=== PATIENT | male | born 1945 | race Caucasian/White ===

== ENCOUNTER 2020-08-02 11:58 | Inpatient (IN) | payer MEDICARE, SELFPAY ==
[2020-08-02] VITALS (40 sets, daily range): BP systolic 80–119; BP diastolic 54–81; PULSE 85–120; RESP 14–35; TEMP 38.1; O2SAT 88–95; BMI 22.4
--- NOTE | 2020-08-02 12:00 | XRR_ITS ---
PROCEDURE INFORMATION: Exam: XR Chest Exam date and time: 08/02/2020 12:34 PM Age: 74 years old Clinical indication: Chest pain; Additional info: Cp TECHNIQUE: Imaging protocol: XR of the chest Views: 1 view. COMPARISON: No relevant prior studies available. FINDINGS: Lungs: Hyperinflation. Bilateral upper lung nodular opacities. Nonspecific interstitial thickening. Pleural spaces: Unremarkable. No pleural effusion. No pneumothorax. Heart/Mediastinum: Minimal cardiomegaly. CABG. Bones/joints: Sternotomy. XR/XR chest 1V portable [id number] IMPRESSION: Bilateral upper lung nodular opacities and interstitial thickening. Consider follow-up.
--- NOTE | 2020-08-02 12:18 | ECG_ITS ---
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 Measurements Intervals [place] Rate: 103 P: 68 VT: 158 QRS: 248 QRSD: 134 T: 30 QT: 346 QTc: 455 Interpretive Statements SINUS TACHYCARDIA WITH OCCASIONAL SUPRAVENTRICULAR PREMATURE COMPLEXES MARKED RIGHT AXIS DEVIATION [QRS AXIS > 100] RIGHT BUNDLE BRANCH BLOCK [120+ ms QRS DURATION, UPRIGHT V1, 40+ ms S IN I/aVL/V4/V5/V6] MARKED ST DEPRESSION, CONSIDER SUBENDOCARDIAL INJURY [0.2+ mV ST DEPRESSION] Compared to ECG 08/02/2020 13:37:05 Right-axis deviation now present Myocardial infarct finding no longer present ST (T wave) deviation still present Electronically Signed On 08-02-2020 22:44:01 CDT by Tate Iglesias M.D. [id number]
[2020-08-02 12:22] LABS: Glucose Point of Care 384 mg/dL (70-110)
[2020-08-02] MEDS: aspirin 325 mg Tablet PO (12:45)
[2020-08-02] MEDS: nitroglycerin 0.4 mg sublingual Tablet SUBLINGUAL (12:48)
[2020-08-02 13:16] LABS: Basophils % 0.2 %; Eosinophils % 0.2 %; Hematocrit 44.9 % (42.0-52.0); Hemoglobin 14.8 g/dL (11.7-16.6); Lymphocytes # 0.9 10^3/uL (0.8-4.8); Lymphocytes % 5.3 %; Mean Corpuscular Hemoglobin 28.7 pg (28.0-34.0); Mean Platelet Volume 11.2 fL (7.4-10.4); Monocytes # 1.4 10^3/uL (0.2-0.9); Neutrophils # 14.94 10^3/uL (1.8-7.7); Neutrophils % 85.8 %; Nucleated Red Blood Cells % 0 %; Platelet Count 167 10^3/cmm (130-400); Red Blood Count 5.16 10^6/uL (4.1-5.3); White Blood Count 17.4 10^3/uL (4.0-10.0)
[2020-08-02 13:49] LABS: D Dimer 1.12 ug/mIFEU (0-0.59)
[2020-08-02 13:51] LABS: Troponin(5th) Baseline 3200 ng/L (0-15)
[2020-08-02 13:57] LABS: SARS Covid-2 Antigen Negative (Negative)
--- NOTE | 2020-08-02 14:01 | XACV_ITS ---
Ht: 175 cm Wt: 69 kg BSA: 1.83 m2 Gender: Male : 1945 Any Known Allergies: Penicillins Exam Priority: Routine Procedure(s): Procedure Description: Diagnostic procedure Procedure Description: Left Heart Catheterization Procedure Description: Aortogram Procedure Description: Coronary Angiography Diagnostic Cath Status: Urgent Diagnostic Findings * LAD is occluded in the mid segment after the take off of the diagonal artery. Diagonal artery has a 90% stenosis. * LM is a small caliber vessel. It has diffuse severe 60% stenosis, ARIELLA: 3 flow. * pCIRC to dCIRC: Severe 90% stenosis, ARIELLA: 3 flow. Serial lesions. * SVG to 2nd OM: 100% stenosis, ARIELLA: 0 flow. Culprit lesion. * pRCA: Severe 100% stenosis, ARIELLA: 0 flow. 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 * 1st Diag: Severe 90% stenosis, ARIELLA: 3 flow. * Three grafts visualized. * COBB to dLAD: patent. * SVG to RPDA: 100% stenosis, ARIELLA: 0 flow. * Coronary angiography shows right dominance. Conclusions 1. Indication: Patient presented late with Acute VA. Patient had chest pain for 3 days. On presentation to hospital, chest pain resolved. Initial troponin is elevated at 3200. Plan for diagnostic coronary angiogram. 2. COBB to LAD is patent (not supplying a large vascular bed). SVG to RCA chronically occluded. SVG to OM is the culprit for delayed presentation of VA and is completely occluded. 3. Elevated LVEDP. 4. There is severe coronary artery disease with three vessel disease. 5. Patient has prior CABG. Recommendations * Given patient's delayed presentation of VA, heart failure, elevated LVEDP and resolution of chest pain plan is to perform staged percutaneous coronary intervention of left main to left circumflex artery once patient is euvolemic. * Admit to CSU. * Trend troponin. * Aspirin and Plavix for atleast 1 year. * High intensity statin therapy. * Beta blockers as tolerated. * Order echocardiogram. Interventional RX Recommendation: medical therapy and/or counseling Diagnostic RX Recommendation: medical therapy and/or counseling Anticoagulation: Heparin Pressures Phase:Rest AO : 99 / 18 ( 49 ) @ 10:19:00 AM 92 / 49 ( 69 ) @ 10:19:00 AM LV : 97 / 5 / @ 10:19:00 AM Clinical Evaluation EBL: 5mL-10mL Procedural Details Procedure Consent Obtained. Pre-Procedure Time Out. Identified patient by full name and date of as verbalized by the patient/guarantor. Does the consent match the physician's order: N/A Emergent; Informed Consent not obtained due to time critical life threat. Accurate & Complete Informed Consent: N/A Emergent; Informed Consent not obtained due to time critical life threat. Inpatient/Outpatient History & Physical on Chart: N/A Emergent; Informed Consent not obtained due to time critical life threat. If H&P is completed, is and addenduem needed: N/A Emergent; Informed Consent not obtained due to time critical life threat; If yes, is the addendum complete: N/A Emergent; Informed Consent not obtained due to time critical life threat. Visualize and Verify Site with Patient/Guarantor: N/A. Relevant Radiology Images available: N/A Emergent; Informed Consent not obtained due to time critical life threat. Pre-op teaching completed and patient verbalized understanding. The risks, benefits, and alternatives of sedation and/or procedure were discussed by physician. The patient agrees to continue. Procedure started. PERRLA. 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 Lungs clear x 5 lobes. IV Site on Arrival: 20 gauge in the right anticubital. IV Site on Arrival: 20 gauge in the left anticubital. IV Fluids: 0.9% NaCl at KVO. 0 mL infused prior to environmental laboratory technician. Oxygen started at 2liters/min via nasal canula. bilateral groins was prepped with chloroprep then draped in the usual sterile fashion. Physician notified. Baseline sample Acquired. HR: 59 BPM. Equipment: 6F - Femoral. Cardiac Cath Pack. ACIST Manifold Kit Model BT 2000. Heparinized Saline (2 units/mL), 1000 mL bag. Kit, Micropuncture. Physician arrived. Physician scrubbed in. Immediate Pre-Procedure Time Out. Correct Patient: Yes; Correct Procedure: Yes; Correct Site: Yes; Correct Patient Position: Yes; Correct Supplies: Yes; Dried Flammable Prep: Yes; Blood Products Available: No;. Lidocaine 1% infiltrated to the right groin. Arterial access obtained with micropuncture set. A 6 algerian JL4 catheter in over wire. Multiple views taken of left coronary artery. Catheter out. A 6 algerian JR4 catheter in over wire. Multiple views taken of right coronary artery. SVG to Diaganol occluded. SVG to RCA occluded. exchange wire removed. guidewire insterted. Inventory is TR Glidewire Angled Stiff Shaft .035 260cm. COBB to LAD visualized. Catheter out. A 6 algerian Angled Pig catheter in over wire. EDP Sample taken: LV 97/5,25; HR: 94 BPM; SpO2: Off%. Pullback taken: LV Off; AO Off; Mean: , Peak to Peak: , SEP: ; HR: 92 BPM; SpO2: 92%. Aortogram performed in [place] @ 20 mL/second for a total of 40 mL. Catheter out. A Suture was successful obtaining hemostatsis at the Right Femoral artery insertion site. Sheath(s) sutured into position with 2-0 silk and sterile 4x4's and Op-site applied over the site. No oozing or signs and symptoms of hematoma noted. Arterial sheath flushed and connected to tranducer and pressure bag with heparinized saline. PERRLA. 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 No VTE prophylaxis required. Fluoro: 9:06. Contrast type used: Omnipaque 300 mgI/mL, 500 mL bottle. [id number]. Complications: none. Estimated blood loss: 5mL-10mL. Procedure completed. Post-op diagnosis: occluded svg to rca, om, diag. Medication's Wasted: Lidocaine 1% = 10 mL. Medication's Wasted: Nitro = 50 mg. Medication's Wasted: Heparin = 4000 units. Medication's Wasted: Other = versed 1 mg. Medication's Wasted: Other = fentanyl 50 mcg. Total IV fluids: 52.6 mL. Patient transferred by bed to 1st floor. [facility] Clinical Fraility Score: 3: Managing Well. Cloth Winding Supervisor Indications: ACS > 24 hours. Chest Pain Symptom Assessment: Typical Angina Symptoms. Access Site Site: Right Femoral artery Sheath Size: 6 Fr Hemostasis Method: Suture Hemostasis Success: Successful Procedure Medications Start: 2:47 PM Stop: 2:47 PM Medication: Versed Amount: 1 mg Route: I.V. Start: 2:47 PM Stop: 2:47 PM Medication: Fentanyl Amount: 25 mcg Route: I.V. Start: 2:55 PM Stop: 2:55 PM Medication: Versed Amount: 1 mg Route: I.V. Start: 2:56 PM Stop: 2:56 PM Medication: Fentanyl Amount: 25 mcg Route: I.V. Start: 3:11 PM Stop: 3:11 PM Medication: Versed Amount: 1 mg Route: I.V. I, the attending physician, have reviewed and verified all procedure medications. Yes, all medications given per verbal order History/Risk Factors Hypertension: Yes Dyslipidemia: No Peripheral Arterial Disease (PAD): No Myocardial Infarction (VA): Yes Obesity: No Renal Disease: No Tobacco Use: Former Prior Interventions PCI: Yes CABG: Yes Valve Surgery: No Report Signatures Finalized by Betito Jolly MD on 08/09/2020 03:46 PM
--- NOTE | 2020-08-02 14:05 | W.ED.CHESTPA ---
HPI - Chest Pain General: Chief Complaint: Chest Pain Stated Complaint: CP Time Seen by Provider: 08/02/20 12:15 History of Present Illness: HPI narrative: The patient is a 74-year-old male who comes to the ER complaining of 3 days of on and off chest pressure, shortness of breath which is worse with exertion. He has a history of a CABG in 2007 and has not had chest pain since then. On arrival he was given aspirin 325 and a nitroglycerin which relieved his chest pressure entirely. MD complaint: chest pain Pertinent past history: coronary artery disease, prior SD and CABG Onset (ago): day(s) (3) Onset: during rest and during exertion Pain location: left chest Severity: moderate Quality: tightness, heaviness and similar to prior SD Relieving factors: nitroglycerin Exacerbating factors: exertion Associated symptoms: Reports dyspnea; Deny abdominal pain or palpitations Review of Systems General: Reports: 10 or more systems reviewed and unremarkable except in HPI and below Const: Denies: fatigue Eyes: Denies: change in vision, blurry vision or eye redness ENMT: Denies: throat pain, swelling of lips/tongue, ear or mastoid pain or nasal congestion Card: Reports: chest pain; Denies: palpitations, irregular heart rhythm, edema, dyspnea on exertion or orthopnea Resp: Reports: dyspnea GI: Denies: abdominal pain, diarrhea or GI cramping : Denies: flank pain, urinary frequency or urinary urgency Musc: Denies: neck pain, back pain, extremity pain, joint pain, joint redness, limited range of motion or muscle weakness Skin/Breast: Denies: rash, pruritus, erythema, skin pain or skin tenderness Neuro: Denies: headache(s), numbness in extremities, weakness in extremities, sensory changes, difficulty walking, dizziness, confusion or Slurred speech present Psych: Denies: anxiety or depression Endo: Denies: polyuria All/Imm: Denies: urticaria, throat swelling or tongue swelling Physical Exam Const: COMMON NORMALS: no acute distress, average body habitus, patient oriented x3, no limitations, healthy appearing, alert and well nourished GENERAL APPEARANCE: cooperative, comfortable, well kempt and well developed ORIENTATION/CONSCIOUSNESS: Yes awake, Yes oriented to person, Yes oriented to place and Yes oriented to time HENMT: COMMON NORMALS: normocephalic, external ears normal and Normal external nose present HEAD & SCALP: normal to inspection and normocephalic NOSE: Normal external nose present EXTERNAL EAR: Yes external ears normal MOUTH: Normal oral and palatal mucosa present THROAT: posterior oropharynx normal Eye: COMMON NORMALS: Equal, round and reactive pupils present and EOMs intact bilaterally GENERAL EYE: appearance normal, both eyes and all related structures PUPIL: Yes Equal, round and reactive pupils present Neck/C-Spine: COMMON NORMALS: full ROM, no lymphadenopathy, no meningeal signs and no JVD GENERAL: Yes normal visual inspection Lymph: LYMPHATIC: no lymphadenopathy noted Chest: COMMONS NORMALS: normal inspection of the chest and normal palpation of entire chest wall Resp: COMMON NORMALS: normal respiratory effort, No retractions, No use of accessory muscles, clear to auscultation bilaterally and percussion normal EFFORT & INSPECTION: Yes able to speak in complete sentences AUSCULTATION: clear to auscultation bilaterally PERCUSSION: percussion normal Cardio: COMMON NORMALS: no JVD, regular rate, regular rhythm, S1 normal heart sound present, S2 normal heart sound present and Peripheral pulses 2+ throughout RATE: regular rate RHYTHM: regular rhythm HEART SOUNDS: S1 normal heart sound present and S2 normal heart sound present PERIPHERAL PULSES: Peripheral pulses 2+ throughout GI: COMMON NORMALS: Normal to inspection, nondistended, normoactive bowel sounds present, Soft to palpation, non-tender and no masses INSPECTION: Yes normal to inspection PALPATION: Yes Soft to palpation : COMMON NORMALS: Yes no CVA tenderness BLADDER/KIDNEY EXAM: Yes no CVA tenderness Back/Pelvis: COMMON NORMALS: no CVA tenderness, thoracic and lumbar spine normal to inspection, no thoracic nor lumbar tenderness and thoraco-lumbar ROM normal Extremity: COMMON NORMALS: normal to inspection, full ROM, capillary refill normal, no joint enlargement and no pedal edema GENERAL: Yes normal exam except as noted Neuro: COMMON NORMALS: patient oriented x3, CN's II-XII intact bilaterally, moves all extremities, no focal motor deficits, no sensory deficits noted and gait normal SENSORIUM/ORIENTATION: Yes alert, Yes oriented to person, Yes oriented to place and Yes oriented to time MENINGEAL SIGNS: Yes no meningeal signs Psych: COMMON NORMALS: mental status grossly normal, Normal thought process present, cooperative, normal affect and speech normal APPEARANCE: Yes well kempt ATTITUDE: Yes calm SPEECH: Yes normal speech THOUGHT PROCESS: Normal thought process present Skin: COMMON NORMALS: no rashes or lesions noted GENERAL SKIN EXAM: no rashes or lesions noted Course Vital Signs: Vital signs: Vital Signs Pulse Rate 101 H 08/02/20 14:00 Respiratory Rate 24 H 08/02/20 14:00 Blood Pressure 100/72 08/02/20 14:00 Pulse Oximetry 95 08/02/20 14:00 MDM - Chest Pain MDM Narrative: Medical decision making narrative: Patient has had 3 days of chest pain typical angina. Given aspirin and nitroglycerin. The single nitroglycerin resolved his pain completely. Troponin is [address] some [address] depressions. Got Dr. Jolly involved early and he initially recommended no intervention however when the troponin came back 3200 he recommended taking 2 cath for a diagnostic evaluation. Lab Data: Labs: Lab Results 08/02/20 08/02/20 08/02/20 Range/Units 11:41 11:41 11:41 WBC 17.4 H (4.0-10.0) 10^3/ uL RBC 5.16 (4.1-5.3) 10^6/u L Hgb 14.8 (11.7-16.6) g/dL Hct 44.9 (42.0-52.0) % MCV 87.0 (80-94) fL MCH 28.7 (28.0-34.0) pg MCHC 33.0 (30.0-36.0) g/dL RDW 13.0 (12.1-15.1) % Plt Count 167 (130-400) 10^3/c mm MPV 11.2 H (7.4-10.4) fL Neut % (Auto) 85.8 % Lymph % (Auto) 5.3 % [place] % (Auto) 8.0 % Eos % (Auto) 0.2 % Baso % (Auto) 0.2 % Neut # (Auto) 14.94 H (1.8-7.7) 10^3/u L Lymph # (Auto) 0.9 (0.8-4.8) 10^3/u L [place] # (Auto) 1.4 H (0.2-0.9) 10^3/u L Eos # (Auto) 0.0 (0.0-0.8) 10^3/u L Baso # (Auto) 0.0 (0.0-0.1) 10^3/u L Nucleated RBC % (a uto) 0 % Nucleated RBCs # 0.0 /100WBC D-Dimer (0-0.59) ug/mIFE U Sodium 127 L (136-145) mmol/L Potassium 4.4 (3.5-5.1) mmol/L Chloride 91 L (98-107) mmol/L Carbon Dioxide 19 L (22-29) mmol/L Anion Gap 21.4 H (5-19) BUN 32 H (8-23) mg/dL Creatinine 1.1 (0.7-1.2) mg/dL GFR Calculation Not Reportable Glucose 378 H (65-115) mg/dL POC Glucose (70-110) mg/dL Calculated Osmolal ity 286 (285-295) mOsm/k g Calcium 9.5 (8.5-10.5) mg/dL Total Bilirubin 1.3 H (0.15-1.2) mg/dL AST 66 H (0-40) U/L ALT 45 H (0-41) U/L Alkaline Phosphata se 69 (40-130) IU/L Troponin T Baselin e 3200 H* (0-15) ng/L Delta Troponin T (0-10) ABS# NT-Pro-B Natriuret Pep 48189 H (0-125) pg/mL Total Protein 7.3 (6.6-8.7) g/dL Albumin 3.5 (3.5-5.2) g/dL Globulin 3.8 (1.3-4.6) g/dL Urine Color (Yellow) Urine Appearance (CLEAR) Urine pH (5-7) Ur Specific Gravit y (1.005-1.030) Urine Protein (Negative) Urine Glucose (UA) (Normal) Urine Ketones (Negative) Urine Blood (Negative) Urine Nitrate (Negative) Urine Bilirubin (Negative) Urine Urobilinogen (Negative) mg/dL Ur Leukocyte Elly ase (Negative) Urine RBC (0-2) /hpf Urine WBC (0-5) /hpf Ur Squamous Epith Cells (0-5) /hpf Amorphous Sediment Urine Bacteria (NONE) /hpf SARS-CoV-2 Ag (Rap id) (Negative) 0308/02/20 08/02/20 Range/Units 11:41 12:20 12:36 WBC (4.0-10.0) 10^3/ uL RBC (4.1-5.3) 10^6/u L Hgb (11.7-16.6) g/dL Hct (42.0-52.0) % MCV (80-94) fL MCH (28.0-34.0) pg MCHC (30.0-36.0) g/dL RDW (12.1-15.1) % Plt Count (130-400) 10^3/c mm MPV (7.4-10.4) fL Neut % (Auto) % Lymph % (Auto) % [place] % (Auto) % Eos % (Auto) % Baso % (Auto) % Neut # (Auto) (1.8-7.7) 10^3/u L Lymph # (Auto) (0.8-4.8) 10^3/u L [place] # (Auto) (0.2-0.9) 10^3/u L Eos # (Auto) (0.0-0.8) 10^3/u L Baso # (Auto) (0.0-0.1) 10^3/u L Nucleated RBC % (a uto) % Nucleated RBCs # /100WBC D-Dimer 1.12 H (0-0.59) ug/mIFE U Sodium (136-145) mmol/L Potassium (3.5-5.1) mmol/L Chloride (98-107) mmol/L Carbon Dioxide (22-29) mmol/L Anion Gap (5-19) BUN (8-23) mg/dL Creatinine (0.7-1.2) mg/dL GFR Calculation Glucose (65-115) mg/dL POC Glucose 384 H (70-110) mg/dL Calculated Osmolal ity (285-295) mOsm/k g Calcium (8.5-10.5) mg/dL Total Bilirubin (0.15-1.2) mg/dL AST (0-40) U/L ALT (0-41) U/L Alkaline Phosphata se (40-130) IU/L Troponin T Baselin e (0-15) ng/L Delta Troponin T (0-10) ABS# NT-Pro-B Natriuret Pep (0-125) pg/mL Total Protein (6.6-8.7) g/dL Albumin (3.5-5.2) g/dL Globulin (1.3-4.6) g/dL Urine Color Dark yellow (Yellow) Urine Appearance Hazy A (CLEAR) Urine pH 5 (5-7) Ur Specific Gravit y 1.030 (1.005-1.030) Urine Protein Trace (Negative) Urine Glucose (UA) 4+ H (Normal) Urine Ketones 2+ H (Negative) Urine Blood 3+ H (Negative) Urine Nitrate Negative (Negative) Urine Bilirubin Neg (Negative) Urine Urobilinogen Norm (Negative) mg/dL Ur Leukocyte Elly ase Trace H (Negative) Urine RBC 15-25 H (0-2) /hpf Urine WBC 25-40 H (0-5) /hpf Ur Squamous Epith Cells 0-4 H (0-5) /hpf Amorphous Sediment Not Reportable Urine Bacteria 3+ H (NONE) /hpf SARS-CoV-2 Ag (Rap id) (Negative) 08/02/20 08/02/20 Range/Units 13:02 13:45 WBC (4.0-10.0) 10^3/ uL RBC (4.1-5.3) 10^6/u L Hgb (11.7-16.6) g/dL Hct (42.0-52.0) % MCV (80-94) fL MCH (28.0-34.0) pg MCHC (30.0-36.0) g/dL RDW (12.1-15.1) % Plt Count (130-400) 10^3/c mm MPV (7.4-10.4) fL Neut % (Auto) % Lymph % (Auto) % [place] % (Auto) % Eos % (Auto) % Baso % (Auto) % Neut # (Auto) (1.8-7.7) 10^3/u L Lymph # (Auto) (0.8-4.8) 10^3/u L [place] # (Auto) (0.2-0.9) 10^3/u L Eos # (Auto) (0.0-0.8) 10^3/u L Baso # (Auto) (0.0-0.1) 10^3/u L Nucleated RBC % (a uto) % Nucleated RBCs # /100WBC D-Dimer (0-0.59) ug/mIFE U Sodium (136-145) mmol/L Potassium (3.5-5.1) mmol/L Chloride (98-107) mmol/L Carbon Dioxide (22-29) mmol/L Anion Gap (5-19) BUN (8-23) mg/dL Creatinine (0.7-1.2) mg/dL GFR Calculation Glucose (65-115) mg/dL POC Glucose (70-110) mg/dL Calculated Osmolal ity (285-295) mOsm/k g Calcium (8.5-10.5) mg/dL Total Bilirubin (0.15-1.2) mg/dL AST (0-40) U/L ALT (0-41) U/L Alkaline Phosphata se (40-130) IU/L Troponin T Baselin e (0-15) ng/L Delta Troponin T 1 (0-10) ABS# NT-Pro-B Natriuret Pep (0-125) pg/mL Total Protein (6.6-8.7) g/dL Albumin (3.5-5.2) g/dL Globulin (1.3-4.6) g/dL Urine Color (Yellow) Urine Appearance (CLEAR) Urine pH (5-7) Ur Specific Gravit y (1.005-1.030) Urine Protein (Negative) Urine Glucose (UA) (Normal) Urine Ketones (Negative) Urine Blood (Negative) Urine Nitrate (Negative) Urine Bilirubin (Negative) Urine Urobilinogen (Negative) mg/dL Ur Leukocyte Elly ase (Negative) Urine RBC (0-2) /hpf Urine WBC (0-5) /hpf Ur Squamous Epith Cells (0-5) /hpf Amorphous Sediment Urine Bacteria (NONE) /hpf SARS-CoV-2 Ag (Rap id) Negative (Negative) Discharge Plan Discharge Patient Disposition: Admitted As Inpatient Clinical Impression: Stable angina Condition: Stable Coding Level of Care Code ED Registered Private Duty Nurse for Terese Fwd Exam Comprehensive
[2020-08-02] MEDS: clopidogrel 300 mg Tablet 600 MG PO (14:08)
[2020-08-02 14:14] LABS: Alanine Aminotransferase 45 U/L (0-41); Albumin Level 3.5 g/dL (3.5-5.2); Alkaline Phosphatase 69 IU/L (40-130); Blood Urea Nitrogen 32 mg/dL (8-23); Calcium 9.5 mg/dL (8.5-10.5); Carbon Dioxide 19 mmol/L (22-29); Chloride 91 mmol/L (98-107); Globulin 3.8 g/dL (1.3-4.6); Glucose 378 mg/dL (65-115); NT Pro B Type Natriuretic Pept 19065 pg/mL (0-125); Osmolality Calculated 286 mOsm/kg (285-295); Sodium 127 mmol/L (136-145); Total Bilirubin 1.3 mg/dL (0.15-1.2); Total Protein 7.3 g/dL (6.6-8.7)
[2020-08-02 14:14] LABS: Add Urine Microscopic? YES; Bilirubin Urine Neg (Negative); Blood Urine 3+ (Negative); Glucose Urine UA 4+ (Normal); Ketones Urine 2+ (Negative); Leukocyte Esterase Urine Trace (Negative); Nitrate Urine Negative (Negative); Protein Urine Trace (Negative); Urine Appearance Hazy (CLEAR); Urine Color Dark Yellow (Yellow); Urobilinogen Urine Norm (Negative); pH Urine 5 (5-7)
[2020-08-02 14:15] LABS: Add Urine Culture? Yes; Bacteria Urine 3+ /hpf; RBC Urine 15-25 /hpf (0-2); Squamous Epithelial Cell Urine 0-4 /hpf (0-5); WBC Urine 25-40 /hpf (0-5)
[2020-08-02 14:17] LABS: Anion Gap 21.4 (5-19); Aspartate Amino Transferase 66 U/L (0-40); Potassium 4.4 mmol/L (3.5-5.1)
--- NOTE | 2020-08-02 14:18 | ECG_ITS ---
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 Measurements Intervals [place] Rate: 103 P: 68 [place]: 163 QRS: -85 QRSD: 139 T: 37 QT: 383 QTc: 502 Interpretive Statements SINUS TACHYCARDIA WITH FREQUENT SUPRAVENTRICULAR PREMATURE COMPLEXES RIGHT BUNDLE BRANCH BLOCK [120+ ms QRS DURATION, UPRIGHT V1, 40+ ms S IN I/aVL/V4/V5/V6] INFERIOR MYOCARDIAL INFARCTION , OF INDETERMINATE AGE [40+ ms Q WAVE AND/OR ST/T ABNORMALITY IN II/aVF] MARKED ST DEPRESSION, CONSIDER SUBENDOCARDIAL INJURY [0.2+ mV ST DEPRESSION] ACUTE [place] Compared to ECG 08/02/2020 12:04:15 Right bundle-branch block now present Myocardial infarct finding now present ST (T wave) deviation now present Electronically Signed On 08-02-2020 22:53:16 CDT by Tate Iglesias M.D. [id number]
[2020-08-02] MEDS: heparin 5,000 unit/mL INJ 1 mL 4000 UNIT IVP (14:22)
--- NOTE | 2020-08-02 14:27 | PC.NURSE ---
patient denied any chest pain or abdominal pain at this time. no acute distress noted
[2020-08-02 14:31] LABS: Troponin 5 2HR Delta 1 ABS# (0-10)
[2020-08-02 14:47] LABS: Troponin 5 2HR 3201 ng/L (0-15)
--- NOTE | 2020-08-02 15:53 | P.HP_ITS ---
Providers/Chief Complaint Admitting Physician: Betito Jolly M.D Chief Complaint: CP History of Present Illness Ze Waite is a 74 year old male with PMH of hypertension, diabetes, coronary artery disease s/p CABG x5 at [facility] in [place] in 2007 presented with 3 days of on and off chest pain. Substernal and left sided severe chest pain. Last major episode was last night.This is associated with shortness of breath. Patient is now chest pain free. On presentation, EKG showed diffuse ST depressions. Initial troponin was 3200 and trended down. Patient was taken to the receiver/laborer. Coronary angiography showed occluded SVG grafts. Only COBB to LAD is patent. RCA is business continuity director. Left main to LCx has severe disease for which there will be staged PCI. Review of Systems Const: Denies: fever(s) or chills Eyes: Denies: change in vision ENMT: Denies: throat pain Card: Reports: chest pain, dyspnea on exertion and orthopnea Resp: Reports: dyspnea GI: Reports: nausea; Denies: abdominal pain : Denies: flank pain Musc: Denies: neck pain Skin/Breast: Denies: rash Neuro: Denies: headache(s) Psych: Denies: anxiety Endo: Denies: polyuria Daniel/Lymph: Denies: easy bruising All/Imm: Denies: urticaria Medications/Allergies Home Medications Medication Instructions Recorded Confirmed Last Taken Type cranberry extract 250 mg PO DAILY@08/02/20 08/02/20 08/02/20 History krill oil 1 cap PO DAILY@08/02/20 08/02/20 08/02/20 History liraglutide [Victoza 3-Ruben] 0.6 mg SUBCUT DAILY@08/02/20 08/02/20 08/01/20 History lutein 6 mg PO DAILY@08/02/20 08/02/20 08/02/20 History Allergies Allergy/AdvReac Type Severity Reaction Status Date / Time Penicillins Allergy ALGY-Anaphy Verified 08/02/20 12:37 laxis PFSH Acute PFSH: Medical History Abnormal colonoscopy Polypectomy BPH (benign prostatic hyperplasia) Diverticula of colon Hypertension Type 2 diabetes mellitus Surgical History S/P CABG (coronary artery bypass graft) 5 vessel bypass Family History Denies family history of Cancer Social History Smoking and tobacco status: former smoker Alcohol intake: never Substance/Drug Use: never Household members: family Housing: House Vitals/I&O/Wt Last Vital Signs Pulse 101 H 08/02/20 14:00 Resp 24 H 08/02/20 14:00 BP 100/72 08/02/20 14:00 Pulse Ox 95 08/02/20 14:00 Weight last 48 hrs Weight 152 lb Physical Exam Narrative: EXAM NARRATIVE: Alert and oriented x 3 S1, S2 no murmur No acute respiratory distress, clear to auscultation bilaterally Abdomen is soft nontender EOMI, PERRLA No neurological deficit No lower extremity edema Appropriate mood and affect Data : 08/02/20 11:41 08/02/20 11:41 A&P Assessment and plan (1) NSTEMI (non-ST elevated myocardial infarction): Status: Acute (2) Type 2 diabetes mellitus: Status: Acute (3) Hypertension: Status: Acute Patient has presented late with acute SD evidenced by significantly elevated troponin that trended down and spontaneous chest pain resolution. Coronary angiogram demonstrated, likely culprit was SVG to OM/diagonal that is ostially occluded. SVG to RCA is occluded as well. COBB to LAD is patent. Given patient is chest pain free now with downtrending troponins, his LVEDP was significantly elevated, we decided to perform PCI of left main to LCx as a staged procedure in 2 days. Continue aspirin and Plavix High intensity statin therapy Therapeutic anticoagulation for atleast 48 hours (to be started 4 hours after the sheath is removed and no bleeding is noted) Patient's LVEDP and NT Pro BNP is elevated, will start Lasix 20mg IV bid from tomorrow morning Possible UTI. We have consulted hospitalist service to help with management of medical issues including antibiotic management and diabetes. Appreciate input ECHO has been ordered Attestations Medical Necessity Statement*: Care expected to cross 2 midnights. Patient has presented late with SD. Will need staged PCI in 2 day once is euvolemic Coding Level of Care Code Acute Chip Washer for g Fwd Diagnoses NSTEMI (non-ST elevated myocardial infarction) I21.4 Type 2 diabetes mellitus E11.9 Hypertension I10
--- NOTE | 2020-08-02 16:00 | P.CONIM_ITS ---
Providers/Reason For Consult Consulting Physican/Specialty*: Hospitalist service Reason for Consult*: Type 2 diabetes hyperglycemia Attending Physician: Betito Jolly M.D History of Present Illness History of Present Illness Ze Waite is a 74 year old male who has history of type 2 diabetes, takes Victoza at home presents today with chief complaint of chest pain. Patient is stating that his symptoms started on Monday. He has been having intermittent chest pain and last night it was the worse he could only sleep for 2 hours he is describing this chest pain as pressure-like sensation, excruciating pain. He has history of established coronary disease status post CABG. He was admitted under cardiology service for management of coronary ischemia. Hospitalist service is requested to manage her type 2 diabetes and active hyperglycemia. Patient is stating that at home his sugar runs normal but since Monday it has been running high around 300s despite not being able to eat much. He does not smoke or drink alcohol and tries to eat healthy diet. In last 3 to 4 days he has been experiencing urinary frequency without dysuria or fever I requested hemoglobin A1c started him on cardiac/consistent carb diet and moderate sliding scale When I saw him his blood pressure was 99/47 mmHg chest pain-free troponin 3200, BNP 19,000 however clinically he looks euvolemic saturating well on room air He was taken to the cardiac Violin Mechanic from the ER. Review of Systems Const: Denies: fever(s) or chills Eyes: Denies: change in vision ENMT: Denies: throat pain Card: Reports: chest pain, dyspnea on exertion and orthopnea Resp: Reports: dyspnea GI: Reports: nausea; Denies: abdominal pain : Denies: flank pain Musc: Denies: neck pain Skin/Breast: Denies: rash Neuro: Denies: headache(s) Psych: Denies: anxiety Endo: Denies: polyuria Daniel/Lymph: Denies: easy bruising All/Imm: Denies: urticaria Meds/Allergies Home Medications and Allergies Home Medications Medication Instructions Recorded Confirmed Last Taken Type cranberry extract 250 mg PO DAILY@08/02/20 08/02/20 08/02/20 History krill oil 1 cap PO DAILY@08/02/20 08/02/20 08/02/20 History liraglutide [Victoza 3-Ruben] 0.6 mg SUBCUT DAILY@12 08/02/20 08/02/20 08/01/20 History lutein 6 mg PO DAILY@09 08/02/20 08/02/20 08/02/20 History Allergies Allergy/AdvReac Type Severity Reaction Status Date / Time Penicillins Allergy ALGY-Anaphy Verified 08/02/20 12:37 laxis PFSH Acute PFSH: Medical History Abnormal colonoscopy Polypectomy BPH (benign prostatic hyperplasia) Diverticula of colon Hypertension Type 2 diabetes mellitus Surgical History S/P CABG (coronary artery bypass graft) 5 vessel bypass Family History Denies family history of Cancer Social History Smoking and tobacco status: former smoker Alcohol intake: never Substance/Drug Use: never Household members: family Housing: House Vitals/I&O/Wt Last Vital Signs Pulse 101 H 08/02/20 14:00 Resp 24 H 08/02/20 14:00 BP 100/72 08/02/20 14:00 Pulse Ox 95 08/02/20 14:00 Weight last 48 hrs Weight 68.946 kg Physical Exam Narrative: EXAM NARRATIVE: Very pleasant elderly male who appears younger than stated age Was laying comfortably in his bed in supine position saturating well on room air S1, S2 no murmur appreciated no active signs of fluid overload No acute respiratory distress Abdomen is soft nontender EOMI, PERRLA No neurological deficit Low symmetry no edema gangrene ulcer Appropriate mood and affect No joint swelling A&P Assessment and plan (1) STEMI (ST elevation myocardial infarction): Status: Acute (2) Type 2 diabetes mellitus: Status: Inactive Additional A&P Information STEMI STEMI alert was called in the ER, he went to the Violin Mechanic status post right femoral cardiac cath Please see cardiology note for the details, EKG concerning for posterior wall NJ Currently chest pain-free on aspirin, Plavix and statin will comanage along cardiology Femoral sheath has been pulled without any complication Type 2 diabetes Poorly controlled, hemoglobin A1c 9.3 I would start him on Lantus 10 units along with moderate dose sliding scale and consistent carb diet Lisinopril for microvascular benefits once his blood pressure is better Patient counseled will need diabetic insulin education High BNP however clinically patient does not look fluid overloaded He does have mild pulmonary vascular congestion with transaminitis Cardiology has started him on IV Lasix, monitor blood pressure as if systolic is soft 99 to 100 mmHg Polyuria without any active signs of UTI I would not start ceftriaxone he does not meet sepsis criteria is leukocytosis is most likely secondary to stress response of STEMI Full code Consistent carb diet DVT prophylaxis low Consult Attestations Medical Necessity Statement: As per cardiology Time Spent in Patient Care: (>than 50% of time spent in counselling and/or direct pt care on unit) . 35mins Coding Level of Care Code Acute Farm Management Adviser for Terese Somers Diagnoses STEMI (ST elevation myocardial infarction) I21.3 Type 2 diabetes mellitus E11.9
[2020-08-02 16:50] LABS: Glucose Point of Care 363 mg/dL (70-110)
[2020-08-02 17:33] LABS: Partial Thromboplastin Time 37.5 SECONDS (23.9-36.7)
[2020-08-02 17:56] LABS: Estmated Average Glucose 220; Hemoglobin A1C 9.3 % (4.0-6.0)
--- NOTE | 2020-08-02 18:00 | ECG_ITS ---
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 Measurements Intervals [place] Rate: P: DC: QRS: 0 QRSD: T: 0 QT: QTc: Interpretive Statements Atrial fibrillation with controlled ventricular response rate Features of right ventricular hypertrophy NO FURTHER INTERPRETATION POSSIBLE ATYPICAL ECG WARNING: DATA QUALITY MAY AFFECT INTERPRETATION No previous ECG available for comparison Electronically Signed On 08-02-2020 22:52:20 CDT by Tate Iglesias M.D. [id number]
--- NOTE | 2020-08-02 18:00 | PC.NURSE ---
Sheath removed per instructions received via telephone from Dr. Jolly pulls sheath when PTT is less than 45 Instructions to start Lovenox sub q 4 hours after sheath pull; run IV fluids from catholic priest at 75ml/hr for 4 hours and stop no hematoma or outward events noted patient tolerated sheath removal well
[2020-08-02] MEDS: FUROsemide 10 mg/mL SDV 2mL 20 MG IVP (18:08)
[2020-08-02 18:11] LABS: Troponin 5 6HR 2691 ng/L (0-15)
--- NOTE | 2020-08-02 19:51 | PC.NURSE ---
Bedside report conducted with Ness DENNISON from [facility]. Patient laying in bed watching TV. R groin site soft and showing no sign or symptoms of bleeding or hematoma. Patient educated about s/s to report to nurse immediately regarding pain and moisture or wet feeling from groin site. Patient educated on splinting groin site with hand if coughing. Patient alert and oriented X 4. Will continue to monitor and assist as needed following CPOC. All questions answered bed side rails up X 2 call light in reach room free of clutter.
[2020-08-02] MEDS: atorvastatin 40 mg Tablet PO (21:01)
[2020-08-02 21:02] LABS: Glucose Point of Care 292 mg/dL (70-110)
[2020-08-02] MEDS: insulin glargine 100 units/1 mL 10 UNIT SUBCUT (21:02)
[2020-08-02] MEDS: enoxaparin 40 mg/0.4 mL Syringe SUBCUT (22:16)
[2020-08-02] MEDS: acetaminophen 325 mg Tablet 650 MG PO (22:17)
[2020-08-02] MEDS: levofloxacin-dextrose 5 % 750 MG/150 ML PREMIX 100 MG IV (22:17)
--- NOTE | 2020-08-02 23:16 | PC.NURSE ---
Provider Dr. Jolly called and discussed anticoagulation therapy of patient. Provider notified of 40 mg of lovenox given as ordered at 2215. Patient presents with no hematoma to R groin site. Provider want patient to be on therapuetic Lovenox therapy new order for 30 mg to make total of 70 mg tonight and placed new order for tomorrow for 70 mg Lovenox Subcutaneous BID at 11 am. Patient did have mild fever of 100.5 blankets removed and tylenol given. Dr Samayoa came and assessed patient due to fever and tachycardia. Patient asymptomatic other than stating he is cold. Educated patient on aspects of fever and blanket would only cause fever to increase. Patient acknowledged education and was amicable to treatment at this time. Patient also started on Levaquin for possible UTI. Will continue to monitor and assist as needed following CPOC
[2020-08-02] MEDS: enoxaparin 100 mg/mL Syringe 30 MG SUBCUT (23:48)
[2020-08-03] VITALS (91 sets, daily range): BP systolic 75–116; BP diastolic 54–77; PULSE 89–129; RESP 10–36; TEMP 36.6–38.1; O2SAT 86–95
--- NOTE | 2020-08-03 00:11 | ECG_ITS ---
[facility] Test Date: 2020-08-03 Pat Name: Ze Waite Department: Room: 112 Gender: Male Drafter Castings: : 1945 Requested By: Tate Iglesias Order Number: [id number] Eboni MD: Tate Iglesias M.D. Measurements Intervals [place] Rate: 89 P: -10 [place]: 165 QRS: 147 QRSD: 136 T: 9 QT: 422 QTc: 515 Interpretive Statements SINUS RHYTHM WITH OCCASIONAL SUPRAVENTRICULAR PREMATURE COMPLEXES RIGHT BUNDLE BRANCH BLOCK [120+ ms QRS DURATION, UPRIGHT V1, 40+ ms S IN I/aVL/V4/V5/V6] LATERAL MYOCARDIAL INFARCTION [40+ ms Q WAVE AND/OR ST/T ABNORMALITY IN I/aVL/V5/V6], OF INDETERMINATE AGE MARKED ST DEPRESSION, CONSIDER SUBENDOCARDIAL INJURY [0.2+ mV ST DEPRESSION] Compared to ECG 08/02/2020 18:07:19 Myocardial infarct finding now present Sinus tachycardia no longer present Right-axis deviation no longer present ST (T wave) deviation still present Electronically Signed On 08-03-2020 23:54:21 CDT by Tate Iglesias M.D. [id number]
[2020-08-03] MEDS: sodium chloride 0.9% 250 ML IV (00:30)
--- NOTE | 2020-08-03 00:40 | PC.NURSE ---
Contacted provider Dr. Iglesias about drop in BP from normal to 75/59 which was lower than previous checks. No complications at the site or s/s of hematoma. Patient voicing no pain. Provider ordered EKG and 250 mL bolus of NS and EKG to be faxed to him. Bolus given and BP now 97/63. Patient stable and doing better at this time will continue to monitor and assist as needed following CPOC
--- NOTE | 2020-08-03 01:17 | ECG_ITS ---
[facility] Test Date: 2020-08-03 Pat Name: Ze Waite Department: Room: 112 Gender: Male Revival Clerk: : 1945 Requested By: Betito Jolly Order Number: [id number] Eboni MD: Tate Iglesias M.D. Measurements Intervals [place] Rate: 94 P: 51 [place]: 163 QRS: -84 QRSD: 139 T: 40 QT: 383 QTc: 481 Interpretive Statements SINUS RHYTHM WITH FREQUENT SUPRAVENTRICULAR PREMATURE COMPLEXES RIGHT BUNDLE BRANCH BLOCK [120+ ms QRS DURATION, UPRIGHT V1, 40+ ms S IN I/aVL/V4/V5/V6] INFERIOR MYOCARDIAL INFARCTION [40+ ms Q WAVE AND/OR ST/T ABNORMALITY IN II/aVF], OF INDETERMINATE AGE MARKED ST DEPRESSION, CONSIDER SUBENDOCARDIAL INJURY [0.2+ mV ST DEPRESSION] Compared to ECG 08/03/2020 00:20:49 No significant changes Electronically Signed On 08-03-2020 23:54:55 CDT by Tate Iglesias M.D. [id number]
[2020-08-03] MEDS: nitroglycerin 0.4 mg sublingual Tablet SUBLINGUAL ×2 (01:25→14:08)
--- NOTE | 2020-08-03 01:28 | PC.NURSE ---
Dr. Ray notified of patient complaining of chest tightness. Patient states it doesn't really hurt, it's just enough to make me feel short of breath. NS 250 bolus still running. BP 97/63. Lungs sound clear. Oxygen saturation 94 percent. Ordered to give one nitro SL and continue to monitor.
--- NOTE | 2020-08-03 01:35 | PC.NURSE ---
One SL nitro given. Patient's blood pressure is 93/62. Patient states that he feels better. Will monitor.
[2020-08-03 04:25] LABS: Basophils % 0.3 %; Eosinophils % 0.2 %; Hematocrit 39.5 % (42.0-52.0); Hemoglobin 13.2 g/dL (11.7-16.6); Lymphocytes # 1.3 10^3/uL (0.8-4.8); Lymphocytes % 11.3 %; Mean Corpuscular HGB Conc 33.4 g/dL (30.0-36.0); Mean Corpuscular Hemoglobin 28.3 pg (28.0-34.0); Mean Corpuscular Volume 84.6 fL (80-94); Mean Platelet Volume 10.9 fL (7.4-10.4); Monocytes # 1.1 10^3/uL (0.2-0.9); Monocytes % 9.7 %; Neutrophils # 8.96 10^3/uL (1.8-7.7); Neutrophils % 78.2 %; Nucleated Red Blood Cells % 0 %; Platelet Count 161 10^3/cmm (130-400); Red Blood Count 4.67 10^6/uL (4.1-5.3); Red Cell Distribution Width 12.7 % (12.1-15.1); White Blood Count 11.5 10^3/uL (4.0-10.0)
[2020-08-03 04:44] LABS: Alanine Aminotransferase 35 U/L (0-41); Albumin Level 2.9 g/dL (3.5-5.2); Alkaline Phosphatase 56 IU/L (40-130); Anion Gap 15.4 (5-19); Aspartate Amino Transferase 48 U/L (0-40); Blood Urea Nitrogen 31 mg/dL (8-23); Calcium 8.5 mg/dL (8.5-10.5); Carbon Dioxide 22 mmol/L (22-29); Chloride 99 mmol/L (98-107); Globulin 3.3 g/dL (1.3-4.6); Glucose 186 mg/dL (65-115); Osmolality Calculated 287 mOsm/kg (285-295); Potassium 3.4 mmol/L (3.5-5.1); Sodium 133 mmol/L (136-145); Total Protein 6.2 g/dL (6.6-8.7)
--- NOTE | 2020-08-03 06:00 | USCV_ITS ---
Ze Waite Age: 74 Gender: M : 1945 Exam Date: 08/03/2020 05:18 Ordering Phys: Betito Jolly M.D ([email or web address]) Technologist: Pamela Martinez [place] [facility] [place]ication: POST MA BP: 95 / 65 HR: 111 Rhythm: Sinus Technical Quality: Adequate MEASUREMENTS (Male / Female) Normal Values 2D ECHO LV Diastolic Diameter PLAX 4.5 cm 4.2 - 5.9 / 3.9 - 5.3 cm LV Systolic Diameter PLAX 3.5 cm LV Chamber Size 4.3 cm IVS Diastolic Thickness 1.2 cm 0.6 - 1.0 / 0.6 - 0.9 cm IVS Systolic Thickness 1.7 cm LVPW Diastolic Thickness 1.1 cm 0.6 - 1.0 / 0.6 - 0.9 cm LVPW Systolic Thickness 1.3 cm RV Chamber Size 3.2 cm LVOT Diameter 2.0 cm LV Ejection Fraction 2D Teich 43.2 % LV Ejection Fraction MOD 2C 31.9 % LV Ejection Fraction 2C AL 32.6 % LA Diameter 3.1 cm LA Width 3.3 cm LA Height 3.3 cm RA Width 4.0 cm RA Height 3.6 cm Aorta at Sinotubular Diameter 2.5 cm M-MODE LV Diastolic Diameter MM 5.9 cm 4.2 - 5.9 / 3.9 - 5.3 cm LV Systolic Diameter MM 4.5 cm LV Ejection Fraction MM Teich 45.1 % IVS Diastolic Thickness MM 0.7 cm 0.6 - 1.0 / 0.6 - 0.9 cm IVS Systolic Thickness MM 1.7 cm LVPW Diastolic Thickness MM 1.1 cm 0.6 - 1.0 / 0.6 - 0.9 cm LVPW Systolic Thickness MM 1.1 cm RV Diastolic Diameter MM 1.9 cm Aortic Annulus Diameter 3.0 cm LA Ao Ratio MM 1.0 MV E Point Septal Separation 0.4 cm DOPPLER AV Peak Velocity 113.5 cm/s LVOT Peak Velocity 63.0 cm/s AV Area Cont Eq vti 1.7 cm squared AV Area Cont Eq pk 1.8 cm squared MV Area PHT 5.0 cm squared Mitral E to A Ratio 1.2 MV E' Velocity 62.0 cm/s Mitral E to MV E' Ratio 8.5 Mitral E to LV E' Lateral Ratio 7.6 Mitral E to LV E' Septal Ratio 9.8 TR Peak Velocity 373.7 cm/s TR Peak Gradient 55.9 mmHg TR Mean Velocity 252.3 cm/s TR Mean Gradient 30.3 mmHg TR Velocity Time Integral 104.2 cm TV Peak E Velocity 49.0 cm/s Right Atrial Pressure 3.0 mmHg Pulmonary Artery Systolic Pressu 58.9 mmHg PV Peak Velocity 44.0 cm/s RV Acceleration Time 0.1 s RV Ejection Time 0.3 s RV AcT/ET 0.4 FINDINGS Left Ventricle Normal left ventricular size. LV systolic function is severely reduced with EF of 30-35%. Severe hypokinesis of the inferior, anterolateral and inferolateral bailon. Diastolic function can not be assessed because of atrial fibrillation Right Ventricle The right ventricle is normal in size. RV function is moderate to severely reduced Right Atrium The right atrium is normal in size. Left Atrium The left atrium is normal in size. Mitral Valve Structurally normal mitral valve without significant stenosis or prolapse. There is atleast moderate eccentric mitral regurgitation. Aortic Valve Aortic valve is thickened without significant sclerosis or stenosis. There is mild aortic regurgitation. Tricuspid Valve Structurally normal tricuspid valve without significant stenosis. Moderate tricuspid regurgitation. RVSP is >60mmHg. Severe pulmonary hypertension Pulmonic Valve Structurally normal pulmonic valve without significant stenosis. There is no pulmonic regurgitation. Pericardium Normal pericardium without effusion. Aorta Normal ascending aorta dimension. CONCLUSIONS LV systolic function is severely reduced with EF of 30-35%. Above mentioned regional wall motion abnormalities RV function is moderate to severely reduced Diastolic function is indeterminate Atleast moderate eccentric mitral regurgitation Moderate tricuspid regurgitation Severe pulmonary hypertension is seen No comparison studies are available Betito Jolly MD (Electronically Signed) Final Date: 04 August 2020 09:15 S
[2020-08-03 06:51] LABS: Glucose Point of Care 228 mg/dL (70-110)
--- NOTE | 2020-08-03 07:40 | PC.NURSE ---
Bedside report given to Lizzette DENNISON this am. Patient alert and oriented. No further episodes of chest pressure. Patient BP still a little soft but staying in the 90-100's systolic with a map in the 70's. Patient groin site clean dry and intact dressing with minimal tenderness noted. No s/s of hematoma. Patient pleasant and cooperative. Lovenox on hold per Dr. Jolly due to hypotensive episode last night requiring administration of 250 mL bolus of NS. Patient to undergo another L heart cath on Monday after records can be obtained from CABG in [place] back in 2007. Will continue to monitor and assist as needed following CPOC. Education provided to patient questions sought and answered.
[2020-08-03] MEDS: clopidogrel 75 mg Tablet PO (08:20)
[2020-08-03] MEDS: aspirin 81 mg EC Tablet PO (08:21)
--- NOTE | 2020-08-03 09:34 | ECG_ITS ---
[facility] Test Date: 2020-08-03 Pat Name: Ze Waite Department: Room: 112 Gender: Male Division Superintendent: : 1945 Requested By: Betito Jolly Order Number: [id number] Eboni MD: Tate Iglesias M.D. Measurements Intervals [place] Rate: 95 P: 52 [place]: 159 QRS: -84 QRSD: 138 T: 10 QT: 377 QTc: 476 Interpretive Statements SINUS RHYTHM WITH OCCASIONAL SUPRAVENTRICULAR PREMATURE COMPLEXES RIGHT BUNDLE BRANCH BLOCK [120+ ms QRS DURATION, UPRIGHT V1, 40+ ms S IN I/aVL/V4/V5/V6] INFERIOR MYOCARDIAL INFARCTION [40+ ms Q WAVE AND/OR ST/T ABNORMALITY IN II/aVF], PROBABLY OLD MARKED ST DEPRESSION, CONSIDER SUBENDOCARDIAL INJURY [0.2+ mV ST DEPRESSION] Compared to ECG 08/03/2020 01:22:02 No significant changes Electronically Signed On 08-04-2020 0:07:28 CDT by Tate Iglesias M.D. [id number]
--- NOTE | 2020-08-03 09:44 | PC.CHAP ---
Pastoral Care Encounter/Spiritual Assessment Type of Contact [] Declined gel coat sprayer visit [] Patient/Family/Request visit [] Outpatient visit [] Follow-up visit [] Physician referral [] Code/Alert [x] Routine visit [] Staff referral [] Actively dying [] Patient sleeping [] Family support [] [] Out of room [] Palliative care [] [] Receiving care in room [] Pre-surgical visit [] Trauma [] Long length of stay [] ICU visit [] Other: Relational/Emotional Strength [] Patient feels connected with others/family/visitors/staff [] Distress [] Loneliness/isolation [] Abandonment Spirituality of Patient [x] Person of Stacie [] Attends Protestant of their Stacie [] Believes in Prayer [] Reads Bible or Gnosticist materials [] There are Spiritual issues to be addressed Manufacturers Service Representative Interventions [x] Prayer [x] Active listening [x] Non-anxious presence [x] Spiritual/emotional support [] Crisis/trauma care [] Spiritual counseling [] Bereavement support [] Provided bereavement packet [] Provided Bible/devotional materials [] Provided toy/stuffed animal, coloring book to patient or family member [] Provided Communion [] Anointing/[place] [] Salvation [x] Completed spiritual assessment [] Other: Impact on Illness or Injury [] Angry [] Fearful [] Anxious [] Often cries [] Exhaustion [] Unable to work [] Unable to attend buddhist [] Unable to walk/stand [] Unable to read [] Unable to drive [] Unable to eat/drink [] Unable to sleep [] Unable to be with family [] Patient intubated [] Other: Summary patient scheduled for heart surgery today/tomorrow... has had prior surgeries, but this one is not as aggressive, but still has concern.. offered 24 availability for prayer and discussion Time spent with patient 20 min
[2020-08-03] MEDS: FUROsemide 10 mg/mL SDV 2mL 20 MG IVP (10:29)
[2020-08-03] MEDS: enoxaparin 100 mg/mL Syringe 70 MG SUBCUT ×2 (10:31→23:58)
--- NOTE | 2020-08-03 11:06 | PM.PN ---
Subjective Subjective: Interval history: Interval history: No overnight events patient is chest pain-free, he is not getting Lasix, patient is feeling nauseous and not able to eat much despite that his sugars are consistently above 200 I have increased his Lantus to 15 units escalated his sliding scale with high dose I am also giving 500 mL bolus of normal saline No signs of ketoacidosis will check serum ketone We will give 20 units of NovoLog this morning Vitals/I&O/Wt Last Vital Signs Temp 98.3 F 08/03/20 08:24 Pulse 104 H 08/03/20 09:50 Resp 23 H 08/03/20 08:24 BP 101/68 08/03/20 09:50 Pulse Ox 93 08/03/20 08:24 08/02/20 08/03/20 08/03/20 22:59 06:59 14:59 Intake Total 360 / 360 520 / 880 240 / 240 Output Total 800 / 800 200 / 200 Balance -440 / -440 520 / 80 40 / 40 Weight last 48 hrs Weight 68.946 kg Physical Exam Narrative: EXAM NARRATIVE: Patient was laying comfortably in his bed no active complaints S1, S2 no signs of heart failure clinically does not look fluid overloaded Awake alert oriented x3 GCS 15 No acute respite distress No abdominal pain No hematoma or bleeding at cardiac cath site, right femoral EOMI, PERRLA No neurological deficit No joint swelling No skin cellulitis Pleasant appropriate mood and affect Data : 08/03/20 04:15 08/03/20 04:15 Micro: Microbiology 08/02/20 12:36 Urine Culture - Preliminary Urine,Clean Catch Gram Negative Rods A&P Assessment and plan (1) Type 2 diabetes mellitus: Status: Acute (2) Hypertension: Status: Acute (3) STEMI (ST elevation myocardial infarction): Status: Acute Additional A&P Information Poorly controlled type 2 diabetes Persistently high blood sugar I have escalated his sliding scale to high dose and increase Lantus to 15 units today Right now I will give him 500 mL bolus along 20 units of NovoLog check serum ketones Diuretics on hold Hemoglobin A1c 9.3 will need long-term Lantus along Metformin at the time of discharge, consider endocrinology consult outpatient after discharge as well STEMI: Plan for staged intervention, plan as per cardiology Hypokalemia: We will replete potassium Sodium 133, corrected sodium normal Consistent carb diet Full code DVT prophylaxis Lovenox Attestations Medical Necessity Statement*: As per cardiology Time Spent in Patient Care: 25mins Coding Level of Care Code Acute Structures Mechanic for g Fwd Diagnoses Type 2 diabetes mellitus E11.9 Hypertension I10 STEMI (ST elevation myocardial infarction) I21.3
[2020-08-03 11:23] LABS: Ketone (Acetest) Serum Negative (Negative)
[2020-08-03 11:28] LABS: Glucose Point of Care 215 mg/dL (70-110)
[2020-08-03] MEDS: sodium chloride 0.9% 500 ML IV (11:37)
[2020-08-03] MEDS: potassium chloride ER 20 mEq Tablet 40 MEQ PO (11:40)
--- NOTE | 2020-08-03 12:29 | PC.NURSE ---
Dr. Jolly notified patient HR 120-140s a fib c rvr, BP 116/62. Patient asymptomatic. Denies any chest pain or SOB. Telephone order received for IV Amiodarone. See IV flowsheet.
--- NOTE | 2020-08-03 12:34 | ECG_ITS ---
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 Measurements Intervals [place] Rate: 124 P: AR: QRS: 206 QRSD: 135 T: 1 QT: 312 QTc: 449 Interpretive Statements ATRIAL FIBRILLATION WITH RAPID VENTRICULAR RESPONSE MARKED RIGHT AXIS DEVIATION [QRS AXIS > 100] RIGHT BUNDLE BRANCH BLOCK [120+ ms QRS DURATION, UPRIGHT V1, 40+ ms S IN I/aVL/V4/V5/V6] ST DEPRESSION, CONSIDER SUBENDOCARDIAL INJURY [0.1+ mV ST DEPRESSION] Compared to ECG 08/03/2020 10:26:27 Right-axis deviation now present Sinus rhythm no longer present Myocardial infarct finding no longer present ST (T wave) deviation still present Electronically Signed On 08-03-2020 23:58:23 CDT by Tate Iglesias M.D. [id number]
--- NOTE | 2020-08-03 14:15 | PC.NURSE ---
Patient reports chest pressure to medial chest with shortness of breath. Patient rates pain at 3/10. Dr. Jolly notified. Telephone order to administer 1 nitro SL. If chest pain does not resolve with one tablet, call provider for further orders. RBTO. Orders implemented. Chest pain reassessed after 5 minutes. Patient denies chest pain at this time. Nurse to continue to monitor.
[2020-08-03 16:49] LABS: Glucose Point of Care 254 mg/dL (70-110)
--- NOTE | 2020-08-03 20:17 | P.PN_ITS ---
Subjective Subjective: Interval history: Patient is doing well. He had chest pain episodes overnight relieved with nitros. Has some pleuritic pain as well. He has developed atrial fibrialltion with RVR. He had fever overnight. Started by medicine team on antibiotics Vitals/I&O/Wt Last Vital Signs Temp 100.5 F H 08/03/20 16:43 Pulse 103 H 08/03/20 19:00 Resp 30 H 08/03/20 19:00 BP 109/64 08/03/20 19:00 Pulse Ox 95 08/03/20 15:57 08/03/20 08/03/20 08/03/20 06:59 14:59 22:59 Intake Total 520 / 880 963 / 963 207 / 1170 Output Total 200 / 200 625 / 825 Balance 520 / 80 763 / 763 -418 / 345 Weight last 48 hrs Weight 152 lb Physical Exam Narrative: EXAM NARRATIVE: Alert and oriented x 3 Tachycardic, irregularly irregular,S1, S2, has grade 3/6 systolic murmur No acute respiratory distress, clear to auscultation bilaterally Abdomen is soft nontender EOMI, PERRLA No neurological deficit No lower extremity edema Appropriate mood and affect Data : 08/03/20 04:15 08/03/20 04:15 Micro: Microbiology 08/02/20 12:36 Urine Culture - Preliminary Urine,Clean Catch Gram Negative Rods A&P Assessment and plan (1) NSTEMI (non-ST elevated myocardial infarction): Status: Acute (2) Type 2 diabetes mellitus: Status: Acute (3) Hypertension: Status: Acute (4) UTI (urinary tract infection): Status: Acute Patient has presented late with acute SC evidenced by significantly elevated troponin that trended down and spontaneous chest pain resolution. Coronary angiogram demonstrated, likely culprit was SVG to OM/diagonal that is ostially occluded. SVG to RCA is occluded as well. COBB to LAD is patent. Patient had chest discomfort overnight that resolved with sublingual nitros. Plan on performing PCI of the LCx tomorrow AM NPO past midnight Continue aspirin and Plavix High intensity statin therapy Therapeutic anticoagulation as patient has afib as well. Patient started on amiodarone for afib Continue Lasix 20mg BID Patient has UTI. On antibiotic therapy. We have consulted hospitalist service to help with management of medical issues including antibiotic management and diabetes. Appreciate input ECHO shows severely reduced systolic function with EF of 30-35% Attestations Medical Necessity Statement*: Care expected to cross 2 midnight. Patient presented late post SC with occluded SVG graft. Plan for staged PCI of the [place] LCx tomorrow. Coding Level of Care Code Acute Sanitary Landfill Supervisor for Chg Fwd Diagnoses NSTEMI (non-ST elevated myocardial infarction) I21.4 Type 2 diabetes mellitus E11.9 Hypertension I10 UTI (urinary tract infection) N39.0
[2020-08-03 20:43] LABS: Basophils % 0.3 %; Eosinophils % 0.3 %; Hematocrit 41.4 % (42.0-52.0); Lymphocytes # 1.2 10^3/uL (0.8-4.8); Mean Corpuscular HGB Conc 33.8 g/dL (30.0-36.0); Mean Corpuscular Hemoglobin 28.9 pg (28.0-34.0); Mean Corpuscular Volume 85.4 fL (80-94); Monocytes # 0.9 10^3/uL (0.2-0.9); Monocytes % 9.1 %; Neutrophils # 7.75 10^3/uL (1.8-7.7); Neutrophils % 77.9 %; Nucleated Red Blood Cells % 0 %; Platelet Count 180 10^3/cmm (130-400); Red Blood Count 4.85 10^6/uL (4.1-5.3); Red Cell Distribution Width 12.7 % (12.1-15.1)
[2020-08-03 20:53] LABS: Glucose Point of Care 232 mg/dL (70-110)
[2020-08-03 20:59] LABS: Anion Gap 15.6 (5-19); Blood Urea Nitrogen 32 mg/dL (8-23); Calcium 8.7 mg/dL (8.5-10.5); Carbon Dioxide 21 mmol/L (22-29); Chloride 98 mmol/L (98-107); Glucose 220 mg/dL (65-115); Osmolality Calculated 286 mOsm/kg (285-295); Potassium 3.6 mmol/L (3.5-5.1); Sodium 131 mmol/L (136-145)
[2020-08-03] MEDS: insulin glargine 100 units/1 mL 15 UNIT SUBCUT (21:29)
[2020-08-03] MEDS: levofloxacin-dextrose 5 % 750 MG/150 ML PREMIX 100 MG IV (21:29)
[2020-08-03] MEDS: atorvastatin 40 mg Tablet PO (21:29)
--- NOTE | 2020-08-03 23:40 | PC.NURSE ---
Spoke to Dr. Michel auto tester carton maker regarding this patient's lovenox order this evening prior to his scheduled cathode maker procedure in the AM. Order given and verified with readback to give the medication as scheduled.
[2020-08-04] VITALS (64 sets, daily range): BP systolic 72–117; BP diastolic 46–78; PULSE 85–175; RESP 8–40; TEMP 36.6–37.1; O2SAT 90–97
--- NOTE | 2020-08-04 | XR_ITS ---
WS: [id number] XR chest 2V* [id number] REASON FOR EXAM: Shortness of breath FINDINGS: Compared to the previous examination of 08/02/2020 there appears to be increase in the patchy and inte rstitial infiltrative changes in the right mid and upper lung field. Also, there appears to be more p leural fluid on the right. No other interval change or new finding noted. XR/XR chest 2V* [id number] IMPRESSION: Interval change in the chest x-ray as above.
[2020-08-04] MEDS: temazepam 15 mg Capsule PO (02:11)
[2020-08-04] MEDS: diphenhydrAMINE 50 mg Capsule PO (05:11)
[2020-08-04] MEDS: sodium chloride 0.9% 1,000 ML 50 ML IV ×2 (05:11→23:31)
[2020-08-04 05:20] LABS: Blood Urea Nitrogen 27 mg/dL (8-23); Calcium 8.7 mg/dL (8.5-10.5); Carbon Dioxide 21 mmol/L (22-29); Chloride 100 mmol/L (98-107); Glucose 142 mg/dL (65-115); Osmolality Calculated 284 mOsm/kg (285-295); Sodium 133 mmol/L (136-145)
[2020-08-04 05:24] LABS: Anion Gap 15.5 (5-19); Potassium 3.5 mmol/L (3.5-5.1)
--- NOTE | 2020-08-04 05:56 | XACV_ITS ---
Exam Room: [facility] Ht: 175 cm Wt: 69 kg BSA: 1.83 m2 Gender: Male : 1945 Any Known Allergies: Penicillins Exam Priority: Routine Procedure(s): Procedure Description: Diagnostic procedure Procedure Description: Left Heart Catheterization Procedure Description: Balloon angioplasty of proximal to distal left circumflex artery Diagnostic Cath Status: Urgent Diagnostic Findings * This was a planned staged procedure for PCI of the LCx. For complete diagnostic angiogram report, please refer to report from 08/02/20. * LM has 60-70% diffuse stenosis. Small sized vesssel. * LAD is occluded in mid vessel. Proximal diagonal artery has severe stenosis. * Diffuse multiple stenosis in the proximal to distal vessel. pCIRC to dCIRC: Severe 90% stenosis, ARIELLA: 3 flow. * Grafts not injected. * Coronary angiography shows right dominance. PCI Status: Urgent PCI Indication: NSTE - ACS Interventional Findings * Procedure detail: Access was obtained in the right femoral artery. We used XB 3.5 guide catheter to engage the left main artery. There was significant dampening of pressures with engagement of the artery. We used a 0.014 run-through guidewire to cross the left circumflex serial lesions and was put in distal OM branch. We used a 2.25 x 15 mm semicompliant balloon to perform balloon angioplasty of proximal to distal left circumflex artery. At this time mild to moderate 30 to 40% residual stenosis was seen. We attempted to place a 2.25 x 22 mm resolute [place] stent. However because of the residual stenosis stent could not be advanced. At this time, patient started developing pulmonary edema and started desaturating. Patient was given IV lasix and procedure aborted as patient was at elevated risk of intubation. . Conclusions 1. Severe coronary artery disease of left main/proximal first diagonal artery and proximal to distal Lcx. 2. Successful balloon angioplasty of proximal to distal LCx. Stent could not be advanced. 3. Stenting of left circumflex and left main artery aborted secondary to patient developing pulmonary edema and risk of intubation. Recommendations * Patient will need Impella assisted PCI of left main artery, left circumflex artery and first diagonal artery as he did not tolerate the procedure without LV support. If he continues having ischemic symptoms after today's balloon angioplasty, we will plan on Impella assisted PCI in 1 to 2 days. * Transfer back to CSU. * Continue aspirin and Plavix for atleast 1 year. * High intensity statin therapy. Interventional RX Recommendation: PCI w/o planned CABG Diagnostic RX Recommendation: PCI w/o planned CABG Anticoagulation: Heparin Pressures Phase:Rest AO : 69 / 42 ( 50 ) @ 1:23:00 AM 75 / 56 ( 65 ) @ 1:43:00 AM 81 / 58 ( 69 ) @ 1:56:00 AM 83 / 49 ( 60 ) @ 2:07:00 AM 95 / 56 ( 69 ) @ 2:08:00 AM Clinical Evaluation EBL: 5mL-10mL Procedural Details Pre-Procedure Time Out. Identified patient by full name and date of as verbalized by the patient/guarantor. Does the consent match the physician's order: Yes. Accurate & Complete Informed Consent: Yes. Inpatient/Outpatient History & Physical on Chart: Yes. If H&P is completed, is and addenduem needed: Yes; If yes, is the addendum complete: Yes. Visualize and Verify Site with Patient/Guarantor: N/A. Relevant Radiology Images available: Yes. Pre-op teaching completed and patient verbalized understanding. The risks, benefits, and alternatives of sedation and/or procedure were discussed by physician. The patient agrees to continue. Procedure started. Correct patient, site and procedure confirmed by cath team. PERRLA. Strong, equal hand floral manager bilaterally. Lungs clear x 5 lobes. IV Site on Arrival: 20 gauge in the right anticubital. IV Site on Arrival: 20 gauge in the left anticubital. Cardiovascular Instability: No. IV Fluids: 0.9% NaCl at KVO. 0 mL infused prior to floating labor gang supervisor. Oxygen started at 2liters/min via nasal canula. right groin was prepped with chloroprep then draped in the usual sterile fashion. Physician notified. Baseline sample Acquired. HR: 103 BPM. Equipment: 6F - Femoral. Cardiac Cath Pack. ACIST Manifold Kit Model BT 2000. Heparinized Saline (2 units/mL), 1000 mL bag. Kit, Micropuncture. Physician arrived. Inventory is CRD 6 FR XB 3.5 GUIDE. Physician scrubbed in. Immediate Pre-Procedure Time Out. Correct Patient: Yes; Correct Procedure: Yes; Correct Site: Yes; Correct Patient Position: Yes; Correct Supplies: Yes; Dried Flammable Prep: Yes; Blood Products Available: N/A;. Lidocaine 1% infiltrated to the right groin. Arterial access obtained with micropuncture set. 6 stateless XB 3.5 guide catheter was inserted over the wire. Runthrough guidewire was advanced through the guide catheter to lesion in the mid Circ. nc increased to 4 lpm. no anticolagulation needed at this time. lovnox given about six hours ago. Balloon inserted to lesion in the mid Circ. Inflation number : 1 A AB TREK 2.25X15 RX BALLOON was prepped and advanced across the Mid CX , then inflated to 8 LIMA for 0:15 seconds. Inflation number: 2 The AB TREK 2.25X15 RX BALLOON was reinflated across the Mid CX, to 8 LIMA for 0:21 seconds. Inflation number: 3 The AB TREK 2.25X15 RX BALLOON was reinflated across the Mid CX, to 10 LIMA for 0:15 seconds. Balloon out. Inventory is TR 180cm Runthrough NS extra floppy 0.014 wire. Inventory is TR 180cm Runthrough NS extra floppy 0.014 wire. Runthrough guidewire was advanced through the guide catheter to lesion in the OM. RENEE Duran Jese was relieved by Erendira Luis RRT as monitoring person. Runthrough wire out. Solder Making Laborer 50 Wire inserted. [facility] Clinical Fraility Score: 3: Managing Well. Foam Molder Indications: ACS > 24 hours. Chest Pain Symptom Assessment: Typical Angina Symptoms. Solder Making Laborer wire out. MDT R MARGOT 2.25x22 MONIQUE inserted over wire. Unable to cross lesion in Mid CX. Intact stent removed. Saline bolus stopped at this time. 168 ml infused. Wire out. Guide catheter out. Called ultrasound to come for STAT ECHO. Lilliam from ultrasound arrived to perform stat ECHO. Groin picture taken. A Suture was successful obtaining hemostatsis at the Right Femoral artery insertion site. Sheath(s) sutured into position with 2-0 silk and sterile 4x4's and Op-site applied over the site. No oozing or signs and symptoms of hematoma noted. Arterial sheath flushed and connected to tranducer and pressure bag with heparinized saline. Post Procedure: Pulses reassessed and unchanged. PERRLA. Strong, equal hand floral manager bilaterally. No VTE prophylaxis required. Medication's Wasted: Nitro = 49.8 mg. Medication's Wasted: Heparin = 4000 units. Medication's Wasted: Other = lasix 60 mg. Total IV fluids: 400 mL. Contrast type used: Omnipaque 300 mgI/mL, 500 mL bottle. Complications: none. Post-op diagnosis: severe multivessel CAD. Estimated blood loss: 5mL-10mL. Procedure completed. Patient transferred by bed to 1st floor. Access Site Site: Right Femoral artery Sheath Size: 6 Fr Hemostasis Method: Suture Hemostasis Success: Successful Procedure Medications Start: 6:02 AM Stop: 6:02 AM Medication: Amiodarone (Cordarone) Amount: 0.5 mg/hr Start: 6:02 AM Stop: 6:02 AM Medication: 0.9% Saline Amount: 50 ml/hr Route: I.V. drip Start: 6:10 AM Stop: 6:10 AM Medication: Versed Amount: 1 mg Route: I.V. Start: 6:10 AM Stop: 6:10 AM Medication: Fentanyl Amount: 50 mcg Route: I.V. Start: 6:19 AM Stop: 6:19 AM Medication: Fentanyl Amount: 50 mcg Route: I.V. Start: 6:19 AM Stop: 6:19 AM Medication: Versed Amount: 1 mg Route: I.V. Start: 6:36 AM Stop: 6:36 AM Medication: 0.9% Saline Amount: 250 ml Route: I.V. bolus Start: 6:53 AM Stop: 6:53 AM Medication: 0.9% Saline Amount: 250 ml Route: I.V. bolus Start: 7:08 AM Stop: 7:08 AM Medication: Lasix (furosemide) Amount: 40 mg Route: I.V. I, the attending physician, have reviewed and verified all procedure medications. Yes, all medications given per verbal order History/Risk Factors Hypertension: Yes Dyslipidemia: No Peripheral Arterial Disease (PAD): No Myocardial Infarction (PA): Yes Obesity: No Renal Disease: No Tobacco Use: Former Prior Interventions PCI: Yes CABG: Yes Valve Surgery: No Report Signatures Finalized by Betito Jolly MD on 08/10/2020 11:03 AM
--- NOTE | 2020-08-04 06:10 | W.PM.OPSUD ---
Surgery/Procedure H&P Update DATE OF PROCEDURE: August 04, 2020 DATE H&P PERFORMED: 08/02/20 H&P UPDATE INFORMATION: I have reviewed H&P completed within last 30 days, I have examined patient prior to procedure and No changes to prior documentation PREOP DIAGNOSIS: NSTEMI PRIMARY INDICATION FOR PROCEDURE: NSTEMI PLANNED PROCEDURE: Operation Date: 08/04/20 06:00 Proposed Procedures p Cardiac Catheterization(Not Applicable) - Betito Jolly M.D Percutaneous coronary intervention PATIENT REASSESSED PRIOR TO SEDATION, WITH NO CHANGE NOTED: Yes PHYSICAL EXAM: alert, oriented x 3 and clear to auscultation bilaterally AIRWAY EVAL/ANESTHESIA PLAN: ASA III, Risks, benefits & alternatives of sedation and/or procedure discussed and Patient agrees to continue as planned
--- NOTE | 2020-08-04 07:08 | USCV_ITS ---
RavindraZe Age: 74 Gender: M : 1945 Exam Date: 08/04/2020 07:23 Ordering Phys: Betito Jolly M.D ([email or web address]) Technologist: Lilliam Bailey Exam Location: [facility] – [place] Indication: CHECK FOR Pericardial effusion BP: / HR: Rhythm: Sinus Technical Quality: MEASUREMENTS (Male / Female) Normal Values FINDINGS Left Ventricle Right Ventricle Right Atrium Left Atrium Mitral Valve Aortic Valve Tricuspid Valve Pulmonic Valve Pericardium Aorta CONCLUSIONS Limited echocardiogram performed to assess for pericardial effusion post cardiac catheterization and balloon angioplasty. No evidence of pericardial effusion is seen. Betito Jolly MD (Electronically Signed) Final Date: 07 August 2020 15:54 S
--- NOTE | 2020-08-04 07:40 | PC.NURSE ---
Patient back from sugar laboratory assistant at 0737. 2 nurse verification of insertion site, asymptomatic. Patient educated on activity restrictions, verbalized understanding. Dr. Jolly notified of ST depression on telemetry. Patient denies any chest pain or pressure at this time. Physician to come evaluate patient.
--- NOTE | 2020-08-04 08:00 | PC.NURSE ---
Verbal order from Dr. Jolly to administer Lasix 40 mg once IVP. RBVO.
[2020-08-04] MEDS: ipratropium-albuterol 3 mL Neb INHALATION ×3 (08:38→16:01)
[2020-08-04 08:39] LABS: Glucose Point of Care 214 mg/dL (70-110)
[2020-08-04] MEDS: FUROsemide 10 mg/mL SDV 4mL 40 MG IVP ×2 (08:53→16:34)
--- NOTE | 2020-08-04 09:01 | PC.CHAP ---
Pastoral Care Encounter/Spiritual Assessment Type of Contact [] Declined teen counselor visit [] Patient/Family/Request visit [] Outpatient visit [] Follow-up visit [] Physician referral [] Code/Alert [x] Routine visit [] Staff referral [] Actively dying [] Patient sleeping [x] Family support [] [] Out of room [] Palliative care [] [] Receiving care in room [] Pre-surgical visit [] Trauma [] Long length of stay [] ICU visit [] Other: Relational/Emotional Strength [] Patient feels connected with others/family/visitors/staff [] Distress [] Loneliness/isolation [] Abandonment Spirituality of Patient [] Person of Stacie [] Attends Nondenominational of their Stacie [] Believes in Prayer [] Reads Bible or Confucianism materials [] There are Spiritual issues to be addressed Table Lever Operator Interventions [x] Prayer [x] Active listening [x] Non-anxious presence [x] Spiritual/emotional support [] Crisis/trauma care [] Spiritual counseling [] Bereavement support [] Provided bereavement packet [] Provided Bible/devotional materials [] Provided toy/stuffed animal, coloring book to patient or family member [] Provided Communion [] Anointing/[place] [] Salvation [x] Completed spiritual assessment [] Other: Impact on Illness or Injury [] Angry [] Fearful [] Anxious [] Often cries [] Exhaustion [] Unable to work [] Unable to attend latter day [] Unable to walk/stand [] Unable to read [] Unable to drive [] Unable to eat/drink [] Unable to sleep [] Unable to be with family [] Patient intubated [] Other: Summary patient had surgery 6am today... trying to warm up... very very cold.. going in and out of sleep Time spent with patient 10 min
[2020-08-04 09:04] LABS: Basophils % 0.3 %; Eosinophils # 0.1 10^3/uL (0.0-0.8); Eosinophils % 0.8 %; Hematocrit 44.5 % (42.0-52.0); Hemoglobin 14.1 g/dL (11.7-16.6); Lymphocytes # 1.1 10^3/uL (0.8-4.8); Lymphocytes % 10.2 %; Mean Corpuscular HGB Conc 31.7 g/dL (30.0-36.0); Mean Corpuscular Hemoglobin 28.8 pg (28.0-34.0); Mean Corpuscular Volume 90.8 fL (80-94); Mean Platelet Volume 11.6 fL (7.4-10.4); Monocytes # 0.9 10^3/uL (0.2-0.9); Monocytes % 8.5 %; Neutrophils % 79.8 %; Nucleated Red Blood Cells % 0 %; Platelet Count 179 10^3/cmm (130-400); Red Cell Distribution Width 13.1 % (12.1-15.1); White Blood Count 10.8 10^3/uL (4.0-10.0)
[2020-08-04] MEDS: clopidogrel 75 mg Tablet PO (09:15)
[2020-08-04] MEDS: amiodarone 200 mg Tablet 400 MG PO ×2 (09:15→17:37)
[2020-08-04] MEDS: aspirin 81 mg EC Tablet PO (09:15)
[2020-08-04 09:20] LABS: Calcium 8.6 mg/dL (8.5-10.5)
--- NOTE | 2020-08-04 09:30 | PC.NURSE ---
Telephone order from Dr. Jolly to discontinue Amiodarone gtt at 1300, administer PO Amiodarone now. RBTO.
[2020-08-04 09:31] LABS: Potassium 3.7 mmol/L (3.5-5.1)
[2020-08-04 09:44] LABS: Anion Gap 21.7 (5-19); Blood Urea Nitrogen 27 mg/dL (8-23); Carbon Dioxide 15 mmol/L (22-29); Chloride 96 mmol/L (98-107); Glucose 229 mg/dL (65-115); Osmolality Calculated 280 mOsm/kg (285-295); Sodium 129 mmol/L (136-145)
--- NOTE | 2020-08-04 11:22 | P.PN_ITS ---
Subjective Subjective: Interval history: Patient was seen and examined this morning, he went for an angiogram today During the procedure when left main was accessed his blood pressure dropped and with only 250 cc of fluid he developed pulm edema he has EF of 30-35% procedure was aborted however left main balloon angioplasty done. On amiodarone for A. fib RVR When I saw him patient was complaining of orthopnea no fever he is complaining of difficulty taking a deep breath however no active chest pain Vitals/I&O/Wt Last Vital Signs Temp 98 F 08/04/20 04:00 Pulse 106 H 08/04/20 08:42 Resp 20 H 08/04/20 08:38 BP 96/69 08/04/20 04:00 Pulse Ox 94 08/04/20 08:38 08/03/20 08/04/20 08/04/20 22:59 06:59 14:59 Intake Total 207 / 1170 150 / 1320 120 / 120 Output Total 850 / 1050 1900 / 1900 Balance -643 / 120 150 / 270 -1780 / -1780 Weight last 48 hrs Weight 68.946 kg Physical Exam Narrative: EXAM NARRATIVE: Patient was complaining of orthopnea S1, S2 variable Clinically does not look fluid overloaded however mild tachypnea with crackles at the bases Abdomen soft Lower extremity no edema gangrene ulcer No neurological deficits Right femoral sheath without any hematoma or bleeding Data : 08/04/20 08:50 08/04/20 08:50 Micro: Microbiology 08/02/20 12:36 Urine Culture - Final Urine,Clean Catch Escherichia coli A&P Assessment and plan (1) Type 2 diabetes mellitus: Status: Acute (2) STEMI (ST elevation myocardial infarction): Status: Acute (3) Afib: Status: Acute (4) Pulmonary edema: Status: Acute Additional A&P Information Type 2 diabetes poorly controlled In total he received 55 units yesterday of insulin Today I will schedule him with 6 units of Humalog premeal with sliding scale and increase his Lantus to 20 units Patient has not been eating much because of nausea as well No signs of DKA no acidosis CSU nurse updated Primary edema after angiogram today Has EF 30 to 35%, received Lasix in the OR Currently systolic blood pressure soft Not a candidate to receive normal saline for hyperglycemia A. fib RVR On amnio drip No active chest pain Patient heart rate fluctuating between 95-1 07 STEMI: Complicated coronary anatomy Please refer to cardiology note for the details Attestations Medical Necessity Statement*: As per cardiology Time Spent in Patient Care: 30mins Coding Level of Care Code Acute Microbiology Lab Assistant for Terese Fwd Diagnoses Type 2 diabetes mellitus E11.9 STEMI (ST elevation myocardial infarction) I21.3 Afib I48.91 Pulmonary edema J81.1
--- NOTE | 2020-08-04 11:30 | PC.NURSE ---
Sheath pulled at 1108 per protocol. Direct pressure held for 20 minutes until hemostasis achieved. Dressing applied. Patient tolerated well. Patient reeducated on activity restrictions, verbalized understanding. Nurse to continue to monitor.
[2020-08-04 11:39] LABS: Glucose Point of Care 269 mg/dL (70-110)
--- NOTE | 2020-08-04 13:00 | PC.NURSE ---
Telephone order from Dr. Jolly to obtain 2V CXR following completion of bedrest at 1730. RBTO.
[2020-08-04] MEDS: ALPRAZolam 0.25 mg Tablet PO (14:23)
--- NOTE | 2020-08-04 16:35 | PC.NURSE ---
Dr. Jolly at bedside to evaluate patient. Physician gave verbal order for lasix 60 mg TID. Give additional 20 mg lasix now. Give next dose of 60 mg at 2330. RBVO.
[2020-08-04 16:41] LABS: Glucose Point of Care 268 mg/dL (70-110)
[2020-08-04 17:22] LABS: NT Pro B Type Natriuretic Pept 12378 pg/mL (0-125)
[2020-08-04] MEDS: FUROsemide 10 mg/mL SDV 2mL 20 MG IVP (17:33)
[2020-08-04] MEDS: enoxaparin 80 mg/0.8 mL Syringe 70 MG SUBCUT (17:36)
--- NOTE | 2020-08-04 17:45 | PC.NURSE ---
Patient ambulated at 1730. Site reassessed, asymptomatic. Patient tolerated well. Nurse to continue to monitor.
[2020-08-04 18:19] LABS: Troponin T (5th) Once 3373 ng/L (0-15)
--- NOTE | 2020-08-04 18:40 | PC.NURSE ---
Patient noted to be in unsustained SVT on telemetry, HR 170s. Patient assessed, asymptomatic. Denies CP or SOB at this time, see VS flowsheet. Dr. Jolly notified via telephone. No new orders received at this time. Physician to report to bedside.
--- NOTE | 2020-08-04 19:04 | ECG_ITS ---
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 Measurements Intervals [place] Rate: 111 P: 90 LA: 177 QRS: 259 QRSD: 145 T: 45 QT: 385 QTc: 525 Interpretive Statements SINUS TACHYCARDIA WITH FREQUENT SUPRAVENTRICULAR PREMATURE COMPLEXES MARKED RIGHT AXIS DEVIATION [QRS AXIS > 100] RIGHT BUNDLE BRANCH BLOCK [120+ ms QRS DURATION, UPRIGHT V1, 40+ ms S IN I/aVL/V4/V5/V6] ST DEPRESSION, CONSIDER SUBENDOCARDIAL INJURY [0.1+ mV ST DEPRESSION] Compared to ECG 08/03/2020 12:38:47 Atrial fibrillation no longer present ST (T wave) deviation still present Electronically Signed On 08-05-2020 7:30:07 CDT by Kiarra Michel M.D. [id number]
[2020-08-04] MEDS: nitroglycerin 0.4 mg sublingual Tablet SUBLINGUAL (19:06)
[2020-08-04] MEDS: digoxin 250 mcg/ml INJ 2 mL 500 MCG IVP (19:14)
--- NOTE | 2020-08-04 19:30 | PC.NURSE ---
Dr. Jolly at bedside. 12 lead obtained. Orders received, See MAR for medication administration. Verbal order to transfer patient to ICU. Report called to ICU nurse. Patient transported on medical operations supervisor, no events.
--- NOTE | 2020-08-04 19:40 | PC.NURSE ---
Arrived during shift report it was noted that the patient was going into a supraventricular tachycardia that was unsustained. Dr. Jolly notified by the day shift RN. Dr. Jolly at bedside. Orderers received see JUL. Pt places on fast patches. Request made for ICU bed. Pt packaged and transferred on panel monitor without incident.
[2020-08-04 19:41] LABS: Anion Gap 19.3 (5-19); Blood Urea Nitrogen 28 mg/dL (8-23); Calcium 8.6 mg/dL (8.5-10.5); Carbon Dioxide 20 mmol/L (22-29); Chloride 95 mmol/L (98-107); Glucose 249 mg/dL (65-115); Osmolality Calculated 286 mOsm/kg (285-295); Potassium 3.3 mmol/L (3.5-5.1); Sodium 131 mmol/L (136-145)
[2020-08-04 19:42] LABS: Magnesium 1.7 mg/dL (1.7-2.3); Phosphorus 2.4 mg/dL (2.5-4.5)
[2020-08-04] MEDS: midazolam 1 mg/mL INJ 2 mL 2 MG IVP (19:43)
--- NOTE | 2020-08-04 19:50 | PC.NURSE ---
Lidocaine gtt hung from crash cart, unable to order accordingly. Verbal order received via Dr. Moyer. Patient started on Lidocaine gtt at 1.5 mg/hr
[2020-08-04] MEDS: magnesium sulfate premix 2 GM/50 ML PIGGYBACK IV (20:07)
[2020-08-04] MEDS: fentaNYL 50 mcg/mL INJ 2mL 100 MCG (20:08)
[2020-08-04] MEDS: midazolam 1 mg/mL INJ 2 mL IVP (20:09)
[2020-08-04] MEDS: midazolam 1 mg/mL INJ 2 mL 2 MG (20:10)
--- NOTE | 2020-08-04 20:11 | ECG_ITS ---
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 Measurements Intervals [place] Rate: 98 P: 92 ND: 188 QRS: 246 QRSD: 152 T: 24 QT: 360 QTc: 462 Interpretive Statements SINUS RHYTHM WITH OCCASIONAL SUPRAVENTRICULAR PREMATURE COMPLEXES MARKED RIGHT AXIS DEVIATION [QRS AXIS > 100] RIGHT BUNDLE BRANCH BLOCK [120+ ms QRS DURATION, UPRIGHT V1, 40+ ms S IN I/aVL/V4/V5/V6] Compared to ECG 08/04/2020 19:06:46 Sinus tachycardia no longer present ST (T wave) deviation no longer present Electronically Signed On 08-05-2020 7:28:15 CDT by Kiarra Michel M.D. [id number]
--- NOTE | 2020-08-04 20:15 | PC.NURSE ---
Patient transferred from [facility], Dr. Moyer and Dr. Jolly at bedside. Patient cardioverted x2. 1940 - 25 mcg Fentanyl 1943 - 2 mg Versed 1944 - 25 mcg Fentanyl 1946 - 200J Cardioversion 1947 - 150 mg AMiodarone Bolus 1950 - Lidocaine gtt 1.5 mg/min 1951 - 70 mg Lidocaine Bolus 2007 - 2 gm Mg rider 2009 - 1 mg Versed 2009 - 25 mcg Fentanyl 2011 - 200 J Cardioversion
--- NOTE | 2020-08-04 22:01 | PM.PN ---
Subjective Subjective: Interval history: Patient underwent attempt for PCI of LCx/left main artery. Patient became unstable with engagement of guide catheter. Patient's pressure dampened. We were able to perform balloon angioplasty of the LCx that improved flow significantly. However patient developed pulmonary edema and could not stay still. We decided to stop procedure there and stabilize patient with diuresis and rate control. Patient was sent back to CSU. In the PM, patient became tachycardia with wide complex tachycardia likely secondary to VT. Patient did not lose pulse or became unconscious. He became hypotensive with significant chest pain. He was cardioverted x 2 with successful return to normal sinus rhythm. Patient was started on Lidocaine gtt and amiodarone gtt Vitals/I&O/Wt Last Vital Signs Temp 98.2 F 08/04/20 15:54 Pulse 175 H 08/04/20 19:25 Resp 8 L 08/04/20 20:08 BP 96/74 08/04/20 19:35 Pulse Ox 95 08/04/20 20:08 08/04/20 08/04/20 08/04/20 06:59 14:59 22:59 Intake Total 150 / 1320 551 / 551 120 / 671 Output Total 2275 / 2275 450 / 2725 Balance 150 / 270 -1724 / -1724 -330 / -2054 Physical Exam Narrative: EXAM NARRATIVE: Alert and oriented x 3 Tachycardic, irregularly irregular,S1, S2, has grade 3/6 systolic murmur No acute respiratory distress, significant crackles bilaterally Abdomen is soft nontender EOMI, PERRLA No neurological deficit No lower extremity edema Appropriate mood and affect Data : 08/04/20 08:50 08/04/20 19:17 Micro: Microbiology 08/02/20 12:36 Urine Culture - Final Urine,Clean Catch Escherichia coli A&P Assessment and plan (1) NSTEMI (non-ST elevated myocardial infarction): Status: Acute (2) Type 2 diabetes mellitus: Status: Acute (3) Hypertension: Status: Acute (4) UTI (urinary tract infection): Status: Acute (5) Ventricular tachycardia: Status: Acute (6) Atrial fibrillation with RVR: Status: Acute Patient presented late with acute NC evidenced by significantly elevated troponin that trended down and spontaneous temporary chest pain resolution. Coronary angiogram demonstrated, likely culprit was SVG to OM/diagonal that is ostially occluded. SVG to RCA is occluded as well. COBB to LAD is patent. Patient underwent attempt for PCI of LCx/left main artery. Patient became unstable with engagement of guide catheter. Patient's pressure dampened. We were able to perform balloon angioplasty of the LCx that improved flow significantly in LCx(left main not ballooned). However patient developed pulmonary edema and could not stay still. He also went in afib with RVR. We decided to stop procedure there and stabilize patient with diuresis and rate control. Patient was sent back to CSU. In the PM, patient became tachycardia with wide complex tachycardia secondary to VT. Patient did not lose pulse or became unconscious. He became hypotensive with significant chest pain. He was cardioverted x 2 with successful return to normal sinus rhythm. Patient was started on Lidocaine gtt and amiodarone gtt Patient is unstable now with recurrent VT, chest pain and pulmonary edema. Given his severely reduced LV systolic function, marked dampening of pressures with left main engagement, ischemic myocardium other than COBB/LAD territory, patient is planned to undergo impella supported high risk PCI of left main to LCx and diagonal artery in the AM. EKG is showing marked ST depressions. NPO past midnight Continue aspirin and Plavix High intensity statin therapy Therapeutic anticoagulation with lovenox for now Continue lidocaine and amiodarone gtt Continue Lasix Patient has UTI. On antibiotic therapy. We have consulted hospitalist service to help with management of medical issues including antibiotic management and diabetes. Appreciate input ECHO shows severely reduced systolic function with EF of 30-35% Attestations Medical Necessity Statement*: Care expected to cross 2 midnights. Patient underwent balloon angioplasty of LCx today but procedure had to be stopped as patient developed pulmonary edema, tachycardia and was hemodynamically unstable. Had cardioversion x 2 today for VT. 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
[2020-08-04] MEDS: levofloxacin-dextrose 5 % 750 MG/150 ML PREMIX 100 MG IV (22:33)
[2020-08-04] MEDS: atorvastatin 40 mg Tablet PO (22:33)
[2020-08-04] MEDS: potassium chloride premix 100 ML 25 MEQ IV (22:34)
--- NOTE | 2020-08-04 22:50 | PM.MISC ---
Miscellaneous Note Purpose of Documentation: Cardioversion Note: Called as patient had wide complex tachycardia with heart rates in 170s and patient becoming hypotensive. We urgently moved patient to ICU. Patient was sedated with Versed and and performed Cardioversion with 200J energy x2. Patient was successfully cardioverted to NSR. Patient hemodynamically has improved. Patient resting comfortably.Continue amio and lidocaine gtt
--- NOTE | 2020-08-04 23:04 | XR_ITS ---
WS: [id number] XR chest 1V portable [id number] REASON FOR EXAM: confirmation of edema status FINDINGS: The multiple apparatuses overlying the lower chest degrade the diagnostic quality of the examination. There is cardiomegaly and central vascular congestion. Interstitial and patchy infiltrates are seen i n the central and upper right lung. These findings appear more prominent than on the previous examina tion but this may be in part due to the artifact from the overlying devices. No other interval change or new finding. There is fluid in the major and minor fissures in the right lung. XR/XR chest 1V portable [id number] IMPRESSION: No improvement in the vascular congestion and presumed edema as above.
[2020-08-04] MEDS: metoprolol tartrate 25 mg Tablet 12.5 MG PO (23:11)
[2020-08-04] MEDS: sodium chloride 0.9% 500 ML 999 ML IV (23:31)
[2020-08-04] MEDS: insulin glargine 100 units/1 mL 20 UNIT SUBCUT (23:37)
[2020-08-04] MEDS: sodium chloride 0.9% 1,000 ML 100 ML IV (23:54)
[2020-08-05] VITALS (55 sets, daily range): BP systolic 88–127; BP diastolic 63–96; PULSE 64–100; RESP 16–30; TEMP 36.4–36.7; O2SAT 91–97
--- NOTE | 2020-08-05 | XACV_ITS ---
Exam Room: [facility] Ht: 175 cm Wt: 69 kg BSA: 1.83 m2 Gender: Male : 1945 Any Known Allergies: Penicillins Exam Priority: Routine Procedure(s): Procedure Description: Diagnostic procedure Procedure Description: PCI procedure Procedure Description: Drug Eluting Coronary Stent Procedure Description: Miscellaneous Procedure Description: ACT Procedure Description: Impella insertion Diagnostic Cath Status: Urgent Diagnostic Findings * This was a planned intervention of left main/LAD/ Diagonal artery/ LCx. For complete diagnostic angiogram findings, please see report from 08/02/2020. * LM to pLAD: Severe, diffuse 60% stenosis, ARIELLA: 3 flow. * 1st Diag: Severe 90% stenosis, ARIELLA: 3 flow. * Proximal to distal LCx: 90% stenosis. PCI Status: Urgent PCI Indication: NSTE - ACS Interventional Findings * INDICATION:Patient presented with late presentation of STEMI with SVG to OM the culprit lesion. Patient underwent attempt for PCI of LCx/left main artery yesterday. Patient became unstable with engagement of guide catheter. Patient's pressure dampened. We were able to perform balloon angioplasty of the LCx that improved flow significantly in LCx(left main not ballooned). However patient developed pulmonary edema and could not stay still. He also went in afib with RVR. We decided to stop procedure there and stabilize patient with diuresis and rate control. Patient was sent back to [facility]. In the evening, patient became tachycardia with wide complex tachycardia secondary to VT. Patient did not lose pulse or became unconscious. He became hypotensive with significant chest pain. He was cardioverted x 2 with successful return to normal sinus rhythm. Patient was started on Lidocaine gtt and amiodarone gtt.Patient is unstable now with recurrent VT, chest pain and pulmonary edema. Given his severely reduced LV systolic function, marked dampening of pressures with left main engagement, ischemic myocardium other than COBB/LAD territory, patient is planned to undergo impella supported high risk PCI of left main to LCx and diagonal artery. EKG is showing marked ST depressions. . * Proximal Circumflex Coronary Artery to pCIRC: 90% stenosis treated with MDT NC EUPHORA RX 2.32L37EH BALLOON, MDT R MARGOT 2.5X22 MONIQUE, and AB MINI TREK 1.50X6 RX BALLOON. 0% residual stenosis, ARIELLA: 3 flow. * Mid Circumflex Coronary Artery to mCIRC: 90% stenosis treated with MDT R MARGOT 2.5X30 MONIQUE. 0% residual stenosis, ARIELLA: 3 flow. * First Obtuse Marginal Branch Segment: 100% stenosis treated with AB TREK 2.25X8 RX BALLOON. 0% residual stenosis, ARIELLA: 3 flow. * LM to pLAD: 60% stenosis treated with MDT NC EUPHORA RX 2.72N60VT BALLOON and MDT R MARGOT 2.5X22 MONIQUE. 0% residual stenosis, ARIELLA: 3 flow. * 1st Dia% stenosis treated with AB TREK 2.25X8 RX BALLOON, MDT R MARGOT 2.5X15 MONIQUE, and MDT NC EUPHORA RX 2.00C65FN BALLOON. 0% residual stenosis, ARIELLA: 3 flow. * Proximal Circumflex Coronary Artery to pCIRC: 90% stenosis treated with MDT NC EUPHORA RX 2.65G35QP BALLOON, MDT R MARGOT 2.5X22 MONIQUE, and AB MINI TREK 1.50X6 RX BALLOON. 0% residual stenosis, ARIELLA: 3 flow. * Mid Circumflex Coronary Artery to mCIRC: 90% stenosis treated with MDT R MARGOT 2.5X30 MONIQUE. 0% residual stenosis, ARIELLA: 3 flow. * First Obtuse Marginal Branch Segment: 100% stenosis treated with AB TREK 2.25X8 RX BALLOON. 0% residual stenosis, ARIELLA: 3 flow. * LM to pLAD: 60% stenosis treated with MDT NC EUPHORA RX 2.93R94HG BALLOON and MDT R MARGOT 2.5X22 MONIQUE. 0% residual stenosis, ARIELLA: 3 flow. * 1st Dia% stenosis treated with AB TREK 2.25X8 RX BALLOON, MDT R MARGOT 2.5X15 MONIQUE, and MDT NC EUPHORA RX 2.54O24DW BALLOON. 0% residual stenosis, ARIELLA: 3 flow. * Proximal Circumflex Coronary Artery to pCIRC: 90% stenosis treated with MDT NC EUPHORA RX 2.75T89OV BALLOON, MDT R MARGOT 2.5X22 MONIQUE, and AB MINI TREK 1.50X6 RX BALLOON. 0% residual stenosis, ARIELLA: 3 flow. * Mid Circumflex Coronary Artery to mCIRC: 90% stenosis treated with MDT R MARGOT 2.5X30 MONIQUE. 0% residual stenosis, ARIELLA: 3 flow. * First Obtuse Marginal Branch Segment: 100% stenosis treated with AB TREK 2.25X8 RX BALLOON. 0% residual stenosis, ARIELLA: 3 flow. * Procedure detail: Bilateral femoral artery access was obtained. We placed a 6 Azerbaijani sheath in right femoral artery for placement of coronary catheters. Left common femoral artery access was used to place Impella sheath. At this time we administered IV heparin to maintain an ACT of 250 seconds. We engaged left main artery with XB 3.5 guide catheter. A 0.014 run-through guidewire was used to cross into distal diagonal. We predilated diagonal stenosis with a 2.25 x 8 mm semicompliant balloon. This was followed by placement of 2.5 x 15 mm resolute [place] drug-eluting stent. We postdilated the stent with a 2.5 x 8 mm NC balloon. We then turned our attention to left circumflex stenosis. We used the same run-through wire to cross the left circumflex artery stenosis and put in the distal vessel. We predilated proximal left circumflex stenosis with a 2.5 x 8 mm NC balloon. This was followed by placement of 2.5 x 30 mm resolute Margot drug-eluting stent and mid to distal left circumflex artery. We then placed a 2.5 x 22 mm resolute [place] drug-eluting stent and proximal left circumflex artery. We noticed residual distal vessel stenosis post stent. As this was a small artery we only perform balloon angioplasty with a 2.25 x 8 mm semicompliant balloon. A second run-through wire was used crossed into distal diagonal vessel. We predilated the left main artery with a 2.5 x 8 mm NC balloon. This was followed by placement of a 2.5 x 22 mm resolute Margot drug-eluting stent from ostial left main artery into the diagonal stent. The stent was postdilated with a 2.5 x 8 mm NC balloon. Ostial left circumflex artery was dilated with a 1.5 x 6 mm semicompliant balloon. At this time final angiogram was performed that showed excellent stent expansion, no residual stenosis and ARIELLA-3 flow. Guidewires and guide catheter were removed. Angio-Seal was used to obtain hemostasis on the right femoral artery. Impella was left in place to provide LV support in ICU. It was secured with sutures. Patient left the Architectural Manager in a stable condition.. Conclusions 1. There is severe coronary artery disease with multivessel disease. 2. Patient has prior CABG. 3. LM to pLAD was treated with Balloon and Drug Eluting Stent. 4. 1st Diag was treated with two Balloon and Drug Eluting Stent. 5. Proximal Circumflex Coronary Artery to pCIRC was treated with two Balloon and Drug Eluting Stent. 6. Mid Circumflex Coronary Artery to mCIRC was treated with Drug Eluting Stent. 7. First Obtuse Marginal Branch Segment was treated with Balloon. 8. Impella assisted high risk PCI. 9. Impella left in place for continued LV support. Recommendations * Transfer back to ICU. * Aspirin and plavix for atleast 1 year. * Therapeutic heparin to continue for impella and also for afib. * Check echocardiogram to assess optimal positioning of the impella. * CBC to be checked in four hours. * Will need continued ICU monitoring. Interventional RX Recommendation: PCI w/o planned CABG Diagnostic RX Recommendation: PCI w/o planned CABG Anticoagulation: Heparin Pressures Phase:Rest AO : 110 / 73 ( 85 ) @ 3:48:00 AM 91 / 77 ( 84 ) @ 3:51:00 AM LV : 76 / -2 / @ 3:37:00 AM Clinical Evaluation EBL: 5mL-10mL Procedural Details Procedure Consent Obtained. Pre-Procedure Time Out. Identified patient by full name and date of as verbalized by the patient/guarantor. Does the consent match the physician's order: Yes. Accurate & Complete Informed Consent: Yes. Inpatient/Outpatient History & Physical on Chart: Yes. If H&P is completed, is and addenduem needed: No; If yes, is the addendum complete: N/A. Visualize and Verify Site with Patient/Guarantor: N/A. Relevant Radiology Images available: N/A. Pre-op teaching completed and patient verbalized understanding. The risks, benefits, and alternatives of sedation and/or procedure were discussed by physician. The patient agrees to continue. Procedure started. Anesthesiologist present to mainage airway, oxygen and sedation. Cardiovascular Instability: Yes, if yes, Ventricular Arrhythmias. Correct patient, site and procedure confirmed by cath team. [facility] Clinical Fraility Score: 4: Vulnerable. Architectural Manager Indications: ACS > 24 hours. Chest Pain Symptom Assessment: Typical Angina Symptoms. PERRLA. Strong, equal hand termite exterminator helper bilaterally. Lungs clear x 5 lobes. IV Site on Arrival: 20 gauge x2 in the right forearm. IV Site on Arrival: 20 gauge in the left forearm. IV Fluids: 0.9% NaCl at KVO. 0 mL infused prior to computer lab assistant. bilateral groins was prepped with chloroprep then draped in the usual sterile fashion. Physician arrived. Equipment: 6F - Femoral. Pre Procedural Pulses: bilateral dorsalis pedis was Doppled. Pre Procedural Pulses: bilateral posterior tibial was Doppled. Baseline sample Acquired. HR: 97 BPM. Anesthesiogolist will be starting Art Line. Art line in right radial. Cardiac Cath Pack. ACIST Manifold Kit Model BT 2000. Heparinized Saline (2 units/mL), 1000 mL bag. Kit, Micropuncture. Physician scrubbed in. Immediate Pre-Procedure Time Out. Correct Patient: Yes; Correct Procedure: Yes; Correct Site: Yes; Correct Patient Position: Yes; Correct Supplies: Yes; Dried Flammable Prep: Yes; Blood Products Available: N/A;. Lidocaine 1% infiltrated to the left groin. Pt arrived with hepain dripped. Stopped at this time by aneshesia per Dr Jolly. Pt arrived with AP pads on. Called ultrasound to come assist with gaining access. Lidocaine 1% infiltrated to the right groin. Right femoral Arterial access obtained with micropuncture set. Alvaro from ultrasound arrived to assist. Left femoral Arterial access obtained with micropuncture set. Hand injection through left sheath. Perclose device prepped in left groin. Wire in. Sheath removed from left groin. A second Perclose device prepped in left groin. Sheath re-inserted over wire in left femoral artery. Sheath removed from left groin. 8 fr dilator inserted to open artery. 8 fr out. 10 fr dilator inserted to open artery. 10 fr out. 12 fr dilator inserted to open artery. 12 fr out. Sheath upsized to a 12 Fr. ACT drawn. Results 132 seconds. Therapeutic limits - pre-heparin administration 90-150 seconds and monitoring heparin during a vascular procedure >250 seconds. Impella device prepared. A 5 honduran Angled Pig catheter in over wire through left femoral access. Patient's family updated. EDP Sample taken: LV 76/-3,22; HR: 62 BPM; SpO2: 94%. Impella wire inserted. Catheter removed over the standard wire. Wire in LV. Impella inserted over wire. Wire out. Impella working. ACT drawn. Results 260 seconds. Therapeutic limits - pre-heparin administration 90-150 seconds and monitoring heparin during a vascular procedure >250 seconds. 6 honduran XB 3.5 SH guide catheter was inserted over the wire through right femoral sheath. Runthrough guidewire was advanced through the guide catheter to lesion in the diaganol. Inflation number : 1 A AB TREK 2.25X8 RX BALLOON was prepped and advanced across the 1st Diag , then inflated to 8 LIMA for 0:20 seconds. Inflation number: 2 The AB TREK 2.25X8 RX BALLOON was reinflated across the 1st Diag, to 10 LIMA for 0:26 seconds. Balloon out. Inflation Number : 3 A KRYSTAL Swann MARGOT 2.5X15 MONIQUE -Lot Number# [id number] exp date 11/16/2021 was prepped and advanced across the 1st Diag. The stent was deployed at 12 LIMA for 0:30 seconds. Stent balloon out over wire. Results checked. Dr Jolly discussing case with Dr Moyer. Inflation number : 4 A KRYSTAL MELGOZA EUPHORA RX 2.09O18GP BALLOON was prepped and advanced across the 1st Diag , then inflated to 12 LIMA for 0:33 seconds. BP 112/83 per anesthesia art line. Inflation number: 5 The MDT NC EUPHORA RX 2.13J92HT BALLOON was reinflated across the 1st Diag, to 14 LIMA for 0:19 seconds. Inflation number: 6 The MDT NC EUPHORA RX 2.52D28UR BALLOON was reinflated across the 1st Diag, to 14 LIMA for 0:11 seconds. Balloon out. Runthrough repositioned to mid Circ. MDT R MARGOT 2.5x30 MONIQUE inserted. Unable to cross lesion. Intact stent removed. Guideliner inserted. MDT R MARGOT 2.5x30 MONIQUE inserted. Unable to cross lesion. Intact stent removed. Inflation number: 1 The MDT NC EUPHORA RX 2.73X00TF BALLOON was reinflated across the Prox CX, to 14 LIMA for 0:22 seconds. Inflation number: 2 The MDT NC EUPHORA RX 2.20L78LA BALLOON was reinflated across the Prox CX, to 16 LIMA for 0:17 seconds. Inflation number: 3 The MDT NC EUPHORA RX 2.67B35LQ BALLOON was reinflated across the Prox CX, to 14 LIMA for 0:18 seconds. Balloon out. Family updated. BP per art line 103/88. Inflation Number : 1 A MDT R MARGOT 2.5X30 MONIQUE -Lot Number# [id number] exp date 11/19/2020 was prepped and advanced across the Mid CX. The stent was deployed at 12 LIMA for 0:35 seconds. Stent balloon out over wire. Guideliner out. Inflation Number : 4 A MDT R MARGOT 2.5X22 MONIQUE -Lot Number# [id number] exp date 03/10/2021 was prepped and advanced across the Prox CX. The stent was deployed at 12 LIMA for 0:27 seconds. Stent balloon out over wire. ACT drawn. Results 438 seconds. Therapeutic limits - pre-heparin administration 90-150 seconds and monitoring heparin during a vascular procedure >250 seconds. Results checked. A second Runthrough guidewire was advanced through the guide catheter to lesion in the OM. Runthrough wire from circ out. Mash Preparatory Operator 50 wire inserted to CIRC. Inflation number : 1 A AB TREK 2.25X8 RX BALLOON was prepped and advanced across the 1st Ob Esme , then inflated to 10 LIMA for 0:38 seconds. Inflation number: 2 The AB TREK 2.25X8 RX BALLOON was reinflated across the 1st Ob Esme, to 10 LIMA for 0:16 seconds. Balloon out. Runthrough repositioned to diaganol. Inflation number: 1 The MDT NC EUPHORA RX 2.88P03AE BALLOON was reinflated across the LMCA, to 10 LIMA for 0:20 seconds. Inflation number: 2 The MDT NC EUPHORA RX 2.62U21KO BALLOON was reinflated across the LMCA, to 10 LIMA for 0:19 seconds. Inflation number: 3 The MDT NC EUPHORA RX 2.69S80MU BALLOON was reinflated across the LMCA, to 8 LIMA for 0:24 seconds. Balloon out. Inflation Number : 4 A MDT R MARGOT 2.5X22 MONIQUE -Lot Number# [id number] exp date 12/06/2021 was prepped and advanced across the LMCA. The stent was deployed at 12 LIMA for 0:29 seconds. Stent balloon out over wire. Family updated. Mash Preparatory Operator wire pulled back into guide. Inflation number: 5 The MDT NC EUPHORA RX 2.36J67BS BALLOON was reinflated across the LMCA, to 14 LIMA for 0:23 seconds. Inflation number: 6 The MDT NC EUPHORA RX 2.53V71EP BALLOON was reinflated across the LMCA, to 12 LIMA for 0:16 seconds. Inflation number: 7 The MDT NC EUPHORA RX 2.99E28XD BALLOON was reinflated across the LMCA, to 12 LIMA for 0:09 seconds. Inflation number: 8 The MDT NC EUPHORA RX 2.86T51IA BALLOON was reinflated across the LMCA, to 14 LIMA for 0:18 seconds. Inflation number: 9 The MDT NC EUPHORA RX 2.31I85CZ BALLOON was reinflated across the LMCA, to 14 LIMA for 0:11 seconds. Balloon out. Results checked. Mash Preparatory Operator wire readvanced to circ. Runthrough wire out. Mash Preparatory Operator 50 wire out to be reshaped. Mash Preparatory Operator wire inserted to Circ. Mash Preparatory Operator 50 wire out unable to advance. Runthrough wire inserted to Circ. 2.25x8 TREK balloon inserted. Unable to cross lesion. Balloon out over wire. Inflation number : 5 A AB MINI TREK 1.50X6 RX BALLOON was prepped and advanced across the Prox CX , then inflated to 14 LIMA for 0:21 seconds. Inflation number: 6 The AB MINI TREK 1.50X6 RX BALLOON was reinflated across the Prox CX, to 17 LIMA for 0:18 seconds. Inflation number: 7 The AB MINI TREK 1.50X6 RX BALLOON was reinflated across the Prox CX, to 18 LIMA for 0:09 seconds. Balloon out. Wire out. Results checked. Parth (IMPELLA Rep) working to wean Impella. Pressure to soft. Unable to wean Impella. Groin picture on right. ACT drawn. Results 239 seconds. Therapeutic limits - pre-heparin administration 90-150 seconds and monitoring heparin during a vascular procedure >250 seconds. A Angio-Seal VIP was successful obtaining hemostatsis at the Right Femoral artery insertion site. A Suture was successful obtaining hemostatsis at the Left Femoral artery insertion site. 14 fr sheath peeled away from the Impella. 13 fr Impella sheath advanced. Medication's Wasted: Lidocaine 1% = 49.6 mg. Medication's Wasted: Other = Cardene 24.75 mg. Sheath(s) sutured into position with 2-0 silk and sterile 4x4's and Op-site applied over the site. No oozing or signs and symptoms of hematoma noted. Physician scrubbed out. Post Procedure: Pulses reassessed and unchanged. PERRLA. Strong, equal hand termite exterminator helper bilaterally. No VTE prophylaxis required. Contrast type used: Visipaque 320 mgI/mL, 500 mL bottle. Post-op diagnosis: severe Left main/ diag/ circ stenosis. Complications: none. Estimated blood loss: 5mL-10mL. Procedure completed. Total IV fluids: 900 mL. Patient transferred by bed to ICU. Vital chart was stopped. Access Site Site: Right Femoral artery Sheath Size: 6 Fr Hemostasis Method: Angio-Seal VIP ([place]) Hemostasis Success: Successful Site: Left Femoral artery Sheath Size: 6 Fr Hemostasis Method: Suture Hemostasis Success: Successful Procedure Medications Start: 8:31 AM Stop: 8:31 AM Medication: Heparin Amount: 5000 units Route: I.V. Start: 8:33 AM Stop: 8:33 AM Medication: Heparin Amount: 2000 units Route: I.V. Start: 8:47 AM Stop: 8:47 AM Medication: Heparin Amount: 2000 units Route: I.V. Start: 9:17 AM Stop: 9:17 AM Medication: Heparin Amount: 2000 units Route: I.V. Start: 9:33 AM Stop: 9:33 AM Medication: Heparin Amount: 1000 units Route: I.V. Start: 9:34 AM Stop: 9:34 AM Medication: Nitrogylcerin Amount: 200 mcg Route: I.C. Start: 9:53 AM Stop: 9:53 AM Medication: Cardene Amount: 250 mcg Route: I.C. Start: 10:12 AM Stop: 10:12 AM Medication: Nitrogylcerin Amount: 200 mcg Route: I.C. Start: 10:36 AM Stop: 10:36 AM Medication: Heparin Amount: 1000 units Route: I.V. I, the attending physician, have reviewed and verified all procedure medications. Yes, all medications given per verbal order History/Risk Factors Hypertension: Yes Dyslipidemia: No Peripheral Arterial Disease (PAD): No Myocardial Infarction (MA): Yes Obesity: No Renal Disease: No Tobacco Use: Former Prior Interventions PCI: Yes CABG: Yes Valve Surgery: No Report Signatures Finalized by Betito Jolly MD on 08/18/2020 06:43 PM
--- NOTE | 2020-08-05 | USCV_ITS ---
Ze Waite Age: 74 Gender: M : 1945 Exam Date: 08/05/2020 08:03 Ordering Phys: Betito Jolly M.D Technologist: Arcelia Hassan Exam Location: [facility] – [place] Indication: GUIDANCE Findings GUIDANCE PROVIDED IN PINNER PRINTED CIRCUIT BOARDS Conclusions Left common femoral vein was identified and was found to be patent. Dr Tate Iglesias MD [facility] (Electronically Signed) Final Date: 05 August 2020 18:53 S
[2020-08-05] MEDS: ondansetron 2 mg/ML SDV 2 mL 4 MG IVP ×2 (00:19→22:10)
[2020-08-05] MEDS: pantoprazole 40 mg SDV IV (01:39)
[2020-08-05] MEDS: LORazepam 2 mg/mL INJ 1 mL 0.5 MG IVP ×2 (01:41→05:47)
[2020-08-05] MEDS: ipratropium-albuterol 3 mL Neb INHALATION (04:10)
[2020-08-05 04:16] LABS: Basophils % 0.2 %; Eosinophils % 0.2 %; Hematocrit 38.2 % (42.0-52.0); Hemoglobin 12.9 g/dL (11.7-16.6); Lymphocytes # 0.6 10^3/uL (0.8-4.8); Lymphocytes % 5.1 %; Mean Corpuscular HGB Conc 33.8 g/dL (30.0-36.0); Mean Corpuscular Hemoglobin 29.1 pg (28.0-34.0); Mean Platelet Volume 11.3 fL (7.4-10.4); Monocytes # 1.1 10^3/uL (0.2-0.9); Monocytes % 9.1 %; Neutrophils # 10.23 10^3/uL (1.8-7.7); Neutrophils % 85.1 %; Nucleated Red Blood Cells % 0 %; Platelet Count 192 10^3/cmm (130-400); Red Blood Count 4.44 10^6/uL (4.1-5.3)
[2020-08-05 04:22] LABS: Anion Gap 16.1 (5-19); Blood Urea Nitrogen 31 mg/dL (8-23); Calcium 8.1 mg/dL (8.5-10.5); Carbon Dioxide 21 mmol/L (22-29); Chloride 98 mmol/L (98-107); Glucose 285 mg/dL (65-115); Osmolality Calculated 289 mOsm/kg (285-295); Potassium 4.1 mmol/L (3.5-5.1); Sodium 131 mmol/L (136-145)
[2020-08-05 04:23] LABS: Partial Thromboplastin Time 39.3 SECONDS (23.9-36.7)
[2020-08-05] MEDS: heparin 5,000 unit/mL INJ 1 mL IV (05:03)
[2020-08-05] MEDS: heparin drip 25,000 UNIT/500 ML PREMIX 20 UNIT IV (05:04)
[2020-08-05] MEDS: diphenhydrAMINE 50 mg Capsule PO (05:47)
--- NOTE | 2020-08-05 06:44 | P.ANESASSM_ITS ---
Pre-Anesthetic Assessment Pre-Anesthetic Assessment: Height/Weight: Height 1.75 m Weight 68.946 kg Temp Pulse Resp BP Pulse Ox 98.2 F 98 19 H 96/74 94 08/04/20 15:54 08/05/20 06:00 08/05/20 04:10 08/04/20 19:35 08/05/20 04:10 Preop Diagnosis: NSTEMI Proposed Procedure: Operation Date: 08/02/20 14:00 Proposed Procedures p Cardiac Catheterization(Not Applicable) - Betito Jolly M.D Operation Date: 08/04/20 06:00 Proposed Procedures p Cardiac Catheterization(Not Applicable) - Betito Jolly M.D Was Beta Trinity taken within 24 hours: N/A Was Clonidine taken within 24 h ours: N/A Social: Social History: No alcohol and No tobacco Exam: Pre-Anes Outpt Exam: alert and oriented x 3 Additional Exam Findings (including area of procedure): Decreased BS Airway: Submandibular: WNL Cervical ROM: WNL MP: 2 Dentition: False CV/HEM: CV/HEM: Afib, Arrythmia (VT), CHF, HTN and VT (recent NSTEMI) Comments: Attempted Cath/PTCA yesterday with decompensation, EF 30% Metabolic: Metabolic: DM Anesthetic Plan: ASA status: 4 Anesthesia: General Risk of > 500 ml blood loss (7ml/kg in children): No Meds/Allergies Current Medications: Current Medications Generic Name Dose Route Start Last Admin Trade Name Freq PRN Reason Stop Dose Admin Albuterol/Ipratrop ium 3 ml 08/04/20 08:45 08/05/20 04:18 Ipratropium-Albu terol 3 Ml Neb INHALATION Not Given Q4H.RESPIRATORY S CH Alprazolam 0.25 mg 08/04/20 07:51 08/04/20 14:23 Alprazolam 0.25 Mg Tablet PO 0.25 mg TID PRN Administration ANXIETY Amiodarone HCl 400 mg 08/04/20 09:00 08/04/20 17:37 Amiodarone 200 M g Tablet PO 400 mg BID MONICA Administration Aspirin 81 mg 08/03/20 09:00 08/04/20 09:15 Aspirin 81 Mg Ec Tablet PO 81 mg DAILY MONICA Administration Atorvastatin Calci um 40 mg 08/02/20 21:00 08/04/20 22:33 Atorvastatin 40 Mg Tablet PO 40 mg BEDTIME MONICA Administration Clopidogrel Bisulf ate 75 mg 08/03/20 09:00 08/04/20 09:15 Clopidogrel 75 M g Tablet PO 75 mg DAILY MONICA Administration Furosemide 60 mg 08/04/20 23:30 08/04/20 22:48 Furosemide 10 Mg /Ml Sdv 10ml IVP Not Given TID MONICA Heparin Sodium (Be ef Lung) 0 unit 08/05/20 03:59 08/05/20 05:03 Heparin 5,000 Un it/Ml Inj 1 Ml IV 3,500 unit PRN PRN Administration Heparin weight-ba se protocol Protocol Levofloxacin/Dextr ose 750 mg in 150 mls @ 100 mls/hr 08/02/20 22:15 08/04/20 22:33 Levaquin-D5w IV 100 mls/hr Q24H MONICA Administration Protocol Amiodarone HCl 900 mg/ 518 mls @ 0 mls/h r 08/04/20 19:15 08/05/20 05:02 Dextrose/ IV Misce llaneous IV 1 mg/min Supplies .Q0M MONICA 34.5 mls/hr Administration Protocol Per Protocol Sodium Chloride 1,000 mls @ 100 m ls/hr 08/04/20 23:30 08/04/20 23:54 Sodium Chloride 0.9% IV 100 mls/hr .Q10H MONICA Administration Heparin Sodium/Sod ium Chloride 25,000 unit in 50 0 mls @ 0 mls/hr 08/05/20 05:00 08/05/20 05:04 Heparin Drip IV 14.5 unit/kg/hr .Q0M MONICA 20 mls/hr Administration Protocol Per Protocol Insulin Aspart 6 unit 08/04/20 11:00 08/04/20 17:35 Insulin Aspart 1 00 Unit/1 Ml SUBCUT 6 unit TIDAC MONICA Administration Insulin Aspart 0 unit 08/04/20 12:00 08/04/20 23:29 Insulin Aspart 1 00 Unit/1 Ml SUBCUT 8 unit WM&BEDTIME MONICA Administration Protocol Insulin Glargine 20 unit 08/04/20 21:00 08/04/20 23:37 Insulin Glargine 100 Units/1 Ml SUBCUT 20 unit BEDTIME MONICA Administration Nitroglycerin 0.4 mg 08/04/20 07:51 03/16/21 19:06 Nitroglycerin 0. 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 Family History Denies family history of Cancer Social History Smoking and tobacco status: former smoker Alcohol intake: never Substance/Drug Use: never Household members: family Housing: House Data Anesthesia CBC & Chem 7: 08/05/20 03:57 08/05/20 03:57 Other Labs: Laboratory Results - last 48 hr 08/03/20 08/03/20 08/03/20 04:15 06:47 11:24 WBC RBC Hgb Hct MCV MCH MCHC RDW Plt Count MPV Neut % (Auto) Lymph % (Auto) [place] % (Auto) Eos % (Auto) Baso % (Auto) Neut # (Auto) Lymph # (Auto) [place] # (Auto) Eos # (Auto) Baso # (Auto) Nucleated RBC % (auto) Nucleated RBCs # APTT Sodium Potassium Chloride Carbon Dioxide Anion Gap BUN Creatinine GFR Calculation Glucose POC Glucose 228 H 215 H Calculated Osmolality Calcium Phosphorus Magnesium Troponin T Gen 5 ng/L NT-Pro-B Natriuret Pep Serum Ketones Negative 08/03/20 08/03/20 08/03/20 16:41 20:34 20:34 WBC 10.0 RBC 4.85 Hgb 14.0 Hct 41.4 L MCV 85.4 MCH 28.9 MCHC 33.8 RDW 12.7 Plt Count 180 MPV 11.0 H Neut % (Auto) 77.9 Lymph % (Auto) 12.0 [place] % (Auto) 9.1 Eos % (Auto) 0.3 Baso % (Auto) 0.3 Neut # (Auto) 7.75 H Lymph # (Auto) 1.2 [place] # (Auto) 0.9 Eos # (Auto) 0.0 Baso # (Auto) 0.0 Nucleated RBC % (auto) 0 Nucleated RBCs # 0.0 APTT Sodium 131 L Potassium 3.6 Chloride 98 Carbon Dioxide 21 L Anion Gap 15.6 BUN 32 H Creatinine 1.1 GFR Calculation Not Reportable Glucose 220 H POC Glucose 254 H Calculated Osmolality 286 Calcium 8.7 Phosphorus Magnesium Troponin T Gen 5 ng/L NT-Pro-B Natriuret Pep Serum Ketones 08/03/20 08/04/20 08/04/20 20:46 04:14 08:36 WBC RBC Hgb Hct MCV MCH MCHC RDW Plt Count MPV Neut % (Auto) Lymph % (Auto) [place] % (Auto) Eos % (Auto) Baso % (Auto) Neut # (Auto) Lymph # (Auto) [place] # (Auto) Eos # (Auto) Baso # (Auto) Nucleated RBC % (auto) Nucleated RBCs # APTT Sodium 133 L Potassium 3.5 Chloride 100 Carbon Dioxide 21 L Anion Gap 15.5 BUN 27 H Creatinine 0.9 GFR Calculation Not Reportable Glucose 142 H POC Glucose 232 H 214 H Calculated Osmolality 284 L Calcium 8.7 Phosphorus Magnesium Troponin T Gen 5 ng/L NT-Pro-B Natriuret Pep Serum Ketones 08/04/20 08/04/20 08/04/20 08:50 08:50 08:50 WBC 10.8 H RBC 4.90 Hgb 14.1 Hct 44.5 MCV 90.8 D MCH 28.8 MCHC 31.7 D RDW 13.1 Plt Count 179 MPV 11.6 H Neut % (Auto) 79.8 Lymph % (Auto) 10.2 [place] % (Auto) 8.5 Eos % (Auto) 0.8 Baso % (Auto) 0.3 Neut # (Auto) 8.60 H Lymph # (Auto) 1.1 [place] # (Auto) 0.9 Eos # (Auto) 0.1 Baso # (Auto) 0.0 Nucleated RBC % (auto) 0 Nucleated RBCs # 0.0 APTT Sodium 129 L Potassium 3.7 Chloride 96 L Carbon Dioxide 15 L Anion Gap 21.7 H BUN 27 H Creatinine 1.0 GFR Calculation Not Reportable Glucose 229 H POC Glucose Calculated Osmolality 280 L Calcium 8.6 Phosphorus Magnesium Troponin T Gen 5 ng/L NT-Pro-B Natriuret Pep 66194 H Serum Ketones 08/04/20 08/04/20 08/04/20 11:35 16:33 17:30 WBC RBC Hgb Hct MCV MCH MCHC RDW Plt Count MPV Neut % (Auto) Lymph % (Auto) [place] % (Auto) Eos % (Auto) Baso % (Auto) Neut # (Auto) Lymph # (Auto) [place] # (Auto) Eos # (Auto) Baso # (Auto) Nucleated RBC % (auto) Nucleated RBCs # APTT Sodium Potassium Chloride Carbon Dioxide Anion Gap BUN Creatinine GFR Calculation Glucose POC Glucose 269 H 268 H Calculated Osmolality Calcium Phosphorus Magnesium Troponin T Gen 5 ng/L 3373 H* NT-Pro-B Natriuret Pep Serum Ketones 08/04/20 08/05/20 08/05/20 19:17 03:57 03:57 WBC 12.0 H RBC 4.44 Hgb 12.9 Hct 38.2 L MCV 86.0 D MCH 29.1 MCHC 33.8 D RDW 13.0 Plt Count 192 MPV 11.3 H Neut % (Auto) 85.1 Lymph % (Auto) 5.1 [place] % (Auto) 9.1 Eos % (Auto) 0.2 Baso % (Auto) 0.2 Neut # (Auto) 10.23 H Lymph # (Auto) 0.6 L [place] # (Auto) 1.1 H Eos # (Auto) 0.0 Baso # (Auto) 0.0 Nucleated RBC % (auto) 0 Nucleated RBCs # 0.0 APTT Sodium 131 L 131 L Potassium 3.3 L 4.1 Chloride 95 L 98 Carbon Dioxide 20 L 21 L Anion Gap 19.3 H 16.1 BUN 28 H 31 H Creatinine 1.4 H 1.4 H GFR Calculation Not Reportable Not Reportable Glucose 249 H 285 H POC Glucose Calculated Osmolality 286 289 Calcium 8.6 8.1 L Phosphorus 2.4 L Magnesium 1.7 Troponin T Gen 5 ng/L NT-Pro-B Natriuret Pep Serum Ketones 08/05/20 03:57 WBC RBC Hgb Hct MCV MCH MCHC RDW Plt Count MPV Neut % (Auto) Lymph % (Auto) [place] % (Auto) Eos % (Auto) Baso % (Auto) Neut # (Auto) Lymph # (Auto) [place] # (Auto) Eos # (Auto) Baso # (Auto) Nucleated RBC % (auto) Nucleated RBCs # APTT 39.3 H Sodium Potassium Chloride Carbon Dioxide Anion Gap BUN Creatinine GFR Calculation Glucose POC Glucose Calculated Osmolality Calcium Phosphorus Magnesium Troponin T Gen 5 ng/L NT-Pro-B Natriuret Pep Serum Ketones Micro: Microbiology 08/02/20 12:36 Urine Culture - Final Urine,Clean Catch Escherichia coli Cardiac Studies: No Data to Display
--- NOTE | 2020-08-05 07:06 | W.PM.OPSUD ---
Surgery/Procedure H&P Update DATE OF PROCEDURE: August 05, 2020 DATE H&P PERFORMED: 08/02/20 H&P UPDATE INFORMATION: I have reviewed H&P completed within last 30 days, I have examined patient prior to procedure and Changes to prior documentation as noted here CHANGES TO PREVIOUS DOCUMENTATION: Patient underwent attempt for PCI of LCx/left main artery. Patient became unstable with engagement of guide catheter. Patient's pressure dampened. We were able to perform balloon angioplasty of the LCx that improved flow significantly in LCx(left main not ballooned). However patient developed pulmonary edema and could not stay still. He also went in afib with RVR. We decided to stop procedure there and stabilize patient with diuresis and rate control. Patient was sent back to CSU. In the PM, patient became tachycardia with wide complex tachycardia secondary to VT. Patient did not lose pulse or became unconscious. He became hypotensive with significant chest pain. He was cardioverted x 2 with successful return to normal sinus rhythm. Patient was started on Lidocaine gtt and amiodarone gtt Patient is unstable now with recurrent VT, chest pain and pulmonary edema. Given his severely reduced LV systolic function, marked dampening of pressures with left main engagement, ischemic myocardium other than COBB/LAD territory, patient is planned to undergo impella supported high risk PCI of left main to LCx and diagonal artery. EKG is showing marked ST depressions. PREOP DIAGNOSIS: NSTEMI/ Ventricular tachycardia PRIMARY INDICATION FOR PROCEDURE: NSTEMI/Ventricular tachycardia PLANNED PROCEDURE: Operation Date: 08/02/20 14:00 Proposed Procedures p Cardiac Catheterization(Not Applicable) - Betito Jolly M.D Operation Date: 08/04/20 06:00 Proposed Procedures p Cardiac Catheterization(Not Applicable) - Betito Jolly M.D 08/05/2020: Impella assisted high risk PCI of the left main/diagonal and LCx
[2020-08-05 08:28] LABS: Glucose Point of Care 252 mg/dL (70-110)
--- NOTE | 2020-08-05 11:52 | USCV_ITS ---
Ze Waite Age: 74 Gender: M : 1945 Exam Date: 08/05/2020 11:54 Ordering Phys: Betito Jolly M.D ([email or web address]) Technologist: Alvaro Darden [place] [facility] [place]: BP: / HR: Rhythm: Sinus Technical Quality: Good MEASUREMENTS (Male / Female) Normal Values FINDINGS Left Ventricle Right Ventricle Right Atrium Left Atrium Mitral Valve Aortic Valve Tricuspid Valve Pulmonic Valve Pericardium Aorta CONCLUSIONS This is a limited echocardiogram performed to assess impella positioning. Impella is in appropriate position with 3.8cm distance between the impella inlet and aortic valve Betito Jolly MD (Electronically Signed) Final Date: 05 August 2020 16:24 S
[2020-08-05] MEDS: sodium chloride 0.9% 1,000 ML 100 ML IV ×2 (13:00→20:13)
--- NOTE | 2020-08-05 13:09 | ANE.PACU2 ---
Inpatient post-anesthesia follow up: Airway intact: Yes Vital signs: Temperature 98.2 F Pulse Rate [Monito r] 99 Pulse Rate 66 Respiratory Rate 16 Blood Pressure [Ri ght Arm] 119/80 Blood Pressure 96/74 Pulse Oximetry 93 Oxygen Delivery Me thod [ Room Air Current Rate & Del gideon] Oxygen Delivery Me thod Oxymask Oxygen Flow Rate 8 Fraction of Inspir ed Oxygen Hydration adequate: Yes Nausea and vomiting: No Pain level: 1 Additional Comments: Sedated, extubated to ICU, stable (impella in place).
[2020-08-05] MEDS: ALPRAZolam 0.25 mg Tablet PO ×2 (13:30→21:49)
[2020-08-05] MEDS: clopidogrel 300 mg Tablet PO (13:33)
[2020-08-05] MEDS: aspirin 81 mg EC Tablet PO (13:33)
--- NOTE | 2020-08-05 14:06 | PC.NURSE ---
Pt bleeding, at IMpella site. pressure held and Dr. Jolly on floor and spoke with him. New orders received to hold Heparin for approx 30 and draw PTT. area redressed and Fem stop applied. Dr and nurse remain at bedside.
--- NOTE | 2020-08-05 14:46 | P.PN_ITS ---
Subjective Subjective: Interval history: Patient went for Impella device today because of persistent hypotension and worsening pulmonary edema, his sugars are still high he has not been eating very well, overnight events noted he was transferred to ICU because of wide-complex tachycardia was cardioverted twice, this morning he was on lidocaine and amiodarone gtt Vitals/I&O/Wt Last Vital Signs Temp 97.8 F 08/05/20 12:15 Pulse 67 08/05/20 14:00 Resp 23 H 08/05/20 14:00 BP 103/83 08/05/20 14:00 Pulse Ox 93 08/05/20 14:00 08/04/20 08/05/20 08/05/20 22:59 06:59 14:59 Intake Total 120 / 671 1307.984 / 9436.924 2106 / 1000 Output Total 1350 / 3625 305 / 3930 60 / 60 Balance -1230 / -2954 1002.984 / -1951.016 940 / 940 Physical Exam Narrative: EXAM NARRATIVE: Pleasant male With signs of CHF exacerbation however clinically looks euvolemic Variable S1-S2 Has Impella device, bloodsoaked dressing noticed in left groin area Lower extremities without any sign ischemia gangrene ulcer Alert oriented x3 GCS 15 Concentrated urine in urine bag No acute respiratory distress patient was laying supine no orthopnea Urinary Catheter Management^: Cantu: Cath Placed During This Visit: yes Reason for Continuing Indwelling Catheter: Accurate Measurement of Urinary Output in Critically Ill Patients Urinary Catheter Date of Insertion: 08/05/20 Urinary Catheter Time of Insertion: 00:35 Data : 08/05/20 16:30 08/05/20 03:57 Micro: Microbiology 08/02/20 12:36 Urine Culture - Final Urine,Clean Catch Escherichia coli A&P Assessment and plan (1) Atrial fibrillation with RVR: Status: Acute (2) Ventricular tachycardia: Status: Acute (3) Pulmonary edema: Status: Acute (4) Afib: Status: Acute (5) Hypertension: Status: Acute (6) Type 2 diabetes mellitus: Status: Acute (7) STEMI (ST elevation myocardial infarction): Status: Acute Additional A&P Information Persistent hyperglycemia with type 2 diabetes HGlobin A1c 9.3 I have scheduled his insulin with premeal 6 units along 20 units of Lantus and sliding scale, he still has high blood sugars ranging 220-230s no signs of DKA Considering worsening creatinine I am reluctant to increase his Lantus at this time, I would allow him to have more insulin via sliding scale instead of getting premeal scheduled dosages Late STEMI with A. fib & ventricular tachycardia with signs of CHF exacerbation currently on amiodarone and phenylephrine Status post Impella device Management as per cardiology I do believe his tachyarrhythmia NSTEMI is causing release of stress hormones which are causing hyperglycemia, however point to be noted, antiarrhythmic agents also run with D5 UTI: Ruled out Discontinue Levaquin Attestations Medical Necessity Statement*: As per cardiology Time Spent in Patient Care: (>than 50% of time spent in counselling and/or direct pt care on unit) . 20mins Coding Level of Care Code Acute [employer] for [facility] Diagnoses Atrial fibrillation with RVR I48.91 Ventricular tachycardia I47.2 Pulmonary edema J81.1 Afib I48.91 Hypertension I10 Type 2 diabetes mellitus E11.9 STEMI (ST elevation myocardial infarction) I21.3
--- NOTE | 2020-08-05 14:50 | PC.NURSE ---
60 pressure put into fem stop. pt continues to leak slowly. good pulses dopplered in bilat lower legs.
[2020-08-05 15:34] LABS: Partial Thromboplastin Time 147.3 SECONDS (23.9-36.7)
--- NOTE | 2020-08-05 16:07 | PC.NURSE ---
Pt continues to slowly soak bandages. PTT result is 143.7. Dr. Jolly notified of results and to let him know that the Heparin drip has not been started yet. Instructed to hold off on starting Heparin drip, draw a CBC now, additional PTT in 3 hours. He also states he will be down shortly to change the dressing at Impella site.
--- NOTE | 2020-08-05 16:30 | PC.NURSE ---
Aortic pressure and wave form has decreased some and the LV is showing a negative number. Dr. Jolly notified to check for volume to be given. New order for 500 ml bolus. reevaluate then give an additional bolus of 500ml. Groin continues to seep. Pulses in lower extremities are dopplered.
[2020-08-05 16:49] LABS: Basophils % 0.1 %; Eosinophils % 0.1 %; Hematocrit 31.3 % (42.0-52.0); Hemoglobin 10.7 g/dL (11.7-16.6); Lymphocytes # 1.1 10^3/uL (0.8-4.8); Lymphocytes % 8.6 %; Mean Corpuscular HGB Conc 34.2 g/dL (30.0-36.0); Mean Corpuscular Hemoglobin 29.4 pg (28.0-34.0); Mean Platelet Volume 11.1 fL (7.4-10.4); Monocytes % 7.8 %; Neutrophils # 10.67 10^3/uL (1.8-7.7); Neutrophils % 82.8 %; Nucleated Red Blood Cells % 0 %; Platelet Count 157 10^3/cmm (130-400); Red Blood Count 3.64 10^6/uL (4.1-5.3); Red Cell Distribution Width 13.2 % (12.1-15.1); White Blood Count 12.9 10^3/uL (4.0-10.0)
--- NOTE | 2020-08-05 17:46 | USCV_ITS ---
Ravindra Ze Age: 74 Gender: M : 1945 Exam Date: 08/05/2020 18:12 Ordering Phys: Betito Jolly M.D ([email or web address]) Technologist: Alvaro Darden Exam Location: [facility] Indication: IMPROPELLER BP: / HR: Rhythm: Sinus Technical Quality: Good MEASUREMENTS (Male / Female) Normal Values FINDINGS Left Ventricle Right Ventricle Right Atrium Left Atrium Mitral Valve Aortic Valve Tricuspid Valve Pulmonic Valve Pericardium Aorta CONCLUSIONS Limited echocardiogram performed to reposition the impella. Initial images demonstrated distance of impella inlet to aortic valve of >5cm. Impella was pulled back under imaging and final images showed aortic valve to impella inlet optimal distance of 3.9cm. Betito Jolly MD (Electronically Signed) Final Date: 07 August 2020 15:53 S
--- NOTE | 2020-08-05 19:00 | PC.NURSE ---
MD notified of patient's pupil change in size L>R, neurological assessment is negative. MD notified nurse that they will present to bedside
--- NOTE | 2020-08-05 19:01 | PC.NURSE ---
Pt bleeding in groin increased and blood noticed in urine. STAT Echo ordered and Dr. Jolly notified. New orders received. PTT, CBC and Type and screen drawn.
--- NOTE | 2020-08-05 19:22 | PM.PN ---
Subjective Subjective: Interval history: Patient went into ventricular tachycardia last night. He was cardioverted x2. We performed successful Impella assisted revascularization of left main to diagonal and of left circumflex artery with MONIQUE x3. Patient is doing well post procedure. Vitals/I&O/Wt Last Vital Signs Temp 98.1 F 08/05/20 15:00 Pulse 74 08/05/20 19:00 Resp 29 H 08/05/20 19:00 BP 101/72 08/05/20 19:00 Pulse Ox 95 08/05/20 19:00 08/05/20 08/05/20 08/05/20 06:59 14:59 22:59 Intake Total 1307.984 / 2179.364 0357 / 1075 203 / 1278 Output Total 305 / 3930 135 / 135 175 / 310 Balance 1002.984 / -1951.016 940 / 940 28 / 968 Physical Exam Narrative: EXAM NARRATIVE: NARRATIVE: Alert and oriented x 3 Tachycardic, irregularly irregular,S1, S2, has grade 3/6 systolic murmur No acute respiratory distress, significant crackles bilaterally Abdomen is soft nontender EOMI No neurological deficit No lower extremity edema Appropriate mood and affect Urinary Catheter Management^: Cantu: Cath Placed During This Visit: yes Reason for Continuing Indwelling Catheter: Accurate Measurement of Urinary Output in Critically Ill Patients Urinary Catheter Date of Insertion: 08/05/20 Urinary Catheter Time of Insertion: 00:35 Data : 08/05/20 16:30 08/05/20 03:57 A&P Assessment and plan (1) NSTEMI (non-ST elevated myocardial infarction): Status: Acute (2) Type 2 diabetes mellitus: Status: Acute (3) Hypertension: Status: Acute (4) UTI (urinary tract infection): Status: Acute (5) Ventricular tachycardia: Status: Acute (6) Atrial fibrillation with RVR: Status: Acute Patient presented late with acute NM evidenced by significantly elevated troponin that trended down and spontaneous temporary chest pain resolution. Coronary angiogram demonstrated, likely culprit was SVG to OM/diagonal that is ostially occluded. SVG to RCA is occluded as well. COBB to LAD is patent. Patient underwent attempt for PCI of LCx/left main artery. Patient became unstable with engagement of guide catheter. Patient's pressure dampened. We were able to perform balloon angioplasty of the LCx that improved flow significantly in LCx(left main not ballooned). However patient developed pulmonary edema and could not stay still. He also went in afib with RVR. We decided to stop procedure there and stabilize patient with diuresis and rate control. Patient was sent back to CSU. In the PM, patient became tachycardia with wide complex tachycardia secondary to VT. Patient did not lose pulse or became unconscious. He became hypotensive with significant chest pain. He was cardioverted x 2 with successful return to normal sinus rhythm. Patient was started on Lidocaine gtt and amiodarone gtt Patient was unstable with recurrent VT, chest pain and pulmonary edema. Given his severely reduced LV systolic function, marked dampening of pressures with left main engagement, ischemic myocardium other than COBB/LAD territory, we decided to perform high risk PCI of left main/diagonal/left circumflex artery. This was Impella assisted procedure. Patient did well during the procedure. We left the Impella line as patient was still hypotensive post procedure. Likely will remove Impella tomorrow if patient stays hemodynamically stable. Continue aspirin and Plavix High intensity statin therapy Restart heparin drip Continue amiodarone gtt Hold Lasix Patient has UTI. On antibiotic therapy. We have consulted hospitalist service to help with management of medical issues including antibiotic management and diabetes. Appreciate input ECHO shows severely reduced systolic function with EF of 30-35% Attestations Medical Necessity Statement*: Care expected to cross 2 midnights. Patient is s/p successful revascularization of left main/diagonal and left circumflex artery with Impella assistance. Patient will need ICU stay for now. Coding Level of Care Code Acute [facility] Player for [facility] Diagnoses NSTEMI (non-ST elevated myocardial infarction) I21.4 Type 2 diabetes mellitus E11.9 Hypertension I10 UTI (urinary tract infection) N39.0 Ventricular tachycardia I47.2 Atrial fibrillation with RVR I48.91
--- NOTE | 2020-08-05 19:30 | PM.ACPR ---
Procedure/Consent Time out: Time Out Performed: No Consent: Consent for Procedure: Consent obtained from patient, Risks & Benefits reviewed and Agrees to proceed with procedure Procedure Narrative: Impella repositioning with imaging(Echo): Patient's Impella waveforms demonstrated possible deep placement. We performed echocardiogram that confirmed that Impella was about 2 cm deeper than optimal position. Under echo guidance I repositioned Impella by pulling it out by 2 cm. Impella site was redressed after that. Echocardiogram demonstrated optimal position of Impella after repositioning. Acute Procedures Epistaxis Control: Time out performed: No
[2020-08-05 19:52] LABS: Glucose Point of Care 299 mg/dL (70-110)
[2020-08-05 19:58] LABS: Partial Thromboplastin Time 76.6 SECONDS (23.9-36.7)
[2020-08-05] MEDS: atorvastatin 40 mg Tablet PO (20:13)
[2020-08-05] MEDS: insulin glargine 100 units/1 mL 20 UNIT SUBCUT (20:40)
[2020-08-05] MEDS: phenylephrine inj 25 MG in sodium chloride 0.9% 250 ML 6.1 MG IV (20:42)
[2020-08-05 20:52] LABS: Glucose Point of Care 359 mg/dL (70-110)
[2020-08-05] MEDS: morphine 4 mg/mL SDV 1 mL 2 MG IVP (22:06)
[2020-08-06] VITALS (98 sets, daily range): BP systolic 78–117; BP diastolic 52–75; PULSE 65–89; RESP 16–28; TEMP 36.7–36.8; O2SAT 90–98
[2020-08-06 03:20] LABS: Basophils % 0.1 %; Hematocrit 30.3 % (42.0-52.0); Hemoglobin 9.9 g/dL (11.7-16.6); Lymphocytes # 0.9 10^3/uL (0.8-4.8); Lymphocytes % 4.9 %; Mean Corpuscular HGB Conc 32.7 g/dL (30.0-36.0); Mean Corpuscular Hemoglobin 28.9 pg (28.0-34.0); Mean Corpuscular Volume 88.3 fL (80-94); Mean Platelet Volume 11.5 fL (7.4-10.4); Monocytes # 1.7 10^3/uL (0.2-0.9); Monocytes % 9.9 %; Neutrophils # 14.88 10^3/uL (1.8-7.7); Neutrophils % 84.5 %; Nucleated Red Blood Cells % 0 %; Platelet Count 158 10^3/cmm (130-400); Red Blood Count 3.43 10^6/uL (4.1-5.3); Red Cell Distribution Width 13.3 % (12.1-15.1); White Blood Count 17.6 10^3/uL (4.0-10.0)
[2020-08-06 03:42] LABS: Blood Urea Nitrogen 35 mg/dL (8-23); Calcium 7.2 mg/dL (8.5-10.5); Carbon Dioxide 18 mmol/L (22-29); Chloride 104 mmol/L (98-107); Glucose 172 mg/dL (65-115); Osmolality Calculated 286 mOsm/kg (285-295); Sodium 132 mmol/L (136-145)
[2020-08-06 03:50] LABS: Anion Gap 14.1 (5-19); Potassium 4.1 mmol/L (3.5-5.1)
[2020-08-06] MEDS: ipratropium-albuterol 3 mL Neb INHALATION ×3 (04:05→08:20)
[2020-08-06] MEDS: sodium chloride 0.9% 1,000 ML 100 ML IV ×2 (06:32→15:12)
[2020-08-06 06:39] LABS: Partial Thromboplastin Time 171.8 SECONDS (23.9-36.7)
--- NOTE | 2020-08-06 07:00 | PC.NURSE ---
Due to recognized slight tint coloration of jaundice recognized in b/l sclera and under tongue, asked MD about adding on a Hepatic panel to AM labs. Day shift nurse made aware to follow up
[2020-08-06 07:15] LABS: Glucose Point of Care 196 mg/dL (70-110)
[2020-08-06 07:15] LABS: Glucose Point of Care 278 mg/dL (70-110)
[2020-08-06 07:57] LABS: Albumin Level 2.5 g/dL (3.5-5.2); Alkaline Phosphatase 48 IU/L (40-130); Globulin 2.4 g/dL (1.3-4.6); Total Bilirubin 1.4 mg/dL (0.15-1.2); Total Protein 4.9 g/dL (6.6-8.7)
[2020-08-06 07:59] LABS: Glucose Point of Care 173 mg/dL (70-110)
[2020-08-06 08:08] LABS: Alanine Aminotransferase 2437 U/L (0-41)
[2020-08-06 08:16] LABS: Aspartate Amino Transferase 2757 U/L (0-40); Procalcitonin 0.47 ng/mL (0-0.5)
[2020-08-06] MEDS: aspirin 81 mg EC Tablet PO (08:48)
[2020-08-06] MEDS: vancomycin 1,000 MG in sodium chloride 0.9% 250 ML 250 MG IV (09:09)
[2020-08-06] MEDS: aztreonam 2,000 MG in sodium chloride 0.9% (plus) 100 ML 200 MG IV ×2 (09:09→20:14)
[2020-08-06] MEDS: clopidogrel 75 mg Tablet PO (09:31)
--- NOTE | 2020-08-06 10:36 | PC.NURSE ---
0745 Dr. Jolly at bedside. Discussed vital signs. Plan to DC Impella when Casey drip is off and BP is stable.Orders to decrease Amio drip to 0.5 mg/min. 0750 Dr. Burgess at bedside. Reported lab unable to obtain second blood culture at this time, will continue to try. Orders to hold ABX until blood culture drawn. [address] Jolly to report LFT results and clarify Amio orders. [address] Jolly. Reported LFT results. Orders to hold PO Amio until he rounds on the patient. 0979 Dr. Jolly at bedside . Orders to change PO Amio dose to 200 mg BID, turn Amio drip off 2 hours after PO given. Impella rep at bedside. Purge fluid changed.
[2020-08-06] MEDS: amiodarone 200 mg Tablet PO ×2 (10:47→17:14)
[2020-08-06] MEDS: morphine 4 mg/mL SDV 1 mL 2 MG IVP ×2 (10:47→15:11)
--- NOTE | 2020-08-06 10:50 | P.PN_ITS ---
Subjective Subjective: Interval history: Patient was seen and examined in ICU, status post repositioning of Impella device, normotensive, Blood sugar within normal range today however he has not been able to eat much in last 24 hours Noticed worsening of leukocytosis and anemia, however he has stayed afebrile currently on folded nasal cannula for pulmonary edema Started on aztreonam and vancomycin renally dose, has penicillin allergy Requested blood culture, urine culture, chest x-ray consistent with pulmonary edema Dr. Jolly is aware Vitals/I&O/Wt Last Vital Signs Temp 98.1 F 08/06/20 07:00 Pulse 78 08/06/20 10:30 Resp 22 H 08/06/20 10:47 BP 105/75 08/06/20 10:30 Pulse Ox 93 08/06/20 10:47 08/05/20 08/06/20 08/06/20 22:59 06:59 14:59 Intake Total 1727.059 / 2802.059 1033.333 / 3835.392 999.70 / 999.70 Output Total 427 / 562 359 / 921 350 / 350 Balance 1300.059 / 2240.059 674.333 / 2914.392 649.70 / 649.70 Physical Exam Narrative: EXAM NARRATIVE: Patient was laying supine orthopnea was saturating well on 4 L nasal cannula Did not endorse new complaints S1, S2 no murmur appreciated Bilateral breath sounds with mild rhonchi at the bases No acute respite distress Awake alert oriented x3 GCS 15 Abdomen soft nontender bowel sound present Right groin with Impella device Lower extremity no vascular compromise Cantu catheter draining clear concentrated urine Do not see any change in pupillary size No acute neurological deficit Urinary Catheter Management^: Cantu: Cath Placed During This Visit: yes Reason for Continuing Indwelling Catheter: Accurate Measurement of Urinary Output in Critically Ill Patients Urinary Catheter Date of Insertion: 08/05/20 Urinary Catheter Time of Insertion: 00:35 Data : 08/06/20 03:10 08/06/20 03:10 Micro: Microbiology 08/06/20 08:58 Blood Culture - Preliminary Blood SPECIMEN COLLECTED 08/06/20 07:30 Blood Culture - Preliminary Blood SPECIMEN COLLECTED A&P Assessment and plan (1) Sepsis: Status: Acute (2) Atrial fibrillation with RVR: Status: Acute (3) Ventricular tachycardia: Status: Acute (4) Pulmonary edema: Status: Acute (5) UTI (urinary tract infection): Status: Acute (6) Type 2 diabetes mellitus: Status: Acute (7) STEMI (ST elevation myocardial infarction): Status: Acute Additional A&P Information Sepsis Noticed worsening leukocytosis with tachypnea No source has been identified however he presented with dysuria on day 1 which resolved I will start him on vancomycin and aztreonam because of penicillin allergy, patient reporting anaphylactic reaction to penicillin Requested urine culture, blood culture chest x-ray consistent with pulmonary edema, he has stayed afebrile, will obtain lactic acid Late MN currently on Impella device due to hypotension/pulmonary edema Patient underwent PCI of left main/diagonal/left circumflex with Impella assisted procedure He tolerated procedure well, Impella was repositioned by cardiology His blood pressure slightly better today as compared to last 24 hours Notice worsening anemia Consider blood transfusion if hemoglobin stays below 8 once his pulmonary edema improved No active chest pain shortness of breath, patient is able to lay flat no orthopnea Management as per cardiology Type 2 diabetes Today noticed his blood sugar within target range however he has not been able to eat much, his persistent hyperglycemia seems secondary to stress reaction to underlying cardiac etiology which could very well be contributing to leukocytosis alone I would continue on similar insulin regimen, hemoglobin A1c 9.3 Currently he is getting 6 units premeals along moderate sliding scale and 20 units of Lantus, if he is not eating well and blood sugar stays below 150s I would recommend discontinuing his premeal scheduled insulin UTI: Patient not complaining of dysuria urine analysis unremarkable With sepsis diagnosis requested urine culture Full code Cardiac diet DVT prophylaxis as per cardiology Attestations Medical Necessity Statement*: As per cardiology Time Spent in Patient Care: 30mins Coding Level of Care Code Acute Privacy Director for [facility] Fwd Diagnoses Sepsis A41.9 Atrial fibrillation with RVR I48.91 Ventricular tachycardia I47.2 Pulmonary edema J81.1 UTI (urinary tract infection) N39.0 Type 2 diabetes mellitus E11.9 STEMI (ST elevation myocardial infarction) I21.3
[2020-08-06 10:59] LABS: Glucose Point of Care 196 mg/dL (70-110)
[2020-08-06 14:35] LABS: Partial Thromboplastin Time 53.2 SECONDS (23.9-36.7)
--- NOTE | 2020-08-06 15:39 | PC.NURSE ---
1450 PTT resulted. Heparin gtt restarted, IV administration at 5 ml/hr and purge flow rate at 15 ml/hr to eqaul protocol dose of 20 ml/hr. Cosigned with charge nurse.
--- NOTE | 2020-08-06 16:09 | ECG_ITS ---
[facility] Test Date: 2020-08-06 Pat Name: Ze Waite Department: Room: ICU10 Gender: Male Fisher Spear: : 1945 Requested By: Betito Jolly Order Number: [id number] Eboni MD: Tate Iglseias M.D. Measurements Intervals [place] Rate: 70 P: 44 WI: 189 QRS: 257 QRSD: 145 T: 40 QT: 466 QTc: 504 Interpretive Statements SINUS RHYTHM MARKED RIGHT AXIS DEVIATION [QRS AXIS > 100] RIGHT BUNDLE BRANCH BLOCK [120+ ms QRS DURATION, UPRIGHT V1, 40+ ms S IN I/aVL/V4/V5/V6] ST DEPRESSION, CONSIDER SUBENDOCARDIAL INJURY [0.1+ mV ST DEPRESSION] Compared to ECG 08/04/2020 20:14:10 ST (T wave) deviation now present Electronically Signed On 08-07-2020 23:22:30 CDT by Tate Iglesias M.D. [email or web address].[email or web address]/store/[id number]
--- NOTE | 2020-08-06 16:40 | PC.NURSE ---
[address] Jolly to report rhythm change to trigeminy. States he will round on the patient. 1610 Dr. Jolly at bedside. Orders for EKG. Family in room. Updated per Dr. Jolly on labs, vitals, and plan of care.
[2020-08-06 17:04] LABS: Glucose Point of Care 104 mg/dL (70-110)
--- NOTE | 2020-08-06 18:23 | PM.PN ---
Subjective Subjective: Interval history: Patient is feeling well. Denies any complaints of chest pain, shortness of breath or palpitations. He is uncomfortable because of the Impella. No more bleeding episode from Impella. Liver enzymes are significantly elevated likely secondary to shock liver. Vitals/I&O/Wt Last Vital Signs Temp 98.2 F 08/06/20 15:00 Pulse 68 08/06/20 18:15 Resp 16 08/06/20 18:15 BP 89/58 08/06/20 18:15 Pulse Ox 95 08/06/20 18:15 08/06/20 08/06/20 08/06/20 06:59 14:59 22:59 Intake Total 1033.333 / 3835.392 1657.558 / 3614.681 7311.667 / 2774.225 Output Total 359 / 921 540 / 540 250 / 790 Balance 674.333 / 2914.392 1117.558 / 1117.558 866.667 / 1984.225 Physical Exam Narrative: EXAM NARRATIVE: NARRATIVE: Alert and oriented x 3 Tachycardic, irregularly irregular,S1, S2, has grade 3/6 systolic murmur No acute respiratory distress, significant crackles bilaterally Abdomen is soft nontender EOMI No neurological deficit No lower extremity edema Appropriate mood and affect Urinary Catheter Management^: Cantu: Cath Placed During This Visit: yes Reason for Continuing Indwelling Catheter: Accurate Measurement of Urinary Output in Critically Ill Patients Urinary Catheter Date of Insertion: 08/05/20 Urinary Catheter Time of Insertion: 00:35 Data : 08/07/20 02:00 08/07/20 02:00 Micro: Microbiology 08/06/20 08:58 Blood Culture - Preliminary Blood SPECIMEN COLLECTED 08/06/20 07:30 Blood Culture - Preliminary Blood SPECIMEN COLLECTED A&P Assessment and plan (1) NSTEMI (non-ST elevated myocardial infarction): Status: Acute (2) Type 2 diabetes mellitus: Status: Acute (3) Hypertension: Status: Acute (4) UTI (urinary tract infection): Status: Acute (5) Ventricular tachycardia: Status: Acute (6) Atrial fibrillation with RVR: Status: Acute (7) Cardiogenic shock: Status: Acute Patient presented late with acute MN evidenced by significantly elevated troponin that trended down and spontaneous temporary chest pain resolution. Coronary angiogram demonstrated, likely culprit was SVG to OM/diagonal that is ostially occluded. SVG to RCA is occluded as well. COBB to LAD is patent. Patient underwent attempt for PCI of LCx/left main artery. Patient became unstable with engagement of guide catheter. Patient's pressure dampened. We were able to perform balloon angioplasty of the LCx that improved flow significantly in LCx(left main not ballooned). However patient developed pulmonary edema and could not stay still. He also went in afib with RVR. We decided to stop procedure there and stabilize patient with diuresis and rate control. Patient was sent back to CSU. In the PM, patient became tachycardia with wide complex tachycardia secondary to VT. Patient did not lose pulse or became unconscious. He became hypotensive with significant chest pain. He was cardioverted x 2 with successful return to normal sinus rhythm. Patient was started on Lidocaine gtt and amiodarone gtt Patient was unstable with recurrent VT, chest pain and pulmonary edema. Given his severely reduced LV systolic function, marked dampening of pressures with left main engagement, ischemic myocardium other than COBB/LAD territory, we decided to perform high risk PCI of left main/diagonal/left circumflex artery. This was Impella assisted procedure. Patient did well during the procedure. We left the Impella in as patient was still hypotensive post procedure. Likely will remove Impella tomorrow if patient stays hemodynamically stable. Continue aspirin and Plavix High intensity statin therapy Restart heparin drip Amio gtt switched to PO amio 200mg BID Liver enzymes demonstrating shock liver Hold [facility] Hospitalist service assisting with management of medical issues. Appreciate input ECHO shows severely reduced systolic function with EF of 30-35% Attestations Medical Necessity Statement*: Patient expected to cross 2 midnights. Patient requiring impella and pressor support to maintain blood pressure. Coding Level of Care Code Acute Diesel Truck Crane Operator for [facility] Fw Diagnoses NSTEMI (non-ST elevated myocardial infarction) I21.4 Type 2 diabetes mellitus E11.9 Hypertension I10 UTI (urinary tract infection) N39.0 Ventricular tachycardia I47.2 Atrial fibrillation with RVR I48.91 Cardiogenic shock R57.0
--- NOTE | 2020-08-06 18:35 | ECG_ITS ---
[facility] Test Date: 2020-08-06 Pat Name: Ze Waite Department: Room: ICU10 Gender: Male Supervisor Electron Tube Processing: : 1945 Requested By: Betito Jolly Order Number: [id number] Eboni MD: Tate Iglesias M.D. Measurements Intervals [place] Rate: 69 P: [place]: QRS: -77 QRSD: 144 T: 100 QT: 405 QTc: 436 Interpretive Statements Sinus rhythm with right bundle branch block pattern. Frequent PVCs in the form of trigeminy Features of RVH MARKED LEFT AXIS DEVIATION [QRS AXIS < -30] RIGHT BUNDLE BRANCH BLOCK [120+ ms QRS DURATION, UPRIGHT V1, 40+ ms S IN I/aVL/V4/V5/V6] ST DEVIATION AND MODERATE T-WAVE ABNORMALITY, CONSIDER LATERAL ISCHEMIA [-0.1+ mV T WAVE IN I/aVL/V5/V6] Compared to ECG 08/06/2020 16:13:27 Ventricular premature complex(es) now presentAberrant conduction of supraventricular beat(s) now presentLeft-axis deviation now present.T-wave abnormality now presentPossible ischemia now present.Sinus rhythm no longer presentRight-axis deviation no longer present.ST (T wave) deviation no longer present Electronically Signed On 08-07-2020 23:07:28 CDT by Tate Iglesias M.D. [id number]
[2020-08-06 19:22] LABS: Hematocrit 26.9 % (42.0-52.0)
--- NOTE | 2020-08-06 19:29 | PC.NURSE ---
Refer to EKG for results, Made aware
[2020-08-06 19:50] LABS: Partial Thromboplastin Time 67.2 SECONDS (23.9-36.7)
[2020-08-06 19:57] LABS: Blood Urea Nitrogen 29 mg/dL (8-23); Calcium 7.1 mg/dL (8.5-10.5); Carbon Dioxide 18 mmol/L (22-29); Chloride 105 mmol/L (98-107); Glucose 103 mg/dL (65-115); Osmolality Calculated 278 mOsm/kg (285-295); Sodium 131 mmol/L (136-145)
[2020-08-06 20:06] LABS: Glucose Point of Care 112 mg/dL (70-110)
[2020-08-06] MEDS: insulin glargine 100 units/1 mL 20 UNIT SUBCUT (20:14)
[2020-08-06] MEDS: atorvastatin 40 mg Tablet PO (20:15)
[2020-08-06] MEDS: temazepam 15 mg Capsule PO (20:15)
[2020-08-07] VITALS (96 sets, daily range): BP systolic 83–115; BP diastolic 47–73; PULSE 63–111; RESP 16–24; TEMP 36.3–36.9; O2SAT 90–100
[2020-08-07 02:15] LABS: Basophils % 0.2 %; Eosinophils # 0.1 10^3/uL (0.0-0.8); Eosinophils % 0.3 %; Hematocrit 27.6 % (42.0-52.0); Lymphocytes # 1.4 10^3/uL (0.8-4.8); Lymphocytes % 8.5 %; Mean Corpuscular HGB Conc 32.6 g/dL (30.0-36.0); Mean Corpuscular Hemoglobin 28.5 pg (28.0-34.0); Mean Corpuscular Volume 87.3 fL (80-94); Mean Platelet Volume 11.1 fL (7.4-10.4); Monocytes # 1.8 10^3/uL (0.2-0.9); Monocytes % 10.9 %; Neutrophils # 12.77 10^3/uL (1.8-7.7); Neutrophils % 78.9 %; Nucleated Red Blood Cells % 0 %; Platelet Count 154 10^3/cmm (130-400); Red Blood Count 3.16 10^6/uL (4.1-5.3); Red Cell Distribution Width 13.5 % (12.1-15.1); White Blood Count 16.2 10^3/uL (4.0-10.0)
[2020-08-07 02:35] LABS: Partial Thromboplastin Time 63.5 SECONDS (23.9-36.7)
[2020-08-07 02:43] LABS: Albumin Level 2.1 g/dL (3.5-5.2); Alkaline Phosphatase 60 IU/L (40-130); Anion Gap 12.9 (5-19); Blood Urea Nitrogen 26 mg/dL (8-23); Calcium 7.1 mg/dL (8.5-10.5); Carbon Dioxide 18 mmol/L (22-29); Chloride 105 mmol/L (98-107); Globulin 2.7 g/dL (1.3-4.6); Glucose 133 mg/dL (65-115); Osmolality Calculated 281 mOsm/kg (285-295); Potassium 3.9 mmol/L (3.5-5.1); Sodium 132 mmol/L (136-145); Total Bilirubin 0.6 mg/dL (0.15-1.2); Total Protein 4.8 g/dL (6.6-8.7)
[2020-08-07] MEDS: vancomycin 1,000 MG in sodium chloride 0.9% 250 ML 250 MG IV ×2 (02:56→20:15)
[2020-08-07] MEDS: sodium chloride 0.9% 1,000 ML 100 ML IV (02:57)
[2020-08-07 03:01] LABS: Alanine Aminotransferase 2098 U/L (0-41)
[2020-08-07 03:02] LABS: Aspartate Amino Transferase 870 U/L (0-40)
[2020-08-07 07:10] LABS: Glucose Point of Care 146 mg/dL (70-110)
[2020-08-07] MEDS: aztreonam 2,000 MG in sodium chloride 0.9% (plus) 100 ML 200 MG IV ×2 (08:03→20:08)
[2020-08-07] MEDS: clopidogrel 75 mg Tablet PO (08:04)
[2020-08-07] MEDS: aspirin 81 mg EC Tablet PO (08:04)
[2020-08-07] MEDS: amiodarone 200 mg Tablet PO ×2 (08:04→17:17)
[2020-08-07 08:24] LABS: Partial Thromboplastin Time 66.2 SECONDS (23.9-36.7)
[2020-08-07] MEDS: ondansetron 2 mg/ML SDV 2 mL 4 MG IVP (08:50)
--- NOTE | 2020-08-07 09:30 | PC.NURSE ---
[address] Jolly. He discussed with the patient his lab results, including LFTs, kidney function, and WBC. Plan to go to track laborer today to have the Impella removed. NPO except ice chip from now until after Impella removed. States he will let nursing know time of procedure so heparin drip can be turned off a head of time. Discussed mild shortness of breath and fluid balance. [address] Jolly to clarify Impella P weening. Orders to slowly ween P to 4 as tolerated. 0915 Turned Implella P to 5.
--- NOTE | 2020-08-07 10:25 | XR_ITS ---
WS: [id number] XR chest 1V 69105 REASON FOR EXAM: pulmonary edema FINDINGS: The diagnostic capability of the images degraded by large amount of overlying artifact. Cardiac silhouette is at the upper limits of normal in size. There are infiltrative changes centrally in both lungs which appear more dense and confluent than on the previous examination of 08/04/2020. Likely there are small bilateral pleural effusions. XR/XR chest 1V 02039 IMPRESSION: Abnormal chest possibly with interval progression as above.
--- NOTE | 2020-08-07 10:26 | PM.PN ---
Subjective Subjective: Interval history: Afebrile, leukocytosis at 16, AST 870 from 2700, ALT 2098 from 2400 , T. bili normal Vitals/I&O/Wt Last Vital Signs Temp 97.9 F 08/07/20 07:00 Pulse 79 08/07/20 09:00 Resp 16 08/07/20 09:00 BP 96/53 08/07/20 09:00 Pulse Ox 94 08/07/20 09:00 08/06/20 08/07/20 08/07/20 22:59 06:59 14:59 Intake Total 1323.239 / 2980.797 1086.972 / 4067.769 250 / 250 Output Total 250 / 790 552 / 1342 145 / 145 Balance 1073.239 / 2190.797 534.972 / 2725.769 105 / 105 Physical Exam Urinary Catheter Management^: Cantu: Cath Placed During This Visit: yes Reason for Continuing Indwelling Catheter: Accurate Measurement of Urinary Output in Critically Ill Patients Urinary Catheter Date of Insertion: 08/05/20 Urinary Catheter Time of Insertion: 00:35 Data : 08/07/20 02:00 08/07/20 02:00 Micro: Microbiology 08/06/20 07:55 Urine Culture - Preliminary Urine Catheterized Gram Negative Rods 08/06/20 08:58 Blood Culture - Preliminary Blood NEGATIVE TO DATE 08/06/20 07:30 Blood Culture - Preliminary Blood NEGATIVE TO DATE A&P Assessment and plan (1) Sepsis: Status: Acute (2) Atrial fibrillation with RVR: Status: Acute (3) Ventricular tachycardia: Status: Acute (4) Pulmonary edema: Status: Acute (5) UTI (urinary tract infection): Status: Acute (6) Type 2 diabetes mellitus: Status: Acute (7) STEMI (ST elevation myocardial infarction): Status: Acute Additional A&P Information Sepsis Noticed worsening leukocytosis with tachypnea Source under evalution, UA + from admission day, urine cx with GNR s/t aztreonam. Rpt urine cx 08/06 with GNR. Continue vancomycin and aztreonam because of penicillin allergy, patient reporting anaphylactic reaction to penicillin blood culture from 08/06 NGTD chest x-ray consistent with pulmonary edema from 08/04 Late [place] currently on Impella device due to hypotension/pulmonary edema Patient underwent PCI of left main/diagonal/left circumflex with Impella assisted procedure He tolerated procedure well, Impella was repositioned by cardiology complic ated by [facility], currently on po amiodarone Management as per cardiology including diuresis management Type 2 diabetes Fingersticks well controlled currently continue on similar insulin regimen, hemoglobin A1c 9.3 Currently he is getting 6 units premeals along moderate sliding scale and 20 units of Lantus Transaminitis, likely from shock liver, stable today Full code Cardiac diet DVT prophylaxis as per cardiology Attestations Medical Necessity Statement*: requires impella for hemodynamic management Coding Level of Care Code Acute Solar 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
[2020-08-07] MEDS: morphine 4 mg/mL SDV 1 mL 2 MG IVP (11:05)
[2020-08-07] MEDS: FUROsemide 10 mg/mL SDV 2mL 20 MG IVP (11:20)
[2020-08-07 11:32] LABS: Magnesium 2.2 mg/dL (1.7-2.3); NT Pro B Type Natriuretic Pept 11058 pg/mL (0-125)
[2020-08-07 11:37] LABS: Glucose Point of Care 172 mg/dL (70-110)
--- NOTE | 2020-08-07 12:28 | ECG_ITS ---
[facility] Test Date: 2020-08-07 Pat Name: Ze Waite Department: Room: ICU10 Gender: Male Roguer: : 1945 Requested By: Betito Jolly Order Number: [id number] Eboni MD: Tate Iglesias M.D. Measurements Intervals [place] Rate: 103 P: [place]: QRS: 152 QRSD: 209 T: -44 QT: 407 QTc: 533 Interpretive Statements Sinus bradycardia with a frequent PVCs, in the form of couplets INTRAVENTRICULAR CONDUCTION DELAY [130+ ms QRS DURATION] POSSIBLE RIGHT VENTRICULAR HYPERTROPHY [SOME/ALL OF: PROMINENT R IN V1, LATE TRANSITION, RAD, GRETA, SSS] ANTEROLATERAL MYOCARDIAL INFARCTION [40+ ms Q WAVE IN I/aVL/V3-V6], OF INDETERMINATE AGE Compared to ECG 08/06/2020 18:42:42 Intraventricular conduction delay now presentMyocardial infarct finding now presentAtrial flutter no longer presentVentricular premature complex(es) no longer presentAberrant conduction of supraventricular beat(s) no longer present Left-axis deviation no longer presentRight bundle-branch block no longer present T-wave abnormality no longer present Possible ischemia no longer present Electronically Signed On 08-07-2020 23:26:12 CDT by Tate Iglesias M.D. [email or web address].[employer]/store/[id number]
[2020-08-07] MEDS: lidocaine drip 2,000 MG/500 ML PREMIX 30 MG IV (13:07)
--- NOTE | 2020-08-07 13:54 | W.PM.OPSUD ---
Surgery/Procedure H&P Update DATE OF PROCEDURE: August 07, 2020 DATE H&P PERFORMED: 08/02/20 H&P UPDATE INFORMATION: I have reviewed H&P completed within last 30 days, I have examined patient prior to procedure and No changes to prior documentation PREOP DIAGNOSIS: NSTEMI/ Ventricular tachycardia PRIMARY INDICATION FOR PROCEDURE: NSTEMI/ Ventricular tachycardia PLANNED PROCEDURE: Date of procedure: 08/07/2020: Impella removal PATIENT REASSESSED PRIOR TO SEDATION, WITH NO CHANGE NOTED: Yes PHYSICAL EXAM: alert, oriented x 3 and clear to auscultation bilaterally AIRWAY EVAL/ANESTHESIA PLAN: ASA III, Risks, benefits & alternatives of sedation and/or procedure discussed and Patient agrees to continue as planned
--- NOTE | 2020-08-07 15:35 | PC.NURSE ---
[address] Jolly to report heart rhythm change and blood pressure/MAP. Orders to turn Heparin drip off at 1130 in preparation for calibration laboratory technician removal of Impella. 1040 Dr. Chaney at bedside. Chest x-ray obtained, reviewed with doctor. Reviewed medications, IV drips, heart rhythm, vital signs, and IVF. Orders for Mag level, add to blood from AM. [address] Jolly to report rhythm change. 1055 Reported patient c/o of chest pressure and shortness of breath to Dr. Jolly. Orders to start Amio drip at 0.5 mg/min. Give 20mg IV lasix, stop IVF, draw PBNP. 1100 Increased P level on Impella to 6. 1225 Dr. Jolly at bedside. Reviewed heart rhythm and medications. Orders for Lidocaine drip and to turn off Amio drip 2 hours after initiation of Lidocaine. Continue PO amio 200 mg BID. Obtain EKG. P level on Impella decreased to [address] Jolly. 1345 Patient to calibration laboratory technician with RN. 1435 Patient back to room from calibration laboratory technician. 1445 Dr. Jolly at bedside. Orders to apply gauze and tegaderm to Impella removal site. Dressing applied as ordered.
[2020-08-07 17:10] LABS: Glucose Point of Care 140 mg/dL (70-110)
--- NOTE | 2020-08-07 17:50 | PM.PN ---
Subjective Subjective: Interval history: Patient has been doing well. His renal function is normal. Denies chest pain or shortness of breatth. Weaned impella to P 3 and blood pressure stayed stable. Impella removed in laborer bituminous paving with successful deployment of Percloses. He had some crackles afterwards. IV fluids stopped and patient given 20mg IV lasix. Vitals/I&O/Wt Last Vital Signs Temp 97.9 F 08/07/20 15:00 Pulse 78 08/07/20 17:15 Resp 18 08/07/20 17:15 BP 103/63 08/07/20 17:15 Pulse Ox 92 08/07/20 17:15 08/07/20 08/07/20 08/07/20 06:59 14:59 22:59 Intake Total 1086.972 / 4067.769 1374.854 / 1374.854 117.182 / 1492.036 Output Total 552 / 1342 1470 / 1470 300 / 1770 Balance 534.972 / 2725.769 -95.146 / -95.146 -182.818 / -277.964 Physical Exam Narrative: EXAM NARRATIVE: NARRATIVE: Alert and oriented x 3 Tachycardic, irregularly irregular,S1, S2, has grade 3/6 systolic murmur No acute respiratory distress, significant crackles bilaterally Abdomen is soft nontender EOMI No neurological deficit No lower extremity edema Appropriate mood and affect Urinary Catheter Management^: Cantu: Cath Placed During This Visit: yes Reason for Continuing Indwelling Catheter: Accurate Measurement of Urinary Output in Critically Ill Patients Urinary Catheter Date of Insertion: 08/05/20 Urinary Catheter Time of Insertion: 00:35 Data : 08/08/20 05:10 08/08/20 05:10 Micro: Microbiology 08/06/20 07:55 Urine Culture - Preliminary Urine Catheterized Gram Negative Rods 08/06/20 08:58 Blood Culture - Preliminary Blood NEGATIVE TO DATE 08/06/20 07:30 Blood Culture - Preliminary Blood NEGATIVE TO DATE A&P Assessment and plan (1) NSTEMI (non-ST elevated myocardial infarction): Status: Acute (2) Type 2 diabetes mellitus: Status: Acute (3) Hypertension: Status: Acute (4) UTI (urinary tract infection): Status: Acute (5) Ventricular tachycardia: Status: Acute (6) Atrial fibrillation with RVR: Status: Acute (7) Cardiogenic shock: Status: Acute Patient presented late with acute DC evidenced by significantly elevated troponin that trended down and spontaneous temporary chest pain resolution. Coronary angiogram demonstrated, likely culprit was SVG to OM/diagonal that is ostially occluded. SVG to RCA is occluded as well. COBB to LAD is patent. Patient underwent attempt for PCI of LCx/left main artery. Patient became unstable with engagement of guide catheter. Patient's pressure dampened. We were able to perform balloon angioplasty of the LCx that improved flow significantly in LCx(left main not ballooned). However patient developed pulmonary edema and could not stay still. He also went in afib with RVR. We decided to stop procedure there and stabilize patient with diuresis and rate control. Patient was sent back to CSU. In the PM, patient became tachycardia with wide complex tachycardia secondary to VT. Patient did not lose pulse or became unconscious. He became hypotensive with significant chest pain. He was cardioverted x 2 with successful return to normal sinus rhythm. Patient was started on Lidocaine gtt and amiodarone gtt Patient was unstable with recurrent VT, chest pain and pulmonary edema. Given his severely reduced LV systolic function, marked dampening of pressures with left main engagement, ischemic myocardium other than COBB/LAD territory, we decided to perform high risk PCI of left main/diagonal/left circumflex artery. This was Impella assisted procedure. Patient did well during the procedure. We left the Impella in as patient was still hypotensive post procedure. As patient was hemodynamically stable now, we have removed impella today. He has some crackles and CXR showing volume overload, IV fluids held and patient given lasix 20mg IV Check Lactate in AM Continue aspirin and Plavix High intensity statin therapy Continue heparin drip Amio gtt switched to PO amio 200mg BID On Lidocaine gtt Liver enzymes demonstrated shock liver. Improving Hospitalist service assisting with management of medical issues. Appreciate input. Patient receiving antbiotics ECHO shows severely reduced systolic function with EF of 30-35% Attestations Medical Necessity Statement*: Care expected to cross 2 midnights. Patient in cardiogenic shock post late presentation of DC. Patient revascularize with MONIQUE x 3. Still volume overloaded and requiring ICU care. Coding Level of Care Code Acute Assistant Superintendent for [facility] Diagnoses NSTEMI (non-ST elevated myocardial infarction) I21.4 Type 2 diabetes mellitus E11.9 Hypertension I10 UTI (urinary tract infection) N39.0 Ventricular tachycardia I47.2 Atrial fibrillation with RVR I48.91 Cardiogenic shock R57.0
[2020-08-07 19:10] LABS: Partial Thromboplastin Time 32.6 SECONDS (23.9-36.7)
[2020-08-07 19:20] LABS: Vancomycin Trough 5.9 ug/mL (10-15)
[2020-08-07 20:06] LABS: Glucose Point of Care 152 mg/dL (70-110)
[2020-08-07] MEDS: insulin glargine 100 units/1 mL 20 UNIT SUBCUT (20:08)
[2020-08-07] MEDS: temazepam 15 mg Capsule PO (20:14)
[2020-08-07] MEDS: atorvastatin 40 mg Tablet PO (20:14)
[2020-08-07] MEDS: calcium carbonate 500 mg Chew Tablet PO (20:15)
[2020-08-08] VITALS (34 sets, daily range): BP systolic 87–107; BP diastolic 56–71; PULSE 66–83; RESP 16–32; TEMP 36.1–36.6; O2SAT 89–97
--- NOTE | 2020-08-08 01:45 | PC.NURSE ---
Patient states he is feeling increasing anxious and is requesting something to help him relax and rest. Provided patient with PRN XANAX for anxiety.
[2020-08-08] MEDS: acetaminophen 325 mg Tablet 650 MG PO (01:48)
[2020-08-08] MEDS: ALPRAZolam 0.25 mg Tablet PO (01:48)
[2020-08-08 02:46] LABS: Partial Thromboplastin Time 53.3 SECONDS (23.9-36.7)
--- NOTE | 2020-08-08 03:00 | PC.NURSE ---
Patient is able to communicate person, place, and time but is experiencing episodes of hallucinations but remains easily re-oriented at this time.
[2020-08-08] MEDS: heparin 5,000 unit/mL INJ 1 mL IV (03:18)
--- NOTE | 2020-08-08 05:44 | ECG_ITS ---
[facility] Test Date: 2020-08-08 Pat Name: Ze Waite Department: Room: ICU10 Gender: Male Classifying Machine Operator: : [id number] Requested By: Briana Blevins Order Number: [id number] Eboni MD: Kiarra Michel M.D. Measurements Intervals Marydel Rate: 76 P: 32 VT: 195 QRS: 232 QRSD: 169 T: -19 QT: 423 QTc: 478 Interpretive Statements SINUS RHYTHM MARKED RIGHT AXIS DEVIATION [QRS AXIS > 100] RIGHT BUNDLE BRANCH BLOCK [120+ ms QRS DURATION, UPRIGHT V1, 40+ ms S IN I/aVL/V4/V5/V6] Compared to ECG 08/07/2020 12:38:39 Right-axis deviation now present Right bundle-branch block now present Sinus bradycardia no longer present Ventricular premature complex(es) no longer present Intraventricular conduction delay no longer present Atrial abnormality no longer present Myocardial infarct finding no longer present Electronically Signed On 08-10-2020 13:04:36 CDT by Kiarra Michel M.D. [id number]
--- NOTE | 2020-08-08 05:46 | XRR_ITS ---
PROCEDURE INFORMATION: Exam: XR Chest Exam date and time: 08/08/2020 5:47 AM Age: 74 years old Clinical indication: Tachypnea; Additional info: Tachynpea, altered mental status TECHNIQUE: Imaging protocol: XR of the chest Views: 1 view. COMPARISON: CR XR chest 1V [id number] 08/07/2020 10:38 AM FINDINGS: Lungs: Bilateral prominent airspace consolidations. Pleural spaces: Bilateral pleural effusions. No evidence of pneumothorax. Heart/Mediastinum: Cardiomediastinal silhouette is similar. Bones/joints: Postoperative sternotomy. XR/XR chest 1V portable [id number] IMPRESSION: 1. Persistent bilateral prominent airspace consolidations which could reflect pneumonia or edema. 2. Likely presence of pleural effusions with poor delineation of the hemidiaphragms increased compared to previous.
--- NOTE | 2020-08-08 05:49 | PC.NURSE ---
Notified MD of patient's increased respiratory workload and increased confusion. Orders received for chest x-ray, EKG, and ABG, Respiratory notified. Awaiting morning labs. Lung sounds remain clear to diminished, tachypnea with a respiratory rate around 24 breaths per minute, increased non-pitting edema recognized in b/l.
[2020-08-08 05:55] LABS: ABG PCO2 27.4 mmHg (35-45); ABG PH Result 7.38 (7.35-7.45); Base Excess ABG -7.8 mmol/L (-2.0-2.0); Blood Gas Sample Type Arterial; HCO3 ABG 16.2 mmol/L (22-26); PO2 ABG 61.3 mmHg (80.0-100.0)
[2020-08-08 05:55] LABS: Basophils % 0.2 %; Eosinophils % 0.1 %; Hematocrit 30.2 % (42.0-52.0); Hemoglobin 9.5 g/dL (11.7-16.6); Lymphocytes # 0.6 10^3/uL (0.8-4.8); Lymphocytes % 3.9 %; Mean Corpuscular HGB Conc 31.5 g/dL (30.0-36.0); Mean Corpuscular Hemoglobin 28.9 pg (28.0-34.0); Mean Corpuscular Volume 91.8 fL (80-94); Mean Platelet Volume 11.5 fL (7.4-10.4); Monocytes # 1.9 10^3/uL (0.2-0.9); Monocytes % 11.8 %; Neutrophils # 13.27 10^3/uL (1.8-7.7); Neutrophils % 81.4 %; Nucleated Red Blood Cells # 0.1 /100WBC; Nucleated Red Blood Cells % 0.4 %; Platelet Count 141 10^3/cmm (130-400); Red Blood Count 3.29 10^6/uL (4.1-5.3); Red Cell Distribution Width 13.6 % (12.1-15.1); White Blood Count 16.3 10^3/uL (4.0-10.0)
[2020-08-08 05:56] LABS: Blood Gas Operator Identificat HARKR; Blood Gas Sample Site Brachial, left; Oxygen Device NC
[2020-08-08] MEDS: lidocaine drip 2,000 MG/500 ML PREMIX 30 MG IV (05:56)
[2020-08-08] MEDS: heparin drip 25,000 UNIT/500 ML PREMIX 21 UNIT IV (05:57)
[2020-08-08 06:16] LABS: Anion Gap 19.5 (5-19); Blood Urea Nitrogen 32 mg/dL (8-23); Calcium 7.8 mg/dL (8.5-10.5); Carbon Dioxide 16 mmol/L (22-29); Chloride 100 mmol/L (98-107); Glucose 196 mg/dL (65-115); Osmolality Calculated 284 mOsm/kg (285-295); Potassium 4.5 mmol/L (3.5-5.1); Sodium 131 mmol/L (136-145)
[2020-08-08] MEDS: FUROsemide 10 mg/mL SDV 2mL 20 MG IVP (06:31)
[2020-08-08 06:34] LABS: Lactate (Lactic Acid level) 4.3 mmol/L (0.5-2.2)
--- NOTE | 2020-08-08 07:09 | PC.NURSE ---
Dr. Jolly updated on patient's current status. Order's received for 40 mg IV lasix in addition to Dr. Blevins's [address] Blevins notified of Dr. Jolly's orders and being updated on patient's status
[2020-08-08 07:16] LABS: Glucose Point of Care 226 mg/dL (70-110)
[2020-08-08] MEDS: FUROsemide 10 mg/mL SDV 4mL 40 MG IVP ×2 (07:20→12:06)
[2020-08-08] MEDS: aztreonam 2,000 MG in sodium chloride 0.9% (plus) 100 ML 200 MG IV ×2 (08:23→20:04)
[2020-08-08] MEDS: amiodarone 200 mg Tablet PO ×2 (08:25→17:24)
[2020-08-08] MEDS: aspirin 81 mg EC Tablet PO (08:25)
[2020-08-08] MEDS: clopidogrel 75 mg Tablet PO (08:25)
[2020-08-08] MEDS: ondansetron 2 mg/ML SDV 2 mL 4 MG IVP (09:11)
[2020-08-08 10:30] LABS: Partial Thromboplastin Time 77.4 SECONDS (23.9-36.7)
--- NOTE | 2020-08-08 10:41 | P.PN_ITS ---
Subjective Subjective: Interval history: c/o trouble breathing. difficult to awaken. Had resoril and xanax last night Vitals/I&O/Wt Last Vital Signs Temp 97.5 F L 08/08/20 07:00 Pulse 72 08/08/20 10:00 Resp 26 H 08/08/20 10:00 BP 105/67 08/08/20 10:00 Pulse Ox 90 08/08/20 10:00 08/07/20 08/08/20 08/08/20 22:59 06:59 14:59 Intake Total 631.302 / 2006.156 584.667 / 2590.823 700 / 700 Output Total 300 / 1770 375 / 2145 Balance 331.302 / 236.156 209.667 / 445.823 700 / 700 Physical Exam Narrative: EXAM NARRATIVE: In general patient appears his stated age of 74 he is in mild to moderate distress with shortness of breath. Heart: Regular rate and rhythm normal S1-S2 unable to auscultate murmur through wheezes Lungs: Diminished throughout bilateral inspiratory and expiratory wheezes noted GI:tender in the epigastrium no rebound rigidity or guarding normal bowel sounds Extremities: +1 pitting edema bilateral lower extremities skin patient is very pale with a mild yellowish hue Neuro patient is lethargic Urinary Catheter Management^: Cantu: Cath Placed During This Visit: yes Reason for Continuing Indwelling Catheter: Accurate Measurement of Urinary Output in Critically Ill Patients Urinary Catheter Date of Insertion: 08/05/20 Urinary Catheter Time of Insertion: 00:35 Data : 08/08/20 05:10 08/08/20 05:10 Micro: Microbiology 08/06/20 07:55 Urine Culture - Final Urine Catheterized Escherichia coli 08/06/20 08:58 Blood Culture - Preliminary Blood NEGATIVE TO DATE 08/06/20 07:30 Blood Culture - Preliminary Blood NEGATIVE TO DATE A&P Assessment and plan (1) Pulmonary edema: Pt's outpt only 700 after 60 mg lasix. Urine doesn't appear to represent heart failure. I would add albumin ac lasix due to 2.1 albumin. Status: Acute (2) UTI (urinary tract infection): due to Ecoli. Was on aztreonam. Changed to rocephin for pneumonia. Ecoli is sens to rocephin. Noted PCN allergy. Low cross reactivity. Status: Acute (3) Hypertension: stble Status: Acute (4) Type 2 diabetes mellitus: on SSI Status: Acute (5) Pneumonia due to suspected gram-negative bacteria: could be aspiration. RN noted event. add clindamycin. Status: Acute Attestations Medical Necessity Statement*: already met 2 MN. Remains critical. New p neumonia diagnosed. altered mental status Coding Level of Care Code Acute Chart Computer for [facility] Fwd Diagnoses Pulmonary edema J81.1 UTI (urinary tract infection) N39.0 Hypertension I10 Type 2 diabetes mellitus E11.9 Pneumonia due to suspected gram-negative bacteria J18.9
[2020-08-08] MEDS: ipratropium-albuterol 3 mL Neb INHALATION ×3 (11:08→23:18)
[2020-08-08] MEDS: vancomycin 1,000 MG in sodium chloride 0.9% 250 ML 250 MG IV ×2 (11:21→21:30)
[2020-08-08] MEDS: cefTRIAXone 1,000 MG in sodium chloride 0.9% (plus) 50 ML 100 MG IV (11:21)
[2020-08-08 11:23] LABS: Glucose Point of Care 223 mg/dL (70-110)
[2020-08-08] MEDS: clindamycin 600 MG/50 ML PREMIX 100 MG IV ×2 (11:23→18:26)
[2020-08-08 12:47] LABS: Basophils % 0.3 %; Eosinophils % 0.1 %; Hematocrit 29.1 % (42.0-52.0); Hemoglobin 9.2 g/dL (11.7-16.6); Lymphocytes # 0.8 10^3/uL (0.8-4.8); Lymphocytes % 4.8 %; Mean Corpuscular HGB Conc 31.6 g/dL (30.0-36.0); Mean Corpuscular Hemoglobin 28.8 pg (28.0-34.0); Mean Corpuscular Volume 91.2 fL (80-94); Mean Platelet Volume 12.1 fL (7.4-10.4); Monocytes # 1.8 10^3/uL (0.2-0.9); Monocytes % 11.4 %; Neutrophils # 12.69 10^3/uL (1.8-7.7); Neutrophils % 80.1 %; Nucleated Red Blood Cells # 0.1 /100WBC; Nucleated Red Blood Cells % 0.8 %; Platelet Count 134 10^3/cmm (130-400); Red Blood Count 3.19 10^6/uL (4.1-5.3); Red Cell Distribution Width 13.6 % (12.1-15.1); White Blood Count 15.8 10^3/uL (4.0-10.0)
[2020-08-08 13:06] LABS: Ammonia 19 umol/L (16-60)
[2020-08-08 13:20] LABS: Albumin Level 2.8 g/dL (3.5-5.2); Alkaline Phosphatase 92 IU/L (40-130); Blood Urea Nitrogen 35 mg/dL (8-23); Calcium 7.2 mg/dL (8.5-10.5); Carbon Dioxide 13 mmol/L (22-29); Chloride 99 mmol/L (98-107); Globulin 1.9 g/dL (1.3-4.6); Glucose 207 mg/dL (65-115); Magnesium 2.2 mg/dL (1.7-2.3); Osmolality Calculated 286 mOsm/kg (285-295); Sodium 131 mmol/L (136-145); Total Bilirubin 0.6 mg/dL (0.15-1.2); Total Protein 4.7 g/dL (6.6-8.7)
[2020-08-08 13:23] LABS: Lactate (Lactic Acid level) 6.4 mmol/L (0.5-2.2)
[2020-08-08 13:31] LABS: Alanine Aminotransferase 3219 U/L (0-41)
[2020-08-08 13:37] LABS: Aspartate Amino Transferase 1495 U/L (0-40)
--- NOTE | 2020-08-08 15:36 | PC.NURSE ---
[address] Dorman. Discussed medications, increasing oxygen requirements, and neuro status. Reviewed x-ray report. States she will review his ABX and make necessary changes. [address] Michel to reported patient's increasing decline in mental status. Clarified Lidocaine drip infusion. States she will come to see patient. 1155 Dr. Michel at bedside. Orders to decrease Lidocaine drip to 1 mg/min and 40 mg IV lasix. 1200 Orders to turn Lidocaine drip off and stat Ammonia, CBC, CMP, and Lactate. 1330 Dr. Michel at bedside reviewed lab results and neuro status.
--- NOTE | 2020-08-08 15:49 | PC.NURSE ---
1035 Dr. Moyer at bedside. Reviewed heart rhythm. Reported diarrhea, orders for rectal tube pre cath. Patient had a vagal reaction to rectal tube, immediately discontinued, heart rate returned to baseline. 1110 Patient to crime lab technician with crime lab technician staff. 1300 Patient back to room from crime lab technician. 1330 Dr. Michel at bedside. Reviewed pacemaker, heart rhythm, medications, and plan of care. 1415 Dr. Moyer at bedside. Reviewed crime lab technician events and plan of care.
[2020-08-08 16:18] LABS: Glucose Point of Care 190 mg/dL (70-110)
[2020-08-08 16:24] LABS: Partial Thromboplastin Time 64.9 SECONDS (23.9-36.7)
--- NOTE | 2020-08-08 17:22 | PC.NURSE ---
[address] Michel. Updated on patient's improved neuro status. Patient A&O, back to baseline. Reported PTT continue Heparin drip at this time. Reported improved respiratory status and O2 sat, orders to ween O2.
--- NOTE | 2020-08-08 19:48 | P.PN_ITS ---
Subjective Subjective: Interval history: I was called this morning by the nurse as he was confused. No ectopy on telemetry. He received lasix 60 mg IV x1 earlier this morning. Medications: Reviewed: Yes Medication Review Details: Current Medications Acetaminophen (Acetaminophen 325 Mg Tablet) 650 mg PO Q6H PRN PRN Reason: MILD PAIN Al Hydrox/Mg Hydrox/Simethicone (Kkjm-Ooh-Wrizdeatc-Mariama 30 Ml Udc) 30 ml PO Q15M PRN PRN Reason: INDIGESTION Albuterol/Ipratropium (Ipratropium-Albuterol 3 Ml Neb) 3 ml INHALATION Q4H.RESPIRATORY [facility] Last Admin: 08/08/20 16:30 Dose: Not Given Documented by: Amiodarone HCl (Amiodarone 200 Mg Tablet) 200 mg PO BID [facility] Last Admin: 08/08/20 17:24 Dose: 200 mg Documented by: Aspirin (Aspirin 81 Mg Ec Tablet) 81 mg PO DAILY [facility] Last Admin: 08/08/20 08:25 Dose: 81 mg Documented by: Atorvastatin Calcium (Atorvastatin 40 Mg Tablet) 40 mg PO BEDTIME [facility] Last Admin: 08/07/20 20:14 Dose: 40 mg Documented by: Atropine Sulfate (Atropine 1 Mg/Ml Sdv 1 Ml) 0.5 mg IVP PRN PRN PRN Reason: Symptomatic bradycardia Atropine Sulfate (Atropine 1 Mg/Ml Sdv 1 Ml) 0.5 mg IVP PRN PRN PRN Reason: Symptomatic bradycardia Calcium Carbonate (Calcium Carbonate 500 Mg Chew Tablet) 500 mg PO Q6H PRN PRN Reason: INDIGESTION Last Admin: 08/07/20 20:15 Dose: 500 mg Documented by: Clopidogrel Bisulfate (Clopidogrel 75 Mg Tablet) 75 mg PO DAILY [facility] Last Admin: 08/08/20 08:25 Dose: 75 mg Documented by: Dextrose (Dextrose 50% Syringe 50 Ml) 25 ml IVP ONCE PRN; Protocol PRN Reason: hypoglycemia protocol Dextrose (Dextrose 50% Syringe 50 Ml) 50 ml IVP PRN PRN; Protocol PRN Reason: hypoglycemia protocol Fentanyl (Fentanyl 50 Mcg/Ml Inj 2ml) 50 mcg IVP PRN PRN PRN Reason: PAIN Glucagon (Glucagon 1 Mg/Ml Inj 1 Ml) 1 mg IM ONCE PRN; Protocol PRN Reason: Adult Acute Hypoglycemia Prot. Heparin Sodium (Beef Lung) (Heparin 5,000 Unit/Ml Inj 1 Ml) 0 unit IV PRN PRN; Protocol PRN Reason: Heparin weight-base protocol Last Admin: 08/08/20 03:18 Dose: 1,400 unit Documented by: Dextrose (D5w) 500 mls @ 100 mls/hr IV ONCE PRN; Protocol PRN Reason: Adult Acute Hypoglycemia Prot Amiodarone HCl 900 mg/Dextrose/ IV Miscellaneous Supplies 518 mls @ 0 mls/hr IV .Q0M [facility]; Protocol Last Titration: 08/06/20 12:45 Dose: 0 mg/min, 0 mls/hr Documented by: Heparin Sodium/Sodium Chloride (Heparin Drip) 25,000 unit in 500 mls @ 0 mls/hr IV .Q0M [facility]; Protocol Last Titration: 08/08/20 10:35 Dose: 14.5 unit/kg/hr, 20 mls/hr Documented by: Aztreonam 2,000 mg/ Sodium (Chloride) 100 mls @ 200 mls/hr IV Q12H [facility]; Protocol Last Infusion: 08/08/20 12:32 Dose: Infused Documented by: Norepinephrine Bitartrate 4 mg (/ Dextrose) 254 mls @ 0 mls/hr IV .Q0M [facility]; Protocol Last Titration: 08/07/20 22:00 Dose: 0 mcg/min, 0 mls/hr Documented by: Amiodarone HCl 900 mg/Dextrose/ IV Miscellaneous Supplies 518 mls @ 0 mls/hr IV .Q0M [facility]; Protocol Last Titration: 08/07/20 15:05 Dose: 0 mg/min, 0 mls/hr Documented by: Vancomycin HCl 1,000 mg/ (Sodium Chloride) 250 mls @ 250 mls/hr IV Q12H [facility]; Protocol Last Infusion: 08/08/20 12:32 Dose: Infused Documented by: Ceftriaxone Sodium 1,000 mg/ (Sodium Chloride) 50 mls @ 100 mls/hr IV Q12H [facility]; Protocol Last Infusion: 08/08/20 12:33 Dose: Infused Documented by: Clindamycin HCl/Dextrose (Cleocin) 600 mg in 50 mls @ 100 mls/hr IV Q8H [facility]; Protocol Last Infusion: 08/08/20 18:59 Dose: Infused Documented by: Insulin Aspart (Insulin Aspart 100 Unit/1 Ml) 6 unit SUBCUT TIDAC [facility] Last Admin: 08/08/20 17:23 Dose: 6 unit Documented by: Insulin Aspart (Insulin Aspart 100 Unit/1 Ml) 0 unit SUBCUT WM&BEDTIME [facility]; Protocol Last Admin: 08/08/20 17:24 Dose: 6 unit Documented by: Insulin Glargine (Insulin Glargine 100 Units/1 Ml) 20 unit SUBCUT BEDTIME [facility] Last Admin: 08/07/20 20:08 Dose: 20 unit Documented by: Magnesium Hydroxide (Magnesium Hydroxide 30 Ml Udc) 30 ml PO DAILY PRN PRN Reason: CONSTIPATION Morphine Sulfate (Morphine 4 Mg/Ml Sdv 1 Ml) 2 mg IVP Q2H PRN PRN Reason: SEVERE PAIN Last Admin: 08/07/20 11:05 Dose: 2 mg Documented by: Naloxone HCl (Naloxone 0.4 Mg/Ml Sdv) 0.1 mg IVP Q2M PRN PRN Reason: RESPIRATORY RATE < 8/MIN Nitroglycerin (Nitroglycerin 0.4 Mg Sublingual Tablet) 0.4 mg SUBLINGUAL Q5M PRN PRN Reason: CHEST PAIN Ondansetron HCl (Ondansetron 2 Mg/Ml Sdv 2 Ml) 4 mg IVP Q6H PRN PRN Reason: NAUSEA AND VOMITING Last Admin: 08/08/20 09:11 Dose: 4 mg Documented by: Vitals/I&O/Wt Last Vital Signs Temp 97.0 F L 08/08/20 16:54 Pulse 67 08/08/20 19:00 Resp 19 H 08/08/20 19:00 BP 96/64 08/08/20 19:00 Pulse Ox 96 08/08/20 19:00 08/08/20 08/08/20 08/08/20 06:59 14:59 22:59 Intake Total 584.667 / 2590.823 2128.05 / 2128.05 170 / 2298.05 Output Total 375 / 2145 550 / 550 850 / 1400 Balance 209.667 / 381.408 7103.05 / 1578.05 -680 / 898.05 Physical Exam Narrative: EXAM NARRATIVE: Gen: patient is presently confused HEENT: pallor+, JVD+ CVS: Regular,S1, S2+ grade 3/6 systolic murmur + RS: decreased air entry, bilateral coarse breath sounds Abdomen: Soft, nontender FRONT OFFICE DEVELOPER: arousable, confused, moving all extremities Ext: 1+ edema, bilateral femoral access site with no hematoma, biphasic doppler pulses in DP and PT Urinary Catheter Management^: Cantu: Cath Placed During This Visit: yes Reason for Continuing Indwelling Catheter: Accurate Measurement of Urinary Output in Critically Ill Patients Urinary Catheter Date of Insertion: 08/05/20 Urinary Catheter Time of Insertion: 00:35 Data : 08/08/20 12:36 08/08/20 12:36 Micro: Microbiology 08/06/20 07:55 Urine Culture - Final Urine Catheterized Escherichia coli A&P Assessment and plan (1) Ventricular tachycardia: Status: Acute (2) NSTEMI (non-ST elevated myocardial infarction): Status: Acute (3) Atrial fibrillation with RVR: Status: Acute (4) Hypertension: Status: Acute Qualifiers: Hypertension type: essential hypertension Qualified Code(s): I10 - Essential (primary) hypertension Patient presented late with acute AK evidenced by significantly elevated troponin that trended down and spontaneous temporary chest pain resolution. Coronary angiogram demonstrated, likely culprit was SVG to OM/diagonal that is ostially occluded. SVG to RCA is occluded as well. COBB to LAD is patent. Luzma ent underwent attempt for PCI of LCx/left main artery. Patient became unstable with engagement of guide catheter. Patient's pressure dampened. Dr. Jolly was able to perform balloon angioplasty of the LCx that improved flow significantly in LCx(left main not ballooned). However patient developed pulmonary edema and could not stay still. He also went in afib with RVR. Patient was sent back to [facility]SU to stabilize patient with diuresis and rate control. Later, patient became tachycardia with wide complex tachycardia secondary to VT. Patient did not lose pulse or became unconscious. He became hypotensive with significant chest pain. He was cardioverted x 2 with successful return to normal sinus rhythm. Patient was started on Lidocaine gtt and amiodarone gtt. Patient was unstable with recurrent VT, chest pain and pulmonary edema. Given his severely reduced LV systolic function, marked dampening of pressures with left main engagement, ischemic myocardium other than COBB/LAD territory. Dr. Jp bauer and Dr. Moyer performed high risk PCI of left main/diagonal/left circumflex artery. This was Impella assisted procedure. Patient did well during the procedure. Impella was left in place as patient was still hypotensive post procedure. As patient was hemodynamically stable, impella was removed yesterday. -another dose of lasix 40 mg IVx 1 -Continue aspirin, Plavix,High intensity statin therapy -Continue heparin drip for another day. -continue amio 200mg BID -stop Lidocaine gtt given confusion and no arrhythmias -Hospitalist service assisting with management of medical issues. Appreciate their input. Additional A&P Information Ischemic cardiomtopathy Cardiogenic shock: off impella, pressors Shock liver Pneumonia UTI DM-2 RUBEN Hyponatremia Anemia Attestations Medical Necessity Statement*: Needs ICU stay post high risk impella supported PCI , NSTEMI and VT Coding Level of Care Code Acute Boiler Testing Technician for [facility] Fwd Diagnoses Ventricular tachycardia I47.2 NSTEMI (non-ST elevated myocardial infarction) I21.4 Atrial fibrillation with RVR I48.91 Hypertension I10 Hypertension type: essential hypertension
[2020-08-08 20:02] LABS: Glucose Point of Care 127 mg/dL (70-110)
[2020-08-08] MEDS: insulin glargine 100 units/1 mL 20 UNIT SUBCUT (20:04)
[2020-08-08] MEDS: atorvastatin 40 mg Tablet PO (20:05)
[2020-08-08 22:13] LABS: Partial Thromboplastin Time 156.2 SECONDS (23.9-36.7)
[2020-08-08] MEDS: cefTRIAXone 1,000 MG in sodium chloride 0.9% (plus) 50 ML 50 MG IV (22:34)
[2020-08-08 23:19] LABS: Partial Thromboplastin Time 55.9 SECONDS (23.9-36.7)
[2020-08-09] VITALS (30 sets, daily range): BP systolic 86–112; BP diastolic 54–66; PULSE 67–110; RESP 16–30; TEMP 35.9–36.6; O2SAT 86–98
[2020-08-09] MEDS: clindamycin 600 MG/50 ML PREMIX 100 MG IV ×3 (02:51→19:38)
[2020-08-09] MEDS: ipratropium-albuterol 3 mL Neb INHALATION ×3 (03:26→20:42)
[2020-08-09 05:08] LABS: Albumin Level 2.5 g/dL (3.5-5.2); Alkaline Phosphatase 99 IU/L (40-130); Anion Gap 13.6 (5-19); Blood Urea Nitrogen 37 mg/dL (8-23); Calcium 7.3 mg/dL (8.5-10.5); Carbon Dioxide 21 mmol/L (22-29); Chloride 102 mmol/L (98-107); Globulin 2.5 g/dL (1.3-4.6); Glucose 63 mg/dL (65-115); Magnesium 2.1 mg/dL (1.7-2.3); Osmolality Calculated 283 mOsm/kg (285-295); Potassium 3.6 mmol/L (3.5-5.1); Sodium 133 mmol/L (136-145); Total Bilirubin 0.5 mg/dL (0.15-1.2)
[2020-08-09 05:13] LABS: Partial Thromboplastin Time 75.4 SECONDS (23.9-36.7)
[2020-08-09 05:41] LABS: Alanine Aminotransferase 2572 U/L (0-41)
[2020-08-09 05:43] LABS: Aspartate Amino Transferase 807 U/L (0-40)
--- NOTE | 2020-08-09 06:00 | XRR_ITS ---
PROCEDURE INFORMATION: Exam: XR Chest Exam date and time: 08/08/2020 11:59 PM Age: 74 years old Clinical indication: Dyspnea; Additional info: Chf TECHNIQUE: Imaging protocol: XR of the chest Views: 1 view. COMPARISON: CR (CHEST, ) 08/08/2020 6:08 AM FINDINGS: Lungs: Persistent extensive bilateral airspace opacities. No large pleural effusion or pneumothorax. Pleural spaces: See Lungs finding. Heart/Mediastinum: Stable cardiomediastinal silhouette. The patient is status post CABG. Bones/joints: No acute osseous injury identified. Median sternotomy changes seen. XR/XR chest 1V portable [id number] IMPRESSION: Persistent extensive bilateral airspace opacities.
[2020-08-09] MEDS: FUROsemide 40 mg Tablet PO (07:39)
[2020-08-09] MEDS: aztreonam 2,000 MG in sodium chloride 0.9% (plus) 100 ML 200 MG IV ×2 (07:40→19:38)
[2020-08-09] MEDS: aspirin 81 mg EC Tablet PO (09:01)
[2020-08-09] MEDS: amiodarone 200 mg Tablet PO ×2 (09:01→18:23)
[2020-08-09] MEDS: clopidogrel 75 mg Tablet PO (09:01)
--- NOTE | 2020-08-09 09:53 | P.PN_ITS ---
Subjective Subjective: Interval history: completely different today. NO confusion. didn't sleep well-we did not give benzo last night. He c/o nausea, no appetite. Medications: Reviewed: Yes Vitals/I&O/Wt Last Vital Signs Temp 96.7 F L 08/09/20 08:00 Pulse 70 08/09/20 09:00 Resp 23 H 08/09/20 09:00 BP 108/63 08/09/20 09:00 Pulse Ox 95 08/09/20 09:00 08/08/20 08/09/20 08/09/20 22:59 06:59 14:59 Intake Total 520 / 2648.05 475.333 / 3123.383 100 / 100 Output Total 1050 / 1600 450 / 2050 Balance -530 / 1048.05 25.333 / 1073.383 100 / 100 Physical Exam Narrative: EXAM NARRATIVE: In general patient appears his stated age of 74,NAD. Heart: Regular rate and rhythm normal S1-S2 unable to auscultate murmur Lungs: Diminished throughout, wheezes markedly less. only end expiratory wheezes today GI:tender in the epigastrium, no rebound rigidity or guarding, normal bowel james nds Extremities: +1 pitting edema bilateral lower extremities skin patient is very pale with a mild yellowish hue Neuro patient awake and alert. Unsure of day/date due to 'missing yesterday' Urinary Catheter Management^: Cantu: Cath Placed During This Visit: yes Reason for Continuing Indwelling Catheter: Accurate Measurement of Urinary Output in Critically Ill Patients Urinary Catheter Date of Insertion: 08/05/20 Urinary Catheter Time of Insertion: 00:35 Data : 08/08/20 12:36 08/09/20 04:30 Micro: Microbiology 08/06/20 07:55 Urine Culture - Final Urine Catheterized Escherichia coli A&P Assessment and plan (1) Pulmonary edema: urine outpt with lasix, however still straw colored, not pale as expected with CHF. Add albumin ac lasix for a few days. Status: Acute (2) UTI (urinary tract infection): due to Ecoli. Was on aztreonam. Changed to rocephin for pneumonia. Ecoli is sens to rocephin. Noted PCN allergy. Low cross reactivity. Status: Acute (3) Hypertension: stable Status: Acute Qualifiers: Hypertension type: essential hypertension Qualified Code(s): I10 - Essential (primary) hypertension (4) Type 2 diabetes mellitus: on SSI, currently controlled last hgbA1C was 9.3 Status: Acute Qualifiers: Diabetes mellitus alf insulin use: with terminal operations manager use (5) Pneumonia due to suspected gram-negative bacteria: could be aspiration. RN noted event. on clindamycin. Status: Acute (6) Transaminitis: Likely from shock liver- improved Status: Acute Additional A&P Information Sepsi bl cx negative. proabably cardiogenic shock not sepsis. while PCN allergy, tolerated CPN yesterday. UTI and possible aspiration pneumonia that occurred after admission. Late SD off, Impella device due to hypotension/pulmonary edema Patient underwent PCI of left main/diagonal/left circumflex with Impella assisted procedure complicated by VTach, currently on po amiodarone and has been on lidocaine gtt Management as per cardiology Full code- ? has there been a discussion? Attestations Medical Necessity Statement*: requires admission for aggressive diuresis and IV antibiotics and continued close monitoring to avoid cardiac or other complications/. Coding Level of Care Code Acute Apparatus Operator for [facility] Fwd Diagnoses Pulmonary edema J81.1 UTI (urinary tract infection) N39.0 Hypertension I10 Hypertension type: essential hypertension Type 2 diabetes mellitus E11.9 Diabetes mellitus terminal operations manager insulin use: with terminal operations manager use Pneumonia due to suspected gram-negative bacteria J18.9 Transaminitis R74.01
--- NOTE | 2020-08-09 10:55 | PC.SOCIAL ---
Pg 2 IMM Explained to pt Pg 2 IMM. No questions voiced. Provided pt a copy. Initialed, dated, & timed a copy & placed in chart.
[2020-08-09] MEDS: cefTRIAXone 1,000 MG in sodium chloride 0.9% (plus) 50 ML 100 MG IV (11:03)
[2020-08-09] MEDS: heparin drip 25,000 UNIT/500 ML PREMIX 19 UNIT IV (11:05)
[2020-08-09 11:07] LABS: Vancomycin Trough 17.8 ug/mL (10-15)
[2020-08-09] MEDS: ondansetron 2 mg/ML SDV 2 mL 4 MG IVP ×2 (11:09→19:41)
--- NOTE | 2020-08-09 11:22 | PC.NURSE ---
The vancomycin trough level was delayed due to an issue in the lab that prevented the lab draw from being resulted. This delayed the start time on the vancomycin. Pharmacy was called and the vancomycin was re-timed for 12:00 p.m.
[2020-08-09 11:43] LABS: Glucose Point of Care 57 mg/dL (70-110)
[2020-08-09] MEDS: vancomycin 1,000 MG in sodium chloride 0.9% 250 ML 250 MG IV (12:42)
[2020-08-09 13:41] LABS: Basophils # 0.1 10^3/uL (0.0-0.1); Basophils % 0.8 %; Eosinophils # 0.1 10^3/uL (0.0-0.8); Eosinophils % 0.6 %; Lymphocytes # 1.1 10^3/uL (0.8-4.8); Lymphocytes % 7.3 %; Mean Corpuscular Hemoglobin 28.8 pg (28.0-34.0); Mean Corpuscular Volume 95.8 fL (80-94); Mean Platelet Volume 11.8 fL (7.4-10.4); Monocytes # 1.6 10^3/uL (0.2-0.9); Monocytes % 11.1 %; Neutrophils # 10.83 10^3/uL (1.8-7.7); Nucleated Red Blood Cells # 0.2 /100WBC; Nucleated Red Blood Cells % 1.5 %; Platelet Count 136 10^3/cmm (130-400); Red Blood Count 3.13 10^6/uL (4.1-5.3); Red Cell Distribution Width 13.9 % (12.1-15.1); White Blood Count 14.5 10^3/uL (4.0-10.0)
[2020-08-09 13:46] LABS: Neutrophils % 79.9 %
[2020-08-09] MEDS: FUROsemide 10 mg/mL SDV 4mL 40 MG IVP (14:30)
--- NOTE | 2020-08-09 14:55 | PM.PN ---
Subjective Subjective: Interval history: Patient is more alert and back to normal self. He feels weak but was able to get out of bed today. UO -2L, remains net positive. Medications: Reviewed: Yes Medication Review Details: Current Medications Acetaminophen (Acetaminophen 325 Mg Tablet) 650 mg PO Q6H PRN PRN Reason: MILD PAIN Al Hydrox/Mg Hydrox/Simethicone (Oakg-Dir-Mwepmxeeo-Mariama 30 Ml Udc) 30 ml PO Q15M PRN PRN Reason: INDIGESTION Albuterol/Ipratropium (Ipratropium-Albuterol 3 Ml Neb) 3 ml INHALATION Q4H.RESPIRATORY [facility] Last Admin: 08/08/20 16:30 Dose: Not Given Documented by: Amiodarone HCl (Amiodarone 200 Mg Tablet) 200 mg PO BID [facility] Last Admin: 08/08/20 17:24 Dose: 200 mg Documented by: Aspirin (Aspirin 81 Mg Ec Tablet) 81 mg PO DAILY [facility] Last Admin: 08/08/20 08:25 Dose: 81 mg Documented by: Atorvastatin Calcium (Atorvastatin 40 Mg Tablet) 40 mg PO BEDTIME [facility] Last Admin: 08/07/20 20:14 Dose: 40 mg Documented by: Atropine Sulfate (Atropine 1 Mg/Ml Sdv 1 Ml) 0.5 mg IVP PRN PRN PRN Reason: Symptomatic bradycardia Atropine Sulfate (Atropine 1 Mg/Ml Sdv 1 Ml) 0.5 mg IVP PRN PRN PRN Reason: Symptomatic bradycardia Calcium Carbonate (Calcium Carbonate 500 Mg Chew Tablet) 500 mg PO Q6H PRN PRN Reason: INDIGESTION Last Admin: 08/07/20 20:15 Dose: 500 mg Documented by: Clopidogrel Bisulfate (Clopidogrel 75 Mg Tablet) 75 mg PO DAILY [facility] Last Admin: 08/08/20 08:25 Dose: 75 mg Documented by: Dextrose (Dextrose 50% Syringe 50 Ml) 25 ml IVP ONCE PRN; Protocol PRN Reason: hypoglycemia protocol Dextrose (Dextrose 50% Syringe 50 Ml) 50 ml IVP PRN PRN; Protocol PRN Reason: hypoglycemia protocol Fentanyl (Fentanyl 50 Mcg/Ml Inj 2ml) 50 mcg IVP PRN PRN PRN Reason: PAIN Glucagon (Glucagon 1 Mg/Ml Inj 1 Ml) 1 mg IM ONCE PRN; Protocol PRN Reason: Adult Acute Hypoglycemia Prot. Heparin Sodium (Beef Lung) (Heparin 5,000 Unit/Ml Inj 1 Ml) 0 unit IV PRN PRN; Protocol PRN Reason: Heparin weight-base protocol Last Admin: 08/08/20 03:18 Dose: 1,400 unit Documented by: Dextrose (D5w) 500 mls @ 100 mls/hr IV ONCE PRN; Protocol PRN Reason: Adult Acute Hypoglycemia Prot Amiodarone HCl 900 mg/Dextrose/ IV Miscellaneous Supplies 518 mls @ 0 mls/hr IV .Q0M [facility]; Protocol Last Titration: 08/06/20 12:45 Dose: 0 mg/min, 0 mls/hr Documented by: Heparin Sodium/Sodium Chloride (Heparin Drip) 25,000 unit in 500 mls @ 0 mls/hr IV .Q0M [facility]; Protocol Last Titration: 08/08/20 10:35 Dose: 14.5 unit/kg/hr, 20 mls/hr Documented by: Aztreonam 2,000 mg/ Sodium (Chloride) 100 mls @ 200 mls/hr IV Q12H [facility]; Protocol Last Infusion: 08/08/20 12:32 Dose: Infused Documented by: Norepinephrine Bitartrate 4 mg (/ Dextrose) 254 mls @ 0 mls/hr IV .Q0M [facility]; Protocol Last Titration: 08/07/20 22:00 Dose: 0 mcg/min, 0 mls/hr Documented by: Amiodarone HCl 900 mg/Dextrose/ IV Miscellaneous Supplies 518 mls @ 0 mls/hr IV .Q0M [facility]; Protocol Last Titration: 08/07/20 15:05 Dose: 0 mg/min, 0 mls/hr Documented by: Vancomycin HCl 1,000 mg/ (Sodium Chloride) 250 mls @ 250 mls/hr IV Q12H [facility]; Protocol Last Infusion: 08/08/20 12:32 Dose: Infused Documented by: Ceftriaxone Sodium 1,000 mg/ (Sodium Chloride) 50 mls @ 100 mls/hr IV Q12H [facility]; Protocol Last Infusion: 08/08/20 12:33 Dose: Infused Documented by: Clindamycin HCl/Dextrose (Cleocin) 600 mg in 50 mls @ 100 mls/hr IV Q8H [facility]; Protocol Last Infusion: 08/08/20 18:59 Dose: Infused Documented by: Insulin Aspart (Insulin Aspart 100 Unit/1 Ml) 6 unit SUBCUT TIDAC [facility] Last Admin: 08/08/20 17:23 Dose: 6 unit Documented by: Insulin Aspart (Insulin Aspart 100 Unit/1 Ml) 0 unit SUBCUT WM&BEDTIME [facility]; Protocol Last Admin: 08/08/20 17:24 Dose: 6 unit Documented by: Insulin Glargine (Insulin Glargine 100 Units/1 Ml) 20 unit SUBCUT BEDTIME [facility] Last Admin: 08/07/20 20:08 Dose: 20 unit Documented by: Magnesium Hydroxide (Magnesium Hydroxide 30 Ml Udc) 30 ml PO DAILY PRN PRN Reason: CONSTIPATION Morphine Sulfate (Morphine 4 Mg/Ml Sdv 1 Ml) 2 mg IVP Q2H PRN PRN Reason: SEVERE PAIN Last Admin: 08/07/20 11:05 Dose: 2 mg Documented by: Naloxone HCl (Naloxone 0.4 Mg/Ml Sdv) 0.1 mg IVP Q2M PRN PRN Reason: RESPIRATORY RATE < 8/MIN Nitroglycerin (Nitroglycerin 0.4 Mg Sublingual Tablet) 0.4 mg SUBLINGUAL Q5M PRN PRN Reason: CHEST PAIN Ondansetron HCl (Ondansetron 2 Mg/Ml Sdv 2 Ml) 4 mg IVP Q6H PRN PRN Reason: NAUSEA AND VOMITING Last Admin: 08/08/20 09:11 Dose: 4 mg Documented by: Vitals/I&O/Wt Last Vital Signs Temp 97.1 F L 08/09/20 14:00 Pulse 74 08/09/20 14:00 Resp 30 H 08/09/20 14:00 BP 98/58 08/09/20 14:00 Pulse Ox 95 08/09/20 14:00 08/08/20 08/09/20 08/09/20 22:59 06:59 14:59 Intake Total 520 / 2648.05 502.700 / 3150.750 730 / 730 Output Total 1050 / 1600 450 / 2050 1725 / 1725 Balance -530 / 1048.05 52.700 / 1100.750 -995 / -995 Physical Exam Narrative: EXAM NARRATIVE: Gen: patient is presently confused HEENT: pallor+, JVD+ CVS: Regular,S1, S2+ grade 3/6 systolic murmur + RS: decreased air entry, bilateral coarse breath sounds, rales+ Abdomen: Soft, nontender IMPREGNATOR ELECTROLYTIC CAPACITORS: AAOx3, No FND Ext: trace-1+ edema, bilateral femoral access site with no hematoma, biphasic doppler pulses in DP and PT Urinary Catheter Management^: Cantu: Cath Placed During This Visit: yes Reason for Continuing Indwelling Catheter: Accurate Measurement of Urinary Output in Critically Ill Patients Urinary Catheter Date of Insertion: 08/05/20 Urinary Catheter Time of Insertion: 00:35 Data : 08/09/20 12:30 08/09/20 04:30 Micro: Microbiology 08/06/20 07:55 Urine Culture - Final Urine Catheterized Escherichia coli A&P Assessment and plan (1) Ventricular tachycardia: Status: Acute (2) NSTEMI (non-ST elevated myocardial infarction): Status: Acute (3) Atrial fibrillation with RVR: Status: Acute (4) Hypertension: Status: Acute Qualifiers: Hypertension type: essential hypertension Qualified Code(s): I10 - Essential (primary) hypertension Patient presented late with acute [place] evidenced by significantly elevated troponin that trended down and spontaneous temporary chest pain resolution. Coronary angiogram demonstrated, likely culprit was SVG to OM/diagonal that is ostially occluded. SVG to RCA is occluded as well. COBB to LAD is patent. Patient underwent attempt for PCI of LCx/left main artery. Patient became unstable with engagement of guide catheter. Patient's pressure dampened. Dr. Jolly was able to perform balloon angioplasty of the LCx that improved flow significantly in LCx(left main not ballooned). However patient developed pulmonary edema and could not stay still. He also went in afib with RVR. Patient was sent back to CSU to stabilize patient with diuresis and rate control. Later, patient became tachycardia with wide complex tachycardia secondary to VT. Patient did not lose pulse or became unconscious. He became hypotensive with significant chest pain. He was cardioverted x 2 with successful return to normal sinus rhythm. Patient was started on Lidocaine gtt and amiodarone gtt. Patient was unstable with recurrent VT, chest pain and pulmonary edema. Given his severely reduced LV systolic function, marked dampening of pressures with left main engagement, ischemic myocardium other than OCBB/LAD territory. Dr. Jolly performed high risk PCI of left main/diagonal/left circumflex artery. This was Impella assisted procedure. Patient did well during the procedure. Impella was left in place as patient was still hypotensive post procedure. As patient was hemodynamically stable, impella was removed yesterday. -another dose of lasix 40 mg IVx 1 later this afternoon -Continue aspirin, Plavix,High intensity statin therapy -He was taken off heparin drip. Given A. fib will start on lovenox for now and possibly transition to Eliquis in a day or 2. -continue amio 200mg BID -Off Lidocaine gtt now. -Hospitalist service assisting with management of medical issues. Appreciate their input. Additional A&P Information Ischemic cardiomtopathy Cardiogenic shock: off impella, pressors Shock liver : liver enzymes trending down Pneumonia UTI DM-2 RUBEN Hyponatremia Anemia Attestations Medical Necessity Statement*: Needs ICU stay post high risk impella supported PCI , NSTEMI and VT Time Spent in Patient Care: Greater than 35 minutes (>than 50% of time spent in counselling and/or direct pt care on unit). Coding Level of Care Code Acute Psychiatric Attendant for Terese Somers Diagnoses Ventricular tachycardia I47.2 NSTEMI (non-ST elevated myocardial infarction) I21.4 Atrial fibrillation with RVR I48.91 Hypertension I10 Hypertension type: essential hypertension
[2020-08-09 17:18] LABS: Glucose Point of Care 66 mg/dL (70-110)
[2020-08-09] MEDS: enoxaparin 80 mg/0.8 mL Syringe 70 MG SUBCUT (18:23)
--- NOTE | 2020-08-09 18:38 | PC.NURSE ---
Notified hospitalist of blood glucose level of 66. Physician ordered to hold the PM dose of insulin, order entered and acknowledged.
[2020-08-09] MEDS: atorvastatin 40 mg Tablet PO (20:03)
[2020-08-09 21:22] LABS: Glucose Point of Care 81 mg/dL (70-110)
[2020-08-10] VITALS (28 sets, daily range): BP systolic 82–122; BP diastolic 45–76; PULSE 64–83; RESP 16–31; TEMP 36.6–36.8; O2SAT 82–99
[2020-08-10] MEDS: cefTRIAXone 1,000 MG in sodium chloride 0.9% (plus) 50 ML 100 MG IV ×2 (00:10→10:09)
[2020-08-10] MEDS: FUROsemide 10 mg/mL SDV 4mL 40 MG IVP (00:11)
[2020-08-10] MEDS: vancomycin 1,000 MG in sodium chloride 0.9% 250 ML 250 MG IV ×2 (00:19→11:47)
[2020-08-10] MEDS: clindamycin 600 MG/50 ML PREMIX 100 MG IV ×3 (04:07→18:25)
[2020-08-10] MEDS: ondansetron 2 mg/ML SDV 2 mL 4 MG IVP ×2 (05:26→20:27)
[2020-08-10 05:29] LABS: Basophils % 0.4 %; Eosinophils # 0.1 10^3/uL (0.0-0.8); Eosinophils % 0.9 %; Hematocrit 25.7 % (42.0-52.0); Hemoglobin 8.2 g/dL (11.7-16.6); Lymphocytes # 1.2 10^3/uL (0.8-4.8); Lymphocytes % 10.7 %; Mean Corpuscular HGB Conc 31.9 g/dL (30.0-36.0); Mean Corpuscular Hemoglobin 28.5 pg (28.0-34.0); Mean Corpuscular Volume 89.2 fL (80-94); Mean Platelet Volume 11.8 fL (7.4-10.4); Monocytes # 1.3 10^3/uL (0.2-0.9); Neutrophils % 71.9 %; Nucleated Red Blood Cells # 0.1 /100WBC; Nucleated Red Blood Cells % 0.9 %; Platelet Count 130 10^3/cmm (130-400); Red Blood Count 2.88 10^6/uL (4.1-5.3); Red Cell Distribution Width 13.9 % (12.1-15.1); White Blood Count 10.8 10^3/uL (4.0-10.0)
[2020-08-10 05:32] LABS: Glucose Point of Care 99 mg/dL (70-110)
[2020-08-10 05:57] LABS: Albumin Level 3.1 g/dL (3.5-5.2); Alkaline Phosphatase 102 IU/L (40-130); Aspartate Amino Transferase 289 U/L (0-40); Blood Urea Nitrogen 34 mg/dL (8-23); Calcium 7.5 mg/dL (8.5-10.5); Carbon Dioxide 23 mmol/L (22-29); Chloride 103 mmol/L (98-107); Globulin 2.4 g/dL (1.3-4.6); Glucose 84 mg/dL (65-115); Magnesium 2.2 mg/dL (1.7-2.3); Osmolality Calculated 295 mOsm/kg (285-295); Sodium 139 mmol/L (136-145); Total Bilirubin 0.6 mg/dL (0.15-1.2); Total Protein 5.5 g/dL (6.6-8.7)
[2020-08-10 05:58] LABS: Anion Gap 16.1 (5-19); Potassium 3.1 mmol/L (3.5-5.1)
[2020-08-10] MEDS: enoxaparin 80 mg/0.8 mL Syringe 70 MG SUBCUT ×2 (06:21→18:01)
[2020-08-10 06:33] LABS: Alanine Aminotransferase 1541 U/L (0-41)
[2020-08-10] MEDS: aztreonam 2,000 MG in sodium chloride 0.9% (plus) 100 ML 200 MG IV (07:55)
[2020-08-10 08:02] LABS: Glucose Point of Care 104 mg/dL (70-110)
[2020-08-10] MEDS: aspirin 81 mg EC Tablet PO (08:08)
[2020-08-10] MEDS: clopidogrel 75 mg Tablet PO (08:08)
[2020-08-10] MEDS: amiodarone 200 mg Tablet PO ×2 (08:08→18:02)
--- NOTE | 2020-08-10 09:41 | XR_ITS ---
WS: [id number] Exam: XR chest 1V portable [id number] Date/Time of Exam: 08/10/2020 10:45 AM Reason For Exam: Congestive heart failure Comparison 08/09/2020. Previously noted extensive consolidating bilateral infiltrates show significant improvement. There ar e still areas of consolidation in the lower lung zones. Bilateral pleural effusions are noted. Cardia c enlargement unchanged. No pneumothorax. Signs of previous CABG surgery. XR/XR chest 1V portable [id number] IMPRESSION: 1. Improving infiltrates and pulmonary edema since previous exam. 2. Moderate bilateral pleural effusions.
--- NOTE | 2020-08-10 10:05 | PC.CHAP ---
Pastoral Care Encounter/Spiritual Assessment Type of Contact [] Declined terrazzo polisher visit [] Patient/Family/Request visit [] Outpatient visit [] Follow-up visit [] Physician referral [] Code/Alert [x] Routine visit [] Staff referral [] Actively dying [] Patient sleeping [] Family support [] [] Out of room [] Palliative care [] [] Receiving care in room [] Pre-surgical visit [] Trauma [] Long length of stay [x ICU visit [] Other: Relational/Emotional Strength [] Patient feels connected with others/family/visitors/staff [] Distress [] Loneliness/isolation [] Abandonment Spirituality of Patient [] Person of Stacie [] Attends Restorationism of their Stacie [] Believes in Prayer [] Reads Bible or Anabaptist materials [] There are Spiritual issues to be addressed Aircraft Structural Design Engineer Interventions [x] Prayer [] Active listening [] Non-anxious presence [] Spiritual/emotional support [] Crisis/trauma care [] Spiritual counseling [] Bereavement support [] Provided bereavement packet [] Provided Bible/devotional materials [] Provided toy/stuffed animal, coloring book to patient or family member [] Provided Communion [] Anointing/[place] [] Salvation [x] Completed spiritual assessment [] Other: Impact on Illness or Injury [] Angry [] Fearful [] Anxious [] Often cries [] Exhaustion [] Unable to work [] Unable to attend pentecostal [] Unable to walk/stand [] Unable to read [] Unable to drive [] Unable to eat/drink [] Unable to sleep [] Unable to be with family [] Patient intubated [] Other: Summary patient resting.. in and out of sleeping Time spent with patient
[2020-08-10] MEDS: potassium chloride ER 20 mEq Tablet 40 MEQ PO (10:09)
[2020-08-10] MEDS: ipratropium-albuterol 3 mL Neb INHALATION ×3 (11:11→19:37)
--- NOTE | 2020-08-10 11:26 | PM.PN ---
Subjective Subjective: Interval history: Patient is feeling much better today. Urine output has picked up significantly. WBC count has normalized. Sitting up in chair. Still short of breath but saturating normally on room air Vitals/I&O/Wt Last Vital Signs Temp 98.2 F 08/10/20 04:00 Pulse 66 08/10/20 11:14 Resp 16 08/10/20 11:14 BP 86/58 08/10/20 11:00 Pulse Ox 95 08/10/20 11:14 08/09/20 08/10/20 08/10/20 22:59 06:59 14:59 Intake Total 350 / 1430 450 / 1880 300 / 300 Output Total 1350 / 3075 1650 / 4725 Balance -1000 / -1645 -1200 / -2845 300 / 300 Physical Exam Narrative: EXAM NARRATIVE: General: Alert and oriented x 3 Normal rate and rhythm, S1, S2, has grade 3/6 systolic murmur No acute respiratory distress, mild crakcles Abdomen is soft nontender EOMI No neurological deficit No lower extremity edema Appropriate mood and affect Urinary Catheter Management^: Cantu: Cath Placed During This Visit: yes Reason for Continuing Indwelling Catheter: Accurate Measurement of Urinary Output in Critically Ill Patients Urinary Catheter Date of Insertion: 08/05/20 Urinary Catheter Time of Insertion: 00:35 Data : 08/10/20 04:23 08/10/20 04:23 A&P Assessment and plan (1) NSTEMI (non-ST elevated myocardial infarction): Status: Acute (2) Type 2 diabetes mellitus: Status: Acute Qualifiers: Diabetes mellitus regional commercial sales manager insulin use: with regional commercial sales manager use (3) Hypertension: Status: Acute Qualifiers: Hypertension type: essential hypertension Qualified Code(s): I10 - Essential (primary) hypertension (4) UTI (urinary tract infection): Status: Acute (5) Ventricular tachycardia: Status: Acute (6) Atrial fibrillation with RVR: Status: Acute (7) Cardiogenic shock: Status: Acute Patient presented late with acute [place] evidenced by significantly elevated troponin that trended down and spontaneous temporary chest pain resolution. Coronary angiogram demonstrated, likely culprit was SVG to OM/diagonal that is ostially occluded. SVG to RCA is occluded as well. COBB to LAD is patent. Patient underwent attempt for PCI of LCx/left main artery. Patient became unstable with engagement of guide catheter. Patient's pressure dampened. We were able to perform balloon angioplasty of the LCx that improved flow significantly in LCx(left main not ballooned). However patient developed pulmonary edema and could not stay still. He also went in afib with RVR. We decided to stop procedure there and stabilize patient with diuresis and rate control. Patient was sent back to CSU. In the PM, patient became tachycardia with wide complex tachycardia secondary to VT. Patient did not lose pulse or became unconscious. He became hypotensive with significant chest pain. He was cardioverted x 2 with successful return to normal sinus rhythm. Patient was started on Lidocaine gtt and amiodarone gtt (now lidocaine gtt stopped and amio switched to PO) Patient was unstable with recurrent VT, chest pain and pulmonary edema. Given his severely reduced LV systolic function, marked dampening of pressures with left main engagement, ischemic myocardium other than COBB/LAD territory, we decided to perform high risk PCI of left main/diagonal/left circumflex artery. This was Impella assisted procedure. Patient did well during the procedure. We left the Impella in as patient was still hypotensive post procedure. Continue aspirin and Plavix High intensity statin therapy Lovenox for anticoagulation PO KCL Continue amiodarone 200mg BID. we will initiate Metoprolol 12.5mg BID Liver enzymes improving Hospitalist service assisting with management of medical issues. Appreciate input. Patient receiving antibiotics. Will confirm with medicine team if we can narrow the antibiotic regimen ECHO shows severely reduced systolic function with EF of 30-35% PT working with patient. Patient sitting in chair today Patient is stable to be transferred to CSU Attestations Medical Necessity Statement*: Care expected to cross 2 midnights. Patient getting transferred out of ICU today Coding Level of Care Code Acute Supervising Bailiff for [facility] Fwd Diagnoses NSTEMI (non-ST elevated myocardial infarction) I21.4 Type 2 diabetes mellitus E11.9 Diabetes mellitus half-way insulin use: with half-way use Hypertension I10 Hypertension type: essential hypertension UTI (urinary tract infection) N39.0 Ventricular tachycardia I47.2 Atrial fibrillation with RVR I48.91 Cardiogenic shock R57.0
[2020-08-10 11:41] LABS: Glucose Point of Care 157 mg/dL (70-110)
[2020-08-10 17:16] LABS: Glucose Point of Care 116 mg/dL (70-110)
[2020-08-10 20:23] LABS: Glucose Point of Care 170 mg/dL (70-110)
[2020-08-10] MEDS: metoprolol tartrate 25 mg Tablet 12.5 MG PO (20:24)
[2020-08-10] MEDS: atorvastatin 40 mg Tablet PO (20:24)
[2020-08-10] MEDS: insulin glargine 100 units/1 mL 20 UNIT SUBCUT (20:27)
--- NOTE | 2020-08-10 23:07 | PM.PN ---
Subjective Subjective: Interval history: Patient was doing well. Requested by Cardiology to assess current antibiotic regimen. Patient was noted to have ecoli UTI noted on 08/02 and again 08/06. He was initially started on aztreonam however due to increasing leukocytosis he was also started on broad spectum abx including clindamycin, rocephin, and vancomycin. He was suspected to have possible pneumonia given chest x-ray notation of consolidation vs pulmonary edema. Patients leukocytosis since improved to 10. Did not have any episode of fever or productive cough. Repeat chest xray over 08/08 to 08/10 had shown improvement after IV dieresis. At the time of my eval yoel was sitting up in chair with out any distress. No fever, chills, nausea or vomiting. No new rash. León was in place. Medications: Reviewed: Yes Medication Review Details: Current Medications Acetaminophen (Acetaminophen 325 Mg Tablet) 650 mg PO Q6H PRN PRN Reason: MILD PAIN Al Hydrox/Mg Hydrox/Simethicone (Utuq-Jjy-Slnbaafxt-Mariama 30 Ml Udc) 30 ml PO Q15M PRN PRN Reason: INDIGESTION Albuterol/Ipratropium (Ipratropium-Albuterol 3 Ml Neb) 3 ml INHALATION Q4H.RESPIRATORY [facility] Last Admin: 08/08/20 16:30 Dose: Not Given Documented by: Amiodarone HCl (Amiodarone 200 Mg Tablet) 200 mg PO BID [facility] Last Admin: 08/08/20 17:24 Dose: 200 mg Documented by: Aspirin (Aspirin 81 Mg Ec Tablet) 81 mg PO DAILY [facility] Last Admin: 08/08/20 08:25 Dose: 81 mg Documented by: Atorvastatin Calcium (Atorvastatin 40 Mg Tablet) 40 mg PO BEDTIME [facility] Last Admin: 08/07/20 20:14 Dose: 40 mg Documented by: Atropine Sulfate (Atropine 1 Mg/Ml Sdv 1 Ml) 0.5 mg IVP PRN PRN PRN Reason: Symptomatic bradycardia Atropine Sulfate (Atropine 1 Mg/Ml Sdv 1 Ml) 0.5 mg IVP PRN PRN PRN Reason: Symptomatic bradycardia Calcium Carbonate (Calcium Carbonate 500 Mg Chew Tablet) 500 mg PO Q6H PRN PRN Reason: INDIGESTION Last Admin: 08/07/20 20:15 Dose: 500 mg Documented by: Clopidogrel Bisulfate (Clopidogrel 75 Mg Tablet) 75 mg PO DAILY [facility] Last Admin: 08/08/20 08:25 Dose: 75 mg Documented by: Dextrose (Dextrose 50% Syringe 50 Ml) 25 ml IVP ONCE PRN; Protocol PRN Reason: hypoglycemia protocol Dextrose (Dextrose 50% Syringe 50 Ml) 50 ml IVP PRN PRN; Protocol PRN Reason: hypoglycemia protocol Fentanyl (Fentanyl 50 Mcg/Ml Inj 2ml) 50 mcg IVP PRN PRN PRN Reason: PAIN Glucagon (Glucagon 1 Mg/Ml Inj 1 Ml) 1 mg IM ONCE PRN; Protocol PRN Reason: Adult Acute Hypoglycemia Prot. Heparin Sodium (Beef Lung) (Heparin 5,000 Unit/Ml Inj 1 Ml) 0 unit IV PRN PRN; Protocol PRN Reason: Heparin weight-base protocol Last Admin: 08/08/20 03:18 Dose: 1,400 unit Documented by: Dextrose (D5w) 500 mls @ 100 mls/hr IV ONCE PRN; Protocol PRN Reason: Adult Acute Hypoglycemia Prot Amiodarone HCl 900 mg/Dextrose/ IV Miscellaneous Supplies 518 mls @ 0 mls/hr IV .Q0M [facility]; Protocol Last Titration: 08/06/20 12:45 Dose: 0 mg/min, 0 mls/hr Documented by: Heparin Sodium/Sodium Chloride (Heparin Drip) 25,000 unit in 500 mls @ 0 mls/hr IV .Q0M [facility]; Protocol Last Titration: 08/08/20 10:35 Dose: 14.5 unit/kg/hr, 20 mls/hr Documented by: Aztreonam 2,000 mg/ Sodium (Chloride) 100 mls @ 200 mls/hr IV Q12H [facility]; Protocol Last Infusion: 08/08/20 12:32 Dose: Infused Documented by: Norepinephrine Bitartrate 4 mg (/ Dextrose) 254 mls @ 0 mls/hr IV .Q0M [facility]; Protocol Last Titration: 08/07/20 22:00 Dose: 0 mcg/min, 0 mls/hr Documented by: Amiodarone HCl 900 mg/Dextrose/ IV Miscellaneous Supplies 518 mls @ 0 mls/hr IV .Q0M [facility]; Protocol Last Titration: 08/07/20 15:05 Dose: 0 mg/min, 0 mls/hr Documented by: Vancomycin HCl 1,000 mg/ (Sodium Chloride) 250 mls @ 250 mls/hr IV Q12H [facility]; Protocol Last Infusion: 08/08/20 12:32 Dose: Infused Documented by: Ceftriaxone Sodium 1,000 mg/ (Sodium Chloride) 50 mls @ 100 mls/hr IV Q12H [facility]; Protocol Last Infusion: 08/08/20 12:33 Dose: Infused Documented by: Clindamycin HCl/Dextrose (Cleocin) 600 mg in 50 mls @ 100 mls/hr IV Q8H [facility]; Protocol Last Infusion: 08/08/20 18:59 Dose: Infused Documented by: Insulin Aspart (Insulin Aspart 100 Unit/1 Ml) 6 unit SUBCUT TIDAC [facility] Last Admin: 08/08/20 17:23 Dose: 6 unit Documented by: Insulin Aspart (Insulin Aspart 100 Unit/1 Ml) 0 unit SUBCUT WM&BEDTIME [facility]; Protocol Last Admin: 08/08/20 17:24 Dose: 6 unit Documented by: Insulin Glargine (Insulin Glargine 100 Units/1 Ml) 20 unit SUBCUT BEDTIME [facility] Last Admin: 08/07/20 20:08 Dose: 20 unit Documented by: Magnesium Hydroxide (Magnesium Hydroxide 30 Ml Udc) 30 ml PO DAILY PRN PRN Reason: CONSTIPATION Morphine Sulfate (Morphine 4 Mg/Ml Sdv 1 Ml) 2 mg IVP Q2H PRN PRN Reason: SEVERE PAIN Last Admin: 08/07/20 11:05 Dose: 2 mg Documented by: Naloxone HCl (Naloxone 0.4 Mg/Ml Sdv) 0.1 mg IVP Q2M PRN PRN Reason: RESPIRATORY RATE < 8/MIN Nitroglycerin (Nitroglycerin 0.4 Mg Sublingual Tablet) 0.4 mg SUBLINGUAL Q5M PRN PRN Reason: CHEST PAIN Ondansetron HCl (Ondansetron 2 Mg/Ml Sdv 2 Ml) 4 mg IVP Q6H PRN PRN Reason: NAUSEA AND VOMITING Last Admin: 08/08/20 09:11 Dose: 4 mg Documented by: Vitals/I&O/Wt Last Vital Signs Temp 97.9 F 08/10/20 16:00 Pulse 64 08/11/20 04:01 Resp 16 08/11/20 04:01 BP 122/70 08/10/20 20:00 Pulse Ox 93 08/11/20 04:01 0308/10/20 08/11/20 14:59 22:59 06:59 Intake Total 1000 / 1000 500 / 1500 Output Total 750 / 750 Balance 1000 / 1000 -250 / 750 Physical Exam Narrative: EXAM NARRATIVE: General - NAD Heart: NSR Lungs: non-labored respiration GI:non-tender Extremities: Edema in all 4ext, mild redness around IV insertion site on left anticubital area however nontender Neuro: alert, awake, no gross abnormality at rest Urinary Catheter Management^: León: Cath Placed During This Visit: yes Reason for Continuing Indwelling Catheter: Accurate Measurement of Urinary Output in Critically Ill Patients Urinary Catheter Date of Insertion: 08/05/20 Urinary Catheter Time of Insertion: 00:35 Data : 08/10/20 04:23 08/10/20 04:23 A&P Assessment and plan (1) Pulmonary edema: Continue IV diuresis as per cardiology León in place Replace K as needed Status: Acute (2) UTI (urinary tract infection): D/C aztreonam Continue rocephin however change dose to 2g IV daily Likely additional few days then stop Consider d/c león - voiding trials Status: Acute (3) Hypertension: stable Status: Acute Qualifiers: Hypertension type: essential hypertension Qualified Code(s): I10 - Essential (primary) hypertension (4) Type 2 diabetes mellitus: on SSI, currently controlled last hgbA1C was 9.3 Status: Acute Qualifiers: Diabetes mellitus half-way insulin use: with half-way use (5) Pneumonia due to suspected gram-negative bacteria: Ruled out Chest x-ray showed improvement Likely fluid > infectious process D/c Vancomycin D/C cliindamycin Rocephin as noted above Can monitor for fever and trend pro-calcitonin No sputum culture drawn Status: Acute (6) Transaminitis: Likely from shock liver- improved Trend CMP Status: Acute Additional A&P Information Late NH off, Impella device due to hypotension/pulmonary edema Patient underwent PCI of left main/diagonal/left circumflex with Impella assisted procedure complicated by VTach, currently on po amiodarone and has been on lidocaine gtt - Management as per cardiology CODE status Full code Disposition - Ok to transfer to CSU form medical standpoint Attestations Medical Necessity Statement*: Will require further hospital management for IV diuresis,IV abx and post ICU care Time Spent in Patient Care: Greater than 35 minutes Coding Level of Care Code Acute 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
[2020-08-11] VITALS (22 sets, daily range): BP systolic 90–126; BP diastolic 50–72; PULSE 64–81; RESP 15–31; TEMP 36.7–37.1; O2SAT 90–97
[2020-08-11 06:24] LABS: Glucose Point of Care 81 mg/dL (70-110)
[2020-08-11] MEDS: enoxaparin 80 mg/0.8 mL Syringe 70 MG SUBCUT (06:24)
[2020-08-11 06:29] LABS: Basophils % 0.3 %; Eosinophils # 0.1 10^3/uL (0.0-0.8); Eosinophils % 0.7 %; Hematocrit 25.5 % (42.0-52.0); Hemoglobin 8.2 g/dL (11.7-16.6); Lymphocytes % 9.2 %; Mean Corpuscular HGB Conc 32.2 g/dL (30.0-36.0); Mean Corpuscular Hemoglobin 28.5 pg (28.0-34.0); Mean Corpuscular Volume 88.5 fL (80-94); Mean Platelet Volume 11.3 fL (7.4-10.4); Monocytes # 1.1 10^3/uL (0.2-0.9); Monocytes % 10.2 %; Neutrophils # 8.17 10^3/uL (1.8-7.7); Neutrophils % 77.1 %; Nucleated Red Blood Cells # 0.1 /100WBC; Nucleated Red Blood Cells % 0.9 %; Platelet Count 141 10^3/cmm (130-400); Red Blood Count 2.88 10^6/uL (4.1-5.3); Red Cell Distribution Width 14.4 % (12.1-15.1); White Blood Count 10.6 10^3/uL (4.0-10.0)
[2020-08-11 06:57] LABS: Albumin Level 3.1 g/dL (3.5-5.2); Alkaline Phosphatase 97 IU/L (40-130); Anion Gap 12.3 (5-19); Aspartate Amino Transferase 187 U/L (0-40); Blood Urea Nitrogen 34 mg/dL (8-23); Calcium 7.7 mg/dL (8.5-10.5); Carbon Dioxide 24 mmol/L (22-29); Chloride 104 mmol/L (98-107); Globulin 2.2 g/dL (1.3-4.6); Glucose 71 mg/dL (65-115); Magnesium 2.5 mg/dL (1.7-2.3); Osmolality Calculated 290 mOsm/kg (285-295); Potassium 3.3 mmol/L (3.5-5.1); Sodium 137 mmol/L (136-145); Total Bilirubin 0.6 mg/dL (0.15-1.2); Total Protein 5.3 g/dL (6.6-8.7)
[2020-08-11 07:09] LABS: Alanine Aminotransferase 1174 U/L (0-41)
[2020-08-11 08:51] LABS: Glucose Point of Care 88 mg/dL (70-110)
--- NOTE | 2020-08-11 09:18 | PC.SOCIAL ---
*IMM UPDATE* kitchen manager gave patient IMM update. CM provided pt with copy of page 2 of IMM. 08/11/20 @ 0901 Initialed, dated, timed and placed in chart.
[2020-08-11] MEDS: metoprolol tartrate 25 mg Tablet 12.5 MG PO ×2 (09:34→21:59)
[2020-08-11] MEDS: aspirin 81 mg EC Tablet PO (09:34)
[2020-08-11] MEDS: amiodarone 200 mg Tablet PO ×2 (09:34→18:56)
[2020-08-11] MEDS: clopidogrel 75 mg Tablet PO (09:35)
--- NOTE | 2020-08-11 10:41 | PC.CHAP ---
Pastoral Care Encounter/Spiritual Assessment Type of Contact [] Declined winding machine operator visit [] Patient/Family/Request visit [] Outpatient visit [] Follow-up visit [] Physician referral [] Code/Alert [x] Routine visit [] Staff referral [] Actively dying [] Patient sleeping [] Family support [] [] Out of room [] Palliative care [] [x] Receiving care in room [] Pre-surgical visit [] Trauma [] Long length of stay [x] ICU visit [x] Other: patient setting up in chair.. Relational/Emotional Strength [] Patient feels connected with others/family/visitors/staff [] Distress [] Loneliness/isolation [] Abandonment Spirituality of Patient [] Person of Stacie [] Attends Confucianist of their Stacie [] Believes in Prayer [] Reads Bible or Restorationist materials [] There are Spiritual issues to be addressed Advertising Sales Executive Interventions [x] Prayer [] Active listening [] Non-anxious presence [] Spiritual/emotional support [] Crisis/trauma care [] Spiritual counseling [] Bereavement support [] Provided bereavement packet [] Provided Bible/devotional materials [] Provided toy/stuffed animal, coloring book to patient or family member [] Provided Communion [] Anointing/[place] [] Salvation [x] Completed spiritual assessment [] Other: Impact on Illness or Injury [] Angry [] Fearful [] Anxious [] Often cries [] Exhaustion [] Unable to work [] Unable to attend taoism [] Unable to walk/stand [] Unable to read [] Unable to drive [] Unable to eat/drink [] Unable to sleep [] Unable to be with family [] Patient intubated [] Other: Summary Time spent with patient
[2020-08-11 12:45] LABS: Glucose Point of Care 205 mg/dL (70-110)
[2020-08-11 12:45] LABS: Glucose Point of Care 202 mg/dL (70-110)
[2020-08-11] MEDS: ipratropium-albuterol 3 mL Neb INHALATION ×2 (12:54→20:47)
--- NOTE | 2020-08-11 13:00 | PC.NURSE ---
Dr Chaney called. Pt had scheduled 6 units of insulin in addition to the protocol. By the time the computers were accessible again after the unexpected down time, the scheduled dose would be 2 hours late and the protocol one hour late. Asked if she wanted the total 12 units administered. Orders to only administer 6 units of insulin then return to scheduled meds.
[2020-08-11] MEDS: FUROsemide 10 mg/mL SDV 4mL 40 MG IVP (13:47)
[2020-08-11] MEDS: potassium chloride ER 20 mEq Tablet 40 MEQ PO (13:47)
[2020-08-11] MEDS: polyethylene glycol 3350 Pkt 17 gm PO (13:49)
--- NOTE | 2020-08-11 15:00 | PC.NURSE ---
Pt experiencing minor nose bleed. Tissues provided and advised to hold pressure and tuck chin. Noticed pt was blowing nose and coughing. Reiterated to pt proper procedures. Applied pressure to pt's nose. Bleeding slowed.
--- NOTE | 2020-08-11 15:30 | PC.NURSE ---
Dr Chaney requested all blood thinners to be held for tonight. Will obtain more specific orders when she calls.
--- NOTE | 2020-08-11 15:45 | PC.NURSE ---
Rapid Rhino applied to left nare per order.
--- NOTE | 2020-08-11 16:00 | PC.NURSE ---
Bleeding appears to have slowed or stopped. Pt tolerating Rhino well. Pleasant and denies pain or discomfort.
--- NOTE | 2020-08-11 16:06 | PM.PN ---
Subjective Subjective: Interval history: No new complaints today. Denies any chest pain dyspnea. Afebrile, hemodynamically stable, leukocytosis improved to 10.6 Medications: Reviewed: Yes Vitals/I&O/Wt Last Vital Signs Temp 98.8 F 08/11/20 04:00 Pulse 74 08/11/20 16:00 Resp 22 H 08/11/20 16:00 BP 112/60 08/11/20 16:00 Pulse Ox 96 08/11/20 16:00 08/11/20 08/11/20 08/11/20 06:59 14:59 22:59 Intake Total 480 / 480 Output Total 250 / 1225 Balance -250 / 275 480 / 480 Physical Exam Narrative: EXAM NARRATIVE: GEN: Awake, alert and oriented, no acute distress CVS: S1S2 N RS: CTA B/L Abd: Soft, nt/nd , bs+ SIZE TESTER: no focal neuro deficits Ext: 1+ pitting edema Urinary Catheter Management^: Cantu: Cath Placed During This Visit: yes Reason for Continuing Indwelling Catheter: Accurate Measurement of Urinary Output in Critically Ill Patients Urinary Catheter Date of Insertion: 08/05/20 Urinary Catheter Time of Insertion: 00:35 Data : 08/11/20 06:10 08/11/20 06:10 Micro: Microbiology 08/06/20 08:58 Blood Culture - Final Blood NO GROWTH AFTER 5 DAYS 08/06/20 07:30 Blood Culture - Final Blood NO GROWTH AFTER 5 DAYS A&P Assessment and plan (1) Sepsis: Status: Acute (2) Atrial fibrillation with RVR: Status: Acute (3) Ventricular tachycardia: Status: Acute (4) Pulmonary edema: Status: Acute (5) UTI (urinary tract infection): Status: Acute (6) Type 2 diabetes mellitus: Status: Acute Qualifiers: Diabetes mellitus intermediate card tender insulin use: with intermediate card tender use (7) STEMI (ST elevation myocardial infarction): Status: Acute Additional A&P Information Sepsis, now resolved Leukocytosis currently resolved Possible pneumonia vs E.coli UTI earlier in course of admission Procal negative 08/06 Recived adequate course of treatment with aztreonam,vanc--> Ceftriaxone ssince 08/06 Blood cx negative to date Serial chest x-ray more consistent with pulmonary edema, however underlying infiltrates cannot be excluded,however now s/p adequate course of empiric treatment Discontinue abx today. Late IL currently on Impella device due to hypotension/pulmonary edema Patient underwent PCI of left main/diagonal/left circumflex with Impella assisted procedure He tolerated procedure well, Impella Has subsequently been removed Off pressors, clinically improving Hospital course complic ated by Di, currently on po amiodarone Management as per cardiology including diuresis management Type 2 diabetes Fingersticks well controlled currently , am blood sugar level 80s. Currently he is getting 6 units premeals along moderate sliding scale and 20 units of Lantus, reduce Lantus to 16U Transaminitis, likely from shock liver, stable Full code Cardiac diet DVT prophylaxis as per cardiology Attestations Medical Necessity Statement*: per admitting team's note Coding Level of Care Code Acute Marble Polisher for [facility] Fwd Diagnoses Sepsis A41.9 Atrial fibrillation with RVR I48.91 Ventricular tachycardia I47.2 Pulmonary edema J81.1 UTI (urinary tract infection) N39.0 Type 2 diabetes mellitus E11.9 Diabetes mellitus shelter insulin use: with intermediate card tender use STEMI (ST elevation myocardial infarction) I21.3
--- NOTE | 2020-08-11 16:18 | PC.NURSE ---
Dr Chaney will enter any meds changes after she speaks to cardiology. Dr Chaney did not want PTT and still wishes pt to be transferred to [facility].
[2020-08-11 17:05] LABS: Glucose Point of Care 129 mg/dL (70-110)
--- NOTE | 2020-08-11 18:11 | P.PN_ITS ---
Subjective Subjective: Interval history: Patient is doing well. Denies complaints of chest pain or palpitations. Still short of breath. Has good urine output. Vitals/I&O/Wt Last Vital Signs Temp 98.8 F 08/11/20 04:00 Pulse 74 08/11/20 16:00 Resp 22 H 08/11/20 16:00 BP 112/60 08/11/20 16:00 Pulse Ox 96 08/11/20 16:00 08/11/20 08/11/20 08/11/20 06:59 14:59 22:59 Intake Total 480 / 480 Output Total 250 / 1225 Balance -250 / 275 480 / 480 Physical Exam Narrative: EXAM NARRATIVE: General: Alert and oriented x 3 Normal rate and rhythm, S1, S2, has grade 3/6 systolic murmur No acute respiratory distress, mild crakcles Abdomen is soft nontender EOMI No neurological deficit No lower extremity edema Appropriate mood and affect Urinary Catheter Management^: Cantu: Cath Placed During This Visit: yes Reason for Continuing Indwelling Catheter: Accurate Measurement of Urinary Output in Critically Ill Patients Urinary Catheter Date of Insertion: 08/05/20 Urinary Catheter Time of Insertion: 00:35 Data : 08/11/20 06:10 08/11/20 06:10 Micro: Microbiology 08/06/20 08:58 Blood Culture - Final Blood NO GROWTH AFTER 5 DAYS 08/06/20 07:30 Blood Culture - Final Blood NO GROWTH AFTER 5 DAYS A&P Assessment and plan (1) NSTEMI (non-ST elevated myocardial infarction): Status: Acute (2) Type 2 diabetes mellitus: Status: Acute Qualifiers: Diabetes mellitus senior living insulin use: with senior living use (3) Hypertension: Status: Acute Qualifiers: Hypertension type: essential hypertension Qualified Code(s): I10 - Essential (primary) hypertension (4) UTI (urinary tract infection): Status: Acute (5) Ventricular tachycardia: Status: Acute (6) Atrial fibrillation with RVR: Status: Acute (7) Cardiogenic shock: Status: Acute Patient presented late with acute MN evidenced by significantly elevated troponin that trended down and spontaneous temporary chest pain resolution. Coronary angiogram demonstrated, likely culprit was SVG to OM/diagonal that is ostially occluded. SVG to RCA is occluded as well. COBB to LAD is patent. Patient underwent attempt for PCI of LCx/left main artery. Patient became unstable with engagement of guide catheter. Patient's pressure dampened. We were able to perform balloon angioplasty of the LCx that improved flow significantly in LCx(left main not ballooned). However patient developed pulmonary edema and could not stay still. He also went in afib with RVR. We decided to stop procedure there and stabilize patient with diuresis and rate control. Patient was sent back to [facility]. In the PM, patient became tachycardia with wide complex tachycardia secondary to VT. Patient did not lose pulse or became unconscious. He became hypotensive with significant chest pain. He was cardioverted x 2 with successful return to normal sinus rhythm. Patient was started on Lidocaine gtt and amiodarone gtt (now lidocaine gtt stopped and amio switched to PO) Patient was unstable with recurrent VT, chest pain and pulmonary edema. Given his severely reduced LV systolic function, marked dampening of pressures with left main engagement, ischemic myocardium other than COBB/LAD territory, we decided to perform high risk PCI of left main/diagonal/left circumflex artery. This was Impella assisted procedure. Patient did well during the procedure. We left the Impella in as patient was still hypotensive post procedure. Continue aspirin and Plavix High intensity statin therapy Switch anticoagulation to Eliquis 5mg BID PO KCL Continue amiodarone 200mg BID. Continue metoprolol 12.5mg BID Liver enzymes improving Hospitalist service assisting with management of medical issues. Appreciate input. Antibiotics stopped ECHO shows severely reduced systolic function with EF of 30-35% PT working with patient. Patient sitting in chair today Patient is stable to be transferred to [facility] Attestations Medical Necessity Statement*: Care expected to cross 2 midnights. Patient is still volume overloaded, requiring IV diuresis Coding Level of Care Code Acute Tar Processing Technician for [facility] Fwd Diagnoses NSTEMI (non-ST elevated myocardial infarction) I21.4 Type 2 diabetes mellitus E11.9 Diabetes mellitus senior living insulin use: with senior living use Hypertension I10 Hypertension type: essential hypertension UTI (urinary tract infection) N39.0 Ventricular tachycardia I47.2 Atrial fibrillation with RVR I48.91 Cardiogenic shock R57.0
[2020-08-11 18:31] LABS: Glucose Point of Care 118 mg/dL (70-110)
[2020-08-11] MEDS: ondansetron 2 mg/ML SDV 2 mL 4 MG IVP (20:00)
[2020-08-11] MEDS: atorvastatin 40 mg Tablet PO (21:59)
[2020-08-11] MEDS: insulin glargine 100 units/1 mL 16 UNIT SUBCUT (22:19)
[2020-08-12] VITALS (20 sets, daily range): BP systolic 92–112; BP diastolic 54–72; PULSE 62–81; RESP 14–27; TEMP 36.7–37.1; O2SAT 91–98
--- NOTE | 2020-08-12 04:55 | PC.NURSE ---
Rhino rocket removed from patient prior to transfer. patient tolerated well. no rhinorrhea recognized after removal.
[2020-08-12 04:59] LABS: Glucose Point of Care 109 mg/dL (70-110)
[2020-08-12 05:14] LABS: Basophils % 0.2 %; Eosinophils % 0.3 %; Hematocrit 25.7 % (42.0-52.0); Hemoglobin 8.2 g/dL (11.7-16.6); Lymphocytes # 1.1 10^3/uL (0.8-4.8); Lymphocytes % 10.3 %; Mean Corpuscular HGB Conc 31.9 g/dL (30.0-36.0); Mean Corpuscular Hemoglobin 28.5 pg (28.0-34.0); Mean Corpuscular Volume 89.2 fL (80-94); Mean Platelet Volume 11.5 fL (7.4-10.4); Monocytes # 0.9 10^3/uL (0.2-0.9); Monocytes % 8.8 %; Neutrophils # 8.17 10^3/uL (1.8-7.7); Neutrophils % 79.4 %; Nucleated Red Blood Cells % 0.4 %; Platelet Count 144 10^3/cmm (130-400); Red Blood Count 2.88 10^6/uL (4.1-5.3); Red Cell Distribution Width 14.7 % (12.1-15.1); White Blood Count 10.3 10^3/uL (4.0-10.0)
[2020-08-12 05:30] LABS: Anion Gap 13.5 (5-19); Blood Urea Nitrogen 33 mg/dL (8-23); Calcium 8.2 mg/dL (8.5-10.5); Carbon Dioxide 25 mmol/L (22-29); Chloride 105 mmol/L (98-107); Glucose 95 mg/dL (65-115); Osmolality Calculated 297 mOsm/kg (285-295); Potassium 3.5 mmol/L (3.5-5.1); Sodium 140 mmol/L (136-145)
--- NOTE | 2020-08-12 05:33 | PC.NURSE ---
Patient transferred with all belongings to [facility], report given to JESI Redmond. Labwork drawn proir to transfer
--- NOTE | 2020-08-12 05:36 | PC.NURSE ---
Report received from JESI Reid. Patient delivered from ICU via wheelchair. Patient able to step to bed with standby assist only. Cantu catheter in place. JESI Reid removed rhino-rocket from patient's nare. No active bleeding observed at this time. Patient inhaled deeply through his nose and coughed up large blood clot. Assessed for bleeding. No bleeding observed. Patient stated, I can breathe better now. Patient requesting to have fall risk restrictions removed. Instructed patient that PT, OT would have to help with that. Patient is doing well. No complaints or needs. No distress observed.
[2020-08-12 06:44] LABS: Glucose Point of Care 91 mg/dL (70-110)
[2020-08-12] MEDS: ipratropium-albuterol 3 mL Neb INHALATION ×4 (07:33→20:17)
--- NOTE | 2020-08-12 09:00 | PC.NURSE ---
Nurse notified that patient's león bag had a hole. Bag replaced. Sterile technique maintained. Patient tolerated well.
[2020-08-12] MEDS: clopidogrel 75 mg Tablet PO (09:16)
[2020-08-12] MEDS: metoprolol tartrate 25 mg Tablet 12.5 MG PO ×2 (09:16→21:26)
[2020-08-12] MEDS: apixaban 5 mg Tablet PO ×2 (09:16→21:26)
[2020-08-12] MEDS: amiodarone 200 mg Tablet PO ×2 (09:16→18:10)
--- NOTE | 2020-08-12 09:25 | PC.CHAP ---
Pastoral Care Encounter/Spiritual Assessment Type of Contact [] Declined sales effectiveness manager visit [] Patient/Family/Request visit [] Outpatient visit [] Follow-up visit [] Physician referral [] Code/Alert [x] Routine visit [] Staff referral [] Actively dying [] Patient sleeping [] Family support [] [] Out of room [] Palliative care [] [] Receiving care in room [] Pre-surgical visit [] Trauma [] Long length of stay [] ICU visit [] Other: Relational/Emotional Strength [] Patient feels connected with others/family/visitors/staff [] Distress [] Loneliness/isolation [] Abandonment Spirituality of Patient [] Person of Stacie [] Attends Anglican of their Stacie [] Believes in Prayer [] Reads Bible or Church materials [] There are Spiritual issues to be addressed Pump Technician Interventions [x] Prayer [] Active listening [] Non-anxious presence [] Spiritual/emotional support [] Crisis/trauma care [] Spiritual counseling [] Bereavement support [] Provided bereavement packet [] Provided Bible/devotional materials [] Provided toy/stuffed animal, coloring book to patient or family member [] Provided Communion [] Anointing/[place] [] Salvation [x] Completed spiritual assessment [] Other: Impact on Illness or Injury [] Angry [] Fearful [] Anxious [] Often cries [] Exhaustion [] Unable to work [] Unable to attend christian [] Unable to walk/stand [] Unable to read [] Unable to drive [] Unable to eat/drink [] Unable to sleep [] Unable to be with family [] Patient intubated [] Other: Summary patient resting well... transferred from ICU... Time spent with patient
[2020-08-12 11:29] LABS: Glucose Point of Care 261 mg/dL (70-110)
[2020-08-12] MEDS: FUROsemide 10 mg/mL SDV 4mL 40 MG IVP (12:17)
--- NOTE | 2020-08-12 12:25 | XR_ITS ---
WS: [id number] Exam: XR chest 1V portable [id number] Date/Time of Exam: 08/12/2020 12:27 PM Reason For Exam: dyspnea, CHF Compared to prior study 08/10/2020. Bilateral patchy pulmonary infiltrates show little change. Bibasal pleural effusions are stable in ap pearance. Heart size is upper limits of normal and slightly smaller than noted previously. No pneumot horax. Signs of median sternotomy. The mediastinum is not widened. Regional bony elements are intact. XR/XR chest 1V portable [id number] IMPRESSION: 1. Bilateral pulmonary infiltrates and pleural effusions showing little change since previous exam. 2. The heart appears to be slightly smaller than noted previously. This may be due to the imaging technique.
--- NOTE | 2020-08-12 12:26 | P.PN_ITS ---
Subjective Subjective: Interval history: Epistaxis is now resolved, Rhino Rocket has been removed this morning. Blood tinged clear discharge from left nares, no mk bleeding. Patient remains saturating well at 98% on room air. Afebrile, hemodynamically stable Medications: Reviewed: Yes Vitals/I&O/Wt Last Vital Signs Temp 98.8 F 08/12/20 11:06 Pulse 75 08/12/20 11:18 Resp 20 H 08/12/20 11:13 BP 102/59 08/12/20 11:06 Pulse Ox 98 08/12/20 11:13 08/11/20 08/12/20 08/12/20 22:59 06:59 14:59 Intake Total 340 / 920 200 / 1120 270 / 270 Output Total 1375 / 1375 400 / 1775 Balance -1035 / -455 -200 / -655 270 / 270 Weight last 48 hrs Weight 78.698 kg Physical Exam Narrative: EXAM NARRATIVE: GEN: Awake, alert and oriented, no acute distress CVS: S1S2 N RS: CTA B/L Abd: Soft, nt/nd , bs+ GAS STATION SUPERVISOR: no focal neuro deficits Urinary Catheter Management^: Cantu: Cath Placed During This Visit: yes Reason for Continuing Indwelling Catheter: Acute Urinary Retention or Obstruction Urinary Catheter Date of Insertion: 08/05/20 Urinary Catheter Time of Insertion: 00:35 Data : 08/12/20 05:00 08/12/20 05:00 Micro: Microbiology 08/06/20 08:58 Blood Culture - Final Blood NO GROWTH AFTER 5 DAYS 08/06/20 07:30 Blood Culture - Final Blood NO GROWTH AFTER 5 DAYS A&P Assessment and plan (1) Sepsis: Status: Acute (2) Atrial fibrillation with RVR: Status: Acute (3) Ventricular tachycardia: Status: Acute (4) Pulmonary edema: Status: Acute (5) UTI (urinary tract infection): Status: Acute (6) Type 2 diabetes mellitus: Status: Acute Qualifiers: Diabetes mellitus terminal supervisor insulin use: with retirement use (7) STEMI (ST elevation myocardial infarction): Status: Acute Additional A&P Information 3Sepsis, now resolved Leukocytosis currently resolved Possible pneumonia vs E.coli UTI earlier in course of admission Procal negative 08/06 Recived adequate course of treatment with aztreonam,vanc--> Ceftriaxone since 08/06-08/11 Blood cx negative to date Serial chest x-ray more consistent with pulmonary edema, however underlying infiltrates cannot be excluded,however now s/p adequate course of empiric treatment # NSTEMI Patient underwent PCI of left main/diagonal/left circumflex with Impella assisted procedure He tolerated procedure well, Impella Has subsequently been removed Off pressors, clinically improving Hospital course complic ated by VTach, currently on po amiodarone Management as per cardiology including diuresis management # Atrial fibrillation: Curently on a/c wih eliquis # Epistaxis, now resolved, rhino rocket removed 08/12 # Type 2 diabetes Fingersticks well controlled currently Currently he is getting 6 units premeals along moderate sliding scale and 16 un its of Lantus # Transaminitis, likely from shock liver, stable Full code Cardiac diet DVT prophylaxis : aditi Ruffin Medical Necessity Statement*: per admitting note Coding Level of Care Code Acute Senior Java Developer for [facility] Fwd Diagnoses Sepsis A41.9 Atrial fibrillation with RVR I48.91 Ventricular tachycardia I47.2 Pulmonary edema J81.1 UTI (urinary tract infection) N39.0 Type 2 diabetes mellitus E11.9 Diabetes mellitus retirement insulin use: with terminal supervisor use STEMI (ST elevation myocardial infarction) I21.3
[2020-08-12 16:40] LABS: Glucose Point of Care 61 mg/dL (70-110)
[2020-08-12 17:03] LABS: Glucose Point of Care 67 mg/dL (70-110)
[2020-08-12 17:20] LABS: Glucose Point of Care 81 mg/dL (70-110)
--- NOTE | 2020-08-12 17:25 | PC.NURSE ---
Dr. Chaney notified that patient's BG was 61 at evening meal assessment. A total of two 4 oz orange juices were administered per hypoglycemic policy as patient was A&Ox4, asymptomatic. Upon reassessment, BG was 81. Dr. Chaney notified, message left. Novolog 6 units scheduled clarified with physician. Nurse waiting further orders.
--- NOTE | 2020-08-12 17:59 | PM.PN ---
Subjective Subjective: Interval history: Patient is doing well. He had nose bleeding yesterday. Aspirin has been stopped. He is receiving eliquis and Plavix now Vitals/I&O/Wt Last Vital Signs Temp 98.4 F 08/12/20 15:04 Pulse 79 08/12/20 15:28 Resp 18 08/12/20 15:14 BP 112/72 08/12/20 15:04 Pulse Ox 96 08/12/20 15:14 08/12/20 08/12/20 08/12/20 06:59 14:59 22:59 Intake Total 200 / 1120 390 / 390 360 / 750 Output Total 400 / 1775 275 / 275 Balance -200 / -655 115 / 115 360 / 475 Weight last 48 hrs Weight 173 lb 8 oz Physical Exam Narrative: EXAM NARRATIVE: General: Alert and oriented x 3 Normal rate and rhythm, S1, S2, has grade 3/6 systolic murmur No acute respiratory distress, mild crakcles Abdomen is soft nontender EOMI No neurological deficit No lower extremity edema Appropriate mood and affect Urinary Catheter Management^: Cantu: Cath Placed During This Visit: yes Reason for Continuing Indwelling Catheter: Accurate Measurement of Urinary Output in Critically Ill Patients Urinary Catheter Date of Insertion: 08/05/20 Urinary Catheter Time of Insertion: 00:35 Data : 08/12/20 05:00 08/12/20 05:00 A&P Assessment and plan (1) NSTEMI (non-ST elevated myocardial infarction): Status: Acute (2) Type 2 diabetes mellitus: Status: Acute Qualifiers: Diabetes mellitus exterminator termite insulin use: with care home use (3) Hypertension: Status: Acute Qualifiers: Hypertension type: essential hypertension Qualified Code(s): I10 - Essential (primary) hypertension (4) UTI (urinary tract infection): Status: Acute (5) Ventricular tachycardia: Status: Acute (6) Atrial fibrillation with RVR: Status: Acute (7) Cardiogenic shock: Status: Acute Patient presented late with acute HI evidenced by significantly elevated troponin that trended down and spontaneous temporary chest pain resolution. Coronary angiogram demonstrated, likely culprit was SVG to OM/diagonal that is ostially occluded. SVG to RCA is occluded as well. COBB to LAD is patent. Patient underwent attempt for PCI of LCx/left main artery. Patient became unstable with engagement of guide catheter. Patient's pressure dampened. We were able to perform balloon angioplasty of the LCx that improved flow significantly in LCx(left main not ballooned). However patient developed pulmonary edema and could not stay still. He also went in afib with RVR. We decided to stop procedure there and stabilize patient with diuresis and rate control. Patient was sent back to [facility]. In the PM, patient became tachycardia with wide complex tachycardia secondary to VT. Patient did not lose pulse or became unconscious. He became hypotensive with significant chest pain. He was cardioverted x 2 with successful return to normal sinus rhythm. Patient was started on Lidocaine gtt and amiodarone gtt (now lidocaine gtt stopped and amio switched to PO) Patient was unstable with recurrent VT, chest pain and pulmonary edema. Given his severely reduced LV systolic function, marked dampening of pressures with left main engagement, ischemic myocardium other than COBB/LAD territory, we decided to perform high risk PCI of left main/diagonal/left circumflex artery. This was Impella assisted procedure. Patient did well during the procedure. We left the Impella in as patient was still hypotensive post procedure and was removed later. Given significant nose bleed, we have switched the anticoagulation/antiplatelet regimen to plavix and Eliquis High intensity statin therapy PO KCL Continue amiodarone 200mg BID. Continue metoprolol 12.5mg BID Liver enzymes improving Hospitalist service assisting with management of medical issues. Appreciate input. Antibiotics stopped ECHO shows severely reduced systolic function with EF of 30-35% PT working with patient. Patient sitting in chair today Patient has been transferred out of ICU. At time of discharge will need LifeVest Attestations Medical Necessity Statement*: Care expected to cross 2 midnights. Patient needing IV diuresis. Coding Level of Care Code Acute Plan Checker for [facility] Fwd Diagnoses NSTEMI (non-ST elevated myocardial infarction) I21.4 Type 2 diabetes mellitus E11.9 Diabetes mellitus care home insulin use: with exterminator termite use Hypertension I10 Hypertension type: essential hypertension UTI (urinary tract infection) N39.0 Ventricular tachycardia I47.2 Atrial fibrillation with RVR I48.91 Cardiogenic shock R57.0
--- NOTE | 2020-08-12 18:35 | PC.NURSE ---
Telephone order to hold scheduled novolog due to hypoglycemia.
[2020-08-12 19:09] LABS: NT Pro B Type Natriuretic Pept 15350 pg/mL (0-125)
[2020-08-12] MEDS: atorvastatin 40 mg Tablet PO (21:26)
[2020-08-13] VITALS (20 sets, daily range): BP systolic 97–113; BP diastolic 60–66; PULSE 67–84; RESP 17–26; TEMP 36.6–37.1; O2SAT 93–96; BMI 25.1
[2020-08-13] MEDS: ipratropium-albuterol 3 mL Neb INHALATION ×7 (00:09→23:55)
[2020-08-13 07:19] LABS: Glucose Point of Care 171 mg/dL (70-110)
[2020-08-13] MEDS: bumetanide 0.25 mg/mL SDV 10 mL 2 MG IV ×2 (08:07→17:33)
[2020-08-13 08:57] LABS: Basophils % 0.2 %; Eosinophils # 0.1 10^3/uL (0.0-0.8); Eosinophils % 0.6 %; Hematocrit 27.1 % (42.0-52.0); Hemoglobin 8.5 g/dL (11.7-16.6); Lymphocytes # 1.2 10^3/uL (0.8-4.8); Lymphocytes % 10.7 %; Mean Corpuscular HGB Conc 31.4 g/dL (30.0-36.0); Mean Corpuscular Hemoglobin 28.3 pg (28.0-34.0); Mean Corpuscular Volume 90.3 fL (80-94); Mean Platelet Volume 11.4 fL (7.4-10.4); Monocytes # 0.6 10^3/uL (0.2-0.9); Monocytes % 5.6 %; Neutrophils # 9.09 10^3/uL (1.8-7.7); Neutrophils % 82.1 %; Nucleated Red Blood Cells % 0.3 %; Platelet Count 178 10^3/cmm (130-400); Red Cell Distribution Width 15.5 % (12.1-15.1); White Blood Count 11.1 10^3/uL (4.0-10.0)
--- NOTE | 2020-08-13 09:21 | PC.SOCIAL ---
*IMM UPDATE* Humid System Operator gave patient IMM update. Provided patient copy of page 2 of IMM. 08/13/2020 @0903 Initialed, dated, timed and placed in chart.
[2020-08-13] MEDS: clopidogrel 75 mg Tablet PO (09:23)
[2020-08-13] MEDS: metOLazone 5 MG Tablet 2.5 MG PO (09:23)
[2020-08-13 09:24] LABS: Alanine Aminotransferase 561 U/L (0-41); Alkaline Phosphatase 94 IU/L (40-130); Anion Gap 15.9 (5-19); Aspartate Amino Transferase 105 U/L (0-40); Blood Urea Nitrogen 33 mg/dL (8-23); Calcium 8.6 mg/dL (8.5-10.5); Carbon Dioxide 24 mmol/L (22-29); Chloride 100 mmol/L (98-107); Globulin 2.2 g/dL (1.3-4.6); Glucose 204 mg/dL (65-115); Osmolality Calculated 295 mOsm/kg (285-295); Potassium 3.9 mmol/L (3.5-5.1); Sodium 136 mmol/L (136-145); Total Bilirubin 0.8 mg/dL (0.15-1.2); Total Protein 6.2 g/dL (6.6-8.7)
[2020-08-13] MEDS: amiodarone 200 mg Tablet PO ×2 (09:24→17:33)
[2020-08-13] MEDS: apixaban 5 mg Tablet PO ×2 (09:24→20:46)
[2020-08-13] MEDS: metoprolol tartrate 25 mg Tablet 12.5 MG PO ×2 (09:24→20:46)
--- NOTE | 2020-08-13 09:51 | PC.NURSE ---
during rounding with provider Dr nation gave verbal orders to place lantus order on hold and proceed with pre meal dose of 6 units with sliding scale
[2020-08-13 11:28] LABS: Glucose Point of Care 236 mg/dL (70-110)
--- NOTE | 2020-08-13 12:50 | P.PN_ITS ---
Subjective Subjective: Interval history: Patient noted to be hypoglycemic last evening with blood sugar between 61-67, Lantus was held overnight as a result of the hypoglycemia. Insulin sliding scale changed to mild, continue premeal insulin, monitor 24-hour requirements. Given extra dose of Bumex 2 mg due to poor urine output today. Medications: Reviewed: Yes Vitals/I&O/Wt Last Vital Signs Temp 98.4 F 08/13/20 11:15 Pulse 72 08/13/20 11:34 Resp 18 08/13/20 11:30 BP 112/66 08/13/20 11:15 Pulse Ox 96 08/13/20 11:30 08/12/20 08/13/20 08/13/20 22:59 06:59 14:59 Intake Total 1160 / 1550 100 / 1650 340 / 340 Output Total 850 / 1125 1000 / 2125 850 / 850 Balance 310 / 425 -900 / -475 -510 / -510 Weight last 48 hrs Weight 79.52 kg Physical Exam Narrative: EXAM NARRATIVE: GEN: Awake, alert and oriented, no acute distress CVS: S1S2 N RS: CTA B/L Abd: Soft, nt/nd , bs+ PRESIDENT + PUBLISHER: no focal neuro deficits Urinary Catheter Management^: Cantu: Cath Placed During This Visit: yes Reason for Continuing Indwelling Catheter: Accurate Measurement of Urinary Output in Critically Ill Patients Urinary Catheter Date of Insertion: 08/05/20 Urinary Catheter Time of Insertion: 00:35 Data : 08/13/20 08:40 08/13/20 08:40 A&P Assessment and plan (1) Sepsis: Status: Acute (2) Atrial fibrillation with RVR: Status: Acute (3) Ventricular tachycardia: Status: Acute (4) Pulmonary edema: Status: Acute (5) UTI (urinary tract infection): Status: Acute (6) Type 2 diabetes mellitus: Status: Acute Qualifiers: Diabetes mellitus termite renewal inspector insulin use: with termite renewal inspector use (7) STEMI (ST elevation myocardial infarction): Status: Acute Additional A&P Information #Sepsis, now resolved Leukocytosis currently resolved Possible pneumonia vs E.coli UTI earlier in course of admission Procal negative 08/06 Recived adequate course of treatment with aztreonam,vanc--> Ceftriaxone since 08/06-08/11 Blood cx negative to date Serial chest x-ray more consistent with pulmonary edema, however underlying infiltrates cannot be excluded,however now s/p adequate course of empiric treatment # NSTEMI Patient underwent PCI of left main/diagonal/left circumflex with Impella assisted procedure He tolerated procedure well, Impella Has subsequently been removed Off pressors, clinically improving Hospital course complic ated by Di, currently on po amiodarone Management as per cardiology including diuresis management # Atrial fibrillation: Curently on a/c wih eliquis # Epistaxis, now resolved, rhino rocket removed 08/12 # Type 2 diabetes Hypoglycemic overnight, blood sugar down to 60s. Lantus 16 units has been held now. Continue premeal insulin at 6 units 3 times daily, moderate insulin scale changed to mild scale additionally, will monitor insulin requirements over the next 24 hours and titrate accordingly # Transaminitis, likely from shock liver, improving Full code Cardiac diet DVT prophylaxis : aditi Ruffin Medical Necessity Statement*: per admitting team Coding Level of Care Code Acute Baler Operator for [facility] Fwd Diagnoses Sepsis A41.9 Atrial fibrillation with RVR I48.91 Ventricular tachycardia I47.2 Pulmonary edema J81.1 UTI (urinary tract infection) N39.0 Type 2 diabetes mellitus E11.9 Diabetes mellitus termite renewal inspector insulin use: with senior care use STEMI (ST elevation myocardial infarction) I21.3
--- NOTE | 2020-08-13 14:32 | PC.NURSE ---
spoke with Dr. jolly about removal of león under the instructions of Dr. rios Jolly gave ok to removal león to be sure patient uses urinal for accurate IO
--- NOTE | 2020-08-13 14:53 | PC.NURSE ---
Alvaro from [facility] at beside to fit patient with [employer] life vest
--- NOTE | 2020-08-13 15:30 | ECG_ITS ---
[facility] Test Date: 2020-08-13 Pat Name: Ze Waite Department: Room: 103 Gender: Male Executive Services Administrator: : 1945 Requested By: Betito Jolly Order Number: [id number] Eboni MD: Tate Iglesias M.D. Measurements Intervals [place] Rate: 73 P: 33 VT: 165 QRS: 215 QRSD: 158 T: 254 QT: 471 QTc: 520 Interpretive Statements SINUS RHYTHM WITH OCCASIONAL SUPRAVENTRICULAR PREMATURE COMPLEXES MARKED RIGHT AXIS DEVIATION [QRS AXIS > 100] RIGHT BUNDLE BRANCH BLOCK [120+ ms QRS DURATION, UPRIGHT V1, 40+ ms S IN I/aVL/V4/V5/V6] Compared to ECG 08/08/2020 05:56:36 No significant changes Electronically Signed On 08-13-2020 20:39:48 CDT by Tate Iglesias M.D. [id number]
--- NOTE | 2020-08-13 15:30 | PC.NURSE ---
patient receiving information on life vest and started to have a bout of chest pain and pressure no changes in tele blood pressure 99/62 HR 72 reported patient complaints to Dr. Jolly instructions to obtain follow Up ekg may try some anxiety medications if no changes
--- NOTE | 2020-08-13 16:23 | PM.PN ---
Subjective Subjective: Interval history: Patient is doing well. Denies any complaints of chest or shortness of breath palpitations. Put on IV Bumex and metolazone. Renal function is stable. Vitals/I&O/Wt Last Vital Signs Temp 98.4 F 08/13/20 11:15 Pulse 70 08/13/20 14:00 Resp 18 08/13/20 11:30 BP 112/66 08/13/20 11:15 Pulse Ox 96 08/13/20 11:30 08/13/20 08/13/20 08/13/20 06:59 14:59 22:59 Intake Total 100 / 1650 340 / 340 Output Total 1000 / 2125 850 / 850 550 / 1400 Balance -900 / -475 -510 / -510 -550 / -1060 Weight last 48 hrs Weight 175 lb 5 oz Physical Exam Narrative: EXAM NARRATIVE: General: Alert and oriented x 3 Normal rate and rhythm, S1, S2, has grade 3/6 systolic murmur No acute respiratory distress, mild crakcles Abdomen is soft nontender EOMI No neurological deficit 1+ lower extremity edema Appropriate mood and affect Urinary Catheter Management^: Cantu: Cath Placed During This Visit: yes, but has since been removed by the nurse Reason for Continuing Indwelling Catheter: Accurate Measurement of Urinary Output in Critically Ill Patients Urinary Catheter Date of Insertion: 08/05/20 Urinary Catheter Time of Insertion: 00:35 Date Urinary Catheter Removed: 08/13/20 Time Urinary Catheter Discontinued: 14:52 Data : 08/13/20 08:40 08/13/20 08:40 A&P Assessment and plan (1) NSTEMI (non-ST elevated myocardial infarction): Status: Acute (2) Type 2 diabetes mellitus: Status: Acute Qualifiers: Diabetes mellitus fpc insulin use: with long term care social worker use (3) Hypertension: Status: Acute Qualifiers: Hypertension type: essential hypertension Qualified Code(s): I10 - Essential (primary) hypertension (4) UTI (urinary tract infection): Status: Acute (5) Ventricular tachycardia: Status: Acute (6) Atrial fibrillation with RVR: Status: Acute (7) Cardiogenic shock: Status: Acute Patient presented late with acute MO evidenced by significantly elevated troponin that trended down and spontaneous temporary chest pain resolution. Coronary angiogram demonstrated, likely culprit was SVG to OM/diagonal that is ostially occluded. SVG to RCA is occluded as well. COBB to LAD is patent. Patient underwent attempt for PCI of LCx/left main artery. Patient became unstable with engagement of guide catheter. Patient's pressure dampened. We were able to perform balloon angioplasty of the LCx that improved flow significantly in LCx(left main not ballooned). However patient developed pulmonary edema and could not stay still. He also went in afib with RVR. We decided to stop procedure there and stabilize patient with diuresis and rate control. Patient was sent back to [facility]. In the PM, patient became tachycardia with wide complex tachycardia secondary to VT. Patient did not lose pulse or became unconscious. He became hypotensive with significant chest pain. He was cardioverted x 2 with successful return to normal sinus rhythm. Patient was started on Lidocaine gtt and amiodarone gtt (now lidocaine gtt stopped and amio switched to PO) Patient was unstable with recurrent VT, chest pain and pulmonary edema. Given his severely reduced LV systolic function, marked dampening of pressures with left main engagement, ischemic myocardium other than COBB/LAD territory, we decided to perform high risk PCI of left main/diagonal/left circumflex artery. This was Impella assisted procedure. Patient did well during the procedure. We left the Impella in as patient was still hypotensive post procedure and was removed later. Continue Eliquis and Plavix. Aspirin has been held. High intensity statin therapy PO KCL Continue amiodarone 200mg BID. Continue metoprolol 12.5mg BID Liver enzymes improving Hospitalist service assisting with management of medical issues. Appreciate input. Antibiotics stopped ECHO shows severely reduced systolic function with EF of 30-35% PT working with patient. Possible discharge in 1 to 2 days. At time of discharge patient will need LifeVest. Will repeat echo as outpatient in 40 days to assess LV systolic function and if still less than 35%, will need ICD placement. Attestations Medical Necessity Statement*: Care expected to cross 2 midnights. Patient continues to need IV diuresis. Coding Level of Care Code Acute Heavy Rail Train Operator for [facility] Fwd Diagnoses NSTEMI (non-ST elevated myocardial infarction) I21.4 Type 2 diabetes mellitus E11.9 Diabetes mellitus fpc insulin use: with long term care social worker use Hypertension I10 Hypertension type: essential hypertension UTI (urinary tract infection) N39.0 Ventricular tachycardia I47.2 Atrial fibrillation with RVR I48.91 Cardiogenic shock R57.0
[2020-08-13 17:28] LABS: Glucose Point of Care 104 mg/dL (70-110)
[2020-08-13 20:11] LABS: Glucose Point of Care 137 mg/dL (70-110)
[2020-08-13] MEDS: atorvastatin 40 mg Tablet PO (20:46)
[2020-08-14] VITALS (18 sets, daily range): BP systolic 95–112; BP diastolic 55–67; PULSE 64–81; RESP 12–24; TEMP 36.3–37.6; O2SAT 91–96
[2020-08-14] MEDS: ipratropium-albuterol 3 mL Neb INHALATION ×5 (04:34→21:04)
[2020-08-14 06:55] LABS: Glucose Point of Care 145 mg/dL (70-110)
[2020-08-14 08:17] LABS: Basophils % 0.4 %; Eosinophils # 0.1 10^3/uL (0.0-0.8); Eosinophils % 0.8 %; Hemoglobin 8.9 g/dL (11.7-16.6); Lymphocytes % 9.4 %; Mean Corpuscular HGB Conc 29.7 g/dL (30.0-36.0); Mean Corpuscular Hemoglobin 28.6 pg (28.0-34.0); Mean Corpuscular Volume 96.5 fL (80-94); Mean Platelet Volume 11.3 fL (7.4-10.4); Monocytes # 0.5 10^3/uL (0.2-0.9); Neutrophils # 8.47 10^3/uL (1.8-7.7); Neutrophils % 83.8 %; Nucleated Red Blood Cells % 0 %; Platelet Count 178 10^3/cmm (130-400); Red Blood Count 3.11 10^6/uL (4.1-5.3); Red Cell Distribution Width 15.5 % (12.1-15.1); White Blood Count 10.1 10^3/uL (4.0-10.0)
--- NOTE | 2020-08-14 08:42 | XR_ITS ---
WS: [id number] Exam: XR chest 1V portable [id number] Date/Time of Exam: 08/14/2020 8:45 AM Reason For Exam: congestive heart failure Infiltrates on the left show minimal improvement. There appears to be some increase in infiltrate in the mid and upper right lung since prior study. Heart size is stable. Improving pleural effusions. No pneumothorax. Monitoring leads superimpose the chest. XR/XR chest 1V portable [id number] IMPRESSION: 1. Slightly increasing pulmonary infiltrates on the right. Infiltrates on the l eft show minimal improvement. 2. Decreasing pleural effusions.
[2020-08-14 09:04] LABS: Alanine Aminotransferase 410 U/L (0-41); Albumin Level 4.1 g/dL (3.5-5.2); Alkaline Phosphatase 74 IU/L (40-130); Anion Gap 18.2 (5-19); Aspartate Amino Transferase 73 U/L (0-40); Blood Urea Nitrogen 35 mg/dL (8-23); Carbon Dioxide 26 mmol/L (22-29); Chloride 97 mmol/L (98-107); Globulin 2.2 g/dL (1.3-4.6); Glucose 134 mg/dL (65-115); Osmolality Calculated 296 mOsm/kg (285-295); Potassium 3.2 mmol/L (3.5-5.1); Sodium 138 mmol/L (136-145); Total Protein 6.3 g/dL (6.6-8.7)
[2020-08-14] MEDS: apixaban 5 mg Tablet PO ×2 (09:26→20:33)
[2020-08-14] MEDS: metoprolol tartrate 25 mg Tablet 12.5 MG PO ×2 (09:27→20:33)
[2020-08-14] MEDS: metOLazone 5 MG Tablet 2.5 MG PO (09:27)
[2020-08-14] MEDS: amiodarone 200 mg Tablet PO ×2 (09:28→17:30)
[2020-08-14] MEDS: clopidogrel 75 mg Tablet PO (09:29)
[2020-08-14] MEDS: bumetanide 0.25 mg/mL SDV 10 mL 2 MG IV ×2 (09:35→17:30)
[2020-08-14] MEDS: potassium chloride ER 20 mEq Tablet 40 MEQ PO (10:45)
--- NOTE | 2020-08-14 11:42 | PC.NURSE ---
Dr nation on unit with verbal instructions to stop med dose sliding scale insulin
[2020-08-14 11:49] LABS: Glucose Point of Care 248 mg/dL (70-110)
--- NOTE | 2020-08-14 14:50 | PM.PN ---
Subjective Subjective: Interval history: No new complaints today.?Well-controlled Medications: Reviewed: Yes Medication Review Details: Current Medications Acetaminophen (Acetaminophen 325 Mg Tablet) 650 mg PO Q6H PRN PRN Reason: MILD PAIN Al Hydrox/Mg Hydrox/Simethicone (Dtfv-Mnb-Nsollrqrq-Mariama 30 Ml Udc) 30 ml PO Q15M PRN PRN Reason: INDIGESTION Albuterol/Ipratropium (Ipratropium-Albuterol 3 Ml Neb) 3 ml INHALATION Q4H.RESPIRATORY [facility] Last Admin: 08/08/20 16:30 Dose: Not Given Documented by: Amiodarone HCl (Amiodarone 200 Mg Tablet) 200 mg PO BID [facility] Last Admin: 08/08/20 17:24 Dose: 200 mg Documented by: Aspirin (Aspirin 81 Mg Ec Tablet) 81 mg PO DAILY [facility] Last Admin: 08/08/20 08:25 Dose: 81 mg Documented by: Atorvastatin Calcium (Atorvastatin 40 Mg Tablet) 40 mg PO BEDTIME [facility] Last Admin: 08/07/20 20:14 Dose: 40 mg Documented by: Atropine Sulfate (Atropine 1 Mg/Ml Sdv 1 Ml) 0.5 mg IVP PRN PRN PRN Reason: Symptomatic bradycardia Atropine Sulfate (Atropine 1 Mg/Ml Sdv 1 Ml) 0.5 mg IVP PRN PRN PRN Reason: Symptomatic bradycardia Calcium Carbonate (Calcium Carbonate 500 Mg Chew Tablet) 500 mg PO Q6H PRN PRN Reason: INDIGESTION Last Admin: 08/07/20 20:15 Dose: 500 mg Documented by: Clopidogrel Bisulfate (Clopidogrel 75 Mg Tablet) 75 mg PO DAILY [facility] Last Admin: 08/08/20 08:25 Dose: 75 mg Documented by: Dextrose (Dextrose 50% Syringe 50 Ml) 25 ml IVP ONCE PRN; Protocol PRN Reason: hypoglycemia protocol Dextrose (Dextrose 50% Syringe 50 Ml) 50 ml IVP PRN PRN; Protocol PRN Reason: hypoglycemia protocol Fentanyl (Fentanyl 50 Mcg/Ml Inj 2ml) 50 mcg IVP PRN PRN PRN Reason: PAIN Glucagon (Glucagon 1 Mg/Ml Inj 1 Ml) 1 mg IM ONCE PRN; Protocol PRN Reason: Adult Acute Hypoglycemia Prot. Heparin Sodium (Beef Lung) (Heparin 5,000 Unit/Ml Inj 1 Ml) 0 unit IV PRN PRN; Protocol PRN Reason: Heparin weight-base protocol Last Admin: 08/08/20 03:18 Dose: 1,400 unit Documented by: Dextrose (D5w) 500 mls @ 100 mls/hr IV ONCE PRN; Protocol PRN Reason: Adult Acute Hypoglycemia Prot Amiodarone HCl 900 mg/Dextrose/ IV Miscellaneous Supplies 518 mls @ 0 mls/hr IV .Q0M MONICA; Protocol Last Titration: 08/06/20 12:45 Dose: 0 mg/min, 0 mls/hr Documented by: Heparin Sodium/Sodium Chloride (Heparin Drip) 25,000 unit in 500 mls @ 0 mls/hr IV .Q0M MONICA; Protocol Last Titration: 08/08/20 10:35 Dose: 14.5 unit/kg/hr, 20 mls/hr Documented by: Aztreonam 2,000 mg/ Sodium (Chloride) 100 mls @ 200 mls/hr IV Q12H MONICA; Protocol Last Infusion: 08/08/20 12:32 Dose: Infused Documented by: Norepinephrine Bitartrate 4 mg (/ Dextrose) 254 mls @ 0 mls/hr IV .Q0M [facility]ICA; Protocol Last Titration: 08/07/20 22:00 Dose: 0 mcg/min, 0 mls/hr Documented by: Amiodarone HCl 900 mg/Dextrose/ IV Miscellaneous Supplies 518 mls @ 0 mls/hr IV .Q0M MONICA; Protocol Last Titration: 08/07/20 15:05 Dose: 0 mg/min, 0 mls/hr Documented by: Vancomycin HCl 1,000 mg/ (Sodium Chloride) 250 mls @ 250 mls/hr IV Q12H MONICA; Protocol Last Infusion: 08/08/20 12:32 Dose: Infused Documented by: Ceftriaxone Sodium 1,000 mg/ (Sodium Chloride) 50 mls @ 100 mls/hr IV Q12H [facility]ICA; Protocol Last Infusion: 08/08/20 12:33 Dose: Infused Documented by: Clindamycin HCl/Dextrose (Cleocin) 600 mg in 50 mls @ 100 mls/hr IV Q8H [facility]ICA; Protocol Last Infusion: 08/08/20 18:59 Dose: Infused Documented by: Insulin Aspart (Insulin Aspart 100 Unit/1 Ml) 6 unit SUBCUT TIDAC [facility] Last Admin: 08/08/20 17:23 Dose: 6 unit Documented by: Insulin Aspart (Insulin Aspart 100 Unit/1 Ml) 0 unit SUBCUT WM&BEDTIME [facility]; Protocol Last Admin: 08/08/20 17:24 Dose: 6 unit Documented by: Insulin Glargine (Insulin Glargine 100 Units/1 Ml) 20 unit SUBCUT BEDTIME [facility] Last Admin: 08/07/20 20:08 Dose: 20 unit Documented by: Magnesium Hydroxide (Magnesium Hydroxide 30 Ml Udc) 30 ml PO DAILY PRN PRN Reason: CONSTIPATION Morphine Sulfate (Morphine 4 Mg/Ml Sdv 1 Ml) 2 mg IVP Q2H PRN PRN Reason: SEVERE PAIN Last Admin: 08/07/20 11:05 Dose: 2 mg Documented by: Naloxone HCl (Naloxone 0.4 Mg/Ml Sdv) 0.1 mg IVP Q2M PRN PRN Reason: RESPIRATORY RATE < 8/MIN Nitroglycerin (Nitroglycerin 0.4 Mg Sublingual Tablet) 0.4 mg SUBLINGUAL Q5M PRN PRN Reason: CHEST PAIN Ondansetron HCl (Ondansetron 2 Mg/Ml Sdv 2 Ml) 4 mg IVP Q6H PRN PRN Reason: NAUSEA AND VOMITING Last Admin: 08/08/20 09:11 Dose: 4 mg Documented by: Vitals/I&O/Wt Last Vital Signs Temp 98.0 F 08/14/20 11:04 Pulse 73 08/14/20 13:05 Resp 18 08/14/20 13:00 BP 112/67 08/14/20 11:04 Pulse Ox 96 08/14/20 13:00 08/13/20 08/14/20 08/14/20 22:59 06:59 14:59 Intake Total 470 / 810 340 / 340 Output Total 1600 / 2450 625 / 3075 755 / 755 Balance -1130 / -1640 -625 / -2265 -415 / -415 Weight last 48 hrs Weight 77.02 kg Weight 79.52 kg Physical Exam Narrative: EXAM NARRATIVE: GEN: Awake, alert and oriented, no acute distress CVS: S1S2 N RS: CTA B/L Abd: Soft, nt/nd , bs+ PUNCH PRESS OPERATOR: no focal neuro deficits Urinary Catheter Management^: Cantu: Cath Placed During This Visit: yes, but has since been removed by the nurse Reason for Continuing Indwelling Catheter: Accurate Measurement of Urinary Output in Critically Ill Patients Urinary Catheter Date of Insertion: 08/05/20 Urinary Catheter Time of Insertion: 00:35 Date Urinary Catheter Removed: 08/13/20 Time Urinary Catheter Discontinued: 14:52 Data : 08/15/20 04:25 08/15/20 04:25 A&P Assessment and plan (1) Sepsis: Status: Acute (2) Atrial fibrillation with RVR: Status: Acute (3) Ventricular tachycardia: Status: Acute (4) Pulmonary edema: Status: Acute (5) UTI (urinary tract infection): Status: Acute (6) Type 2 diabetes mellitus: Status: Acute Qualifiers: Diabetes mellitus fci insulin use: with diamond merchant use (7) STEMI (ST elevation myocardial infarction): Status: Acute Additional A&P Information #Sepsis, now resolved Leukocytosis currently resolved Possible pneumonia vs E.coli UTI earlier in course of admission Procal negative 08/06 Recived adequate course of treatment with aztreonam,vanc--> Ceftriaxone since 08/06-08/11 Blood cx negative to date Serial chest x-ray more consistent with pulmonary edema, however underlying infiltrates cannot be excluded,however now s/p adequate course of empiric treatment # NSTEMI Patient underwent PCI of left main/diagonal/left circumflex with Impella assisted procedure He tolerated procedure well, Impella Has subsequently been removed Off pressors, clinically improving Hospital course complic ated by [facility], currently on po amiodarone Management as per cardiology including diuresis management # Atrial fibrillation: Curently on a/c wih eliquis # Epistaxis, now resolved, rhino rocket removed 08/12 # Type 2 diabetes Hypoglycemic overnight, blood sugar down to 60s. Lantus 16 units has been held now. Continue premeal insulin at 6 units 3 times daily, moderate insulin scale changed to mild scale additionally, will monitor insulin requirements over the next 24 hours and titrate accordingly # Transaminitis, likely from shock liver, improving Full code Cardiac diet DVT prophylaxis : ofeliaqupa Ruffin Medical Necessity Statement*: per admitting Coding Level of Care Code Acute Vice President Planning for g Fwd Diagnoses Sepsis A41.9 Atrial fibrillation with RVR I48.91 Ventricular tachycardia I47.2 Pulmonary edema J81.1 UTI (urinary tract infection) N39.0 Type 2 diabetes mellitus E11.9 Diabetes mellitus fci insulin use: with fci use STEMI (ST elevation myocardial infarction) I21.3
[2020-08-14 16:48] LABS: Glucose Point of Care 130 mg/dL (70-110)
[2020-08-14 20:21] LABS: Glucose Point of Care 191 mg/dL (70-110)
[2020-08-14] MEDS: atorvastatin 40 mg Tablet PO (20:33)
--- NOTE | 2020-08-14 23:14 | P.PN_ITS ---
Subjective Subjective: Interval history: Patient is doing well. No chest pain or palpitaitons. Still short of breath Vitals/I&O/Wt Last Vital Signs Temp 99.6 F 08/14/20 19:18 Pulse 77 08/14/20 22:00 Resp 18 08/14/20 21:04 BP 107/60 08/14/20 19:18 Pulse Ox 96 08/14/20 21:04 08/14/20 08/14/20 08/15/20 14:59 22:59 06:59 Intake Total 340 / 340 340 / 680 Output Total 755 / 755 375 / 1130 Balance -415 / -415 -35 / -450 Weight last 48 hrs Weight 169 lb 12.8 oz Weight 175 lb 5 oz Physical Exam Narrative: EXAM NARRATIVE: General: Alert and oriented x 3 Normal rate and rhythm, S1, S2, has grade 3/6 systolic murmur No acute respiratory distress, mild crakcles Abdomen is soft nontender EOMI No neurological deficit 1+ lower extremity edema Appropriate mood and affect Urinary Catheter Management^: Cantu: Cath Placed During This Visit: yes, but has since been removed by the nurse Reason for Continuing Indwelling Catheter: Accurate Measurement of Urinary Output in Critically Ill Patients Urinary Catheter Date of Insertion: 08/05/20 Urinary Catheter Time of Insertion: 00:35 Date Urinary Catheter Removed: 08/13/20 Time Urinary Catheter Discontinued: 14:52 Data : 08/14/20 08:09 08/14/20 08:34 A&P Assessment and plan (1) NSTEMI (non-ST elevated myocardial infarction): Status: Acute (2) Type 2 diabetes mellitus: Status: Acute Qualifiers: Diabetes mellitus principal systems architect insulin use: with residential use (3) Hypertension: Status: Acute Qualifiers: Hypertension type: essential hypertension Qualified Code(s): I10 - Essential (primary) hypertension (4) UTI (urinary tract infection): Status: Acute (5) Ventricular tachycardia: Status: Acute (6) Atrial fibrillation with RVR: Status: Acute (7) Cardiogenic shock: Status: Acute Patient presented late with acute SC evidenced by significantly elevated troponin that trended down and spontaneous temporary chest pain resolution. Coronary angiogram demonstrated, likely culprit was SVG to OM/diagonal that is ostially occluded. SVG to RCA is occluded as well. COBB to LAD is patent. Patient underwent attempt for PCI of LCx/left main artery. Patient became unstable with engagement of guide catheter. Patient's pressure dampened. We were able to perform balloon angioplasty of the LCx that improved flow significantly in LCx(left main not ballooned). However patient developed pulmonary edema and could not stay still. He also went in afib with RVR. We decided to stop procedure there and stabilize patient with diuresis and rate control. Patient was sent back to [facility]. In the PM, patient became tachycardia with wide complex tachycardia secondary to VT. Patient did not lose pulse or became unconscious. He became hypotensive with significant chest pain. He was cardioverted x 2 with successful return to normal sinus rhythm. Patient was started on Lidocaine gtt and amiodarone gtt (now lidocaine gtt stopped and amio switched to PO) Patient was unstable with recurrent VT, chest pain and pulmonary edema. Given his severely reduced LV systolic function, marked dampening of pressures with left main engagement, ischemic myocardium other than COBB/LAD territory, we decided to perform high risk PCI of left main/diagonal/left circumflex artery. This was Impella assisted procedure. Patient did well during the procedure. We left the Impella in as patient was still hypotensive post procedure and was removed later. Continue Eliquis and Plavix. Aspirin has been stopped High intensity statin therapy PO KCL Continue amiodarone 200mg BID. Continue metoprolol 12.5mg BID Liver enzymes improving Hospitalist service assisting with management of medical issues. Appreciate input. Antibiotics stopped ECHO shows severely reduced systolic function with EF of 30-35% PT working with patient. Patient was initially planned to be discharged today but his creatinine worsened and he is still volume overloaded. Will continue with IV diuresis. At time of discharge patient will need LifeVest. Will repeat echo as outpatient in 40 days to assess LV systolic function and if still less than 35%, will need ICD placement. Attestations Medical Necessity Statement*: Care expected to cross 2 midnights. Patient nee ds IV diuresis Coding Level of Care Code Acute Grave Digger for [facility] Fwd Diagnoses NSTEMI (non-ST elevated myocardial infarction) I21.4 Type 2 diabetes mellitus E11.9 Diabetes mellitus principal systems architect insulin use: with principal systems architect use Hypertension I10 Hypertension type: essential hypertension UTI (urinary tract infection) N39.0 Ventricular tachycardia I47.2 Atrial fibrillation with RVR I48.91 Cardiogenic shock R57.0
[2020-08-15] VITALS (7 sets, daily range): BP systolic 100–109; BP diastolic 60–66; PULSE 73–76; RESP 14–23; TEMP 36.3–36.8; O2SAT 92–96
[2020-08-15 05:01] LABS: Basophils % 0.2 %; Eosinophils # 0.1 10^3/uL (0.0-0.8); Eosinophils % 0.6 %; Hematocrit 26.8 % (42.0-52.0); Hemoglobin 8.6 g/dL (11.7-16.6); Lymphocytes # 0.8 10^3/uL (0.8-4.8); Lymphocytes % 7.5 %; Mean Corpuscular HGB Conc 32.1 g/dL (30.0-36.0); Mean Corpuscular Hemoglobin 28.3 pg (28.0-34.0); Mean Corpuscular Volume 88.2 fL (80-94); Mean Platelet Volume 11.2 fL (7.4-10.4); Monocytes # 0.8 10^3/uL (0.2-0.9); Monocytes % 7.1 %; Neutrophils % 84.2 %; Nucleated Red Blood Cells % 0 %; Platelet Count 212 10^3/cmm (130-400); Red Blood Count 3.04 10^6/uL (4.1-5.3); Red Cell Distribution Width 15.3 % (12.1-15.1); White Blood Count 10.6 10^3/uL (4.0-10.0)
[2020-08-15 05:20] LABS: Alanine Aminotransferase 298 U/L (0-41); Albumin Level 4.3 g/dL (3.5-5.2); Alkaline Phosphatase 70 IU/L (40-130); Anion Gap 19.2 (5-19); Aspartate Amino Transferase 48 U/L (0-40); Blood Urea Nitrogen 46 mg/dL (8-23); Calcium 9.1 mg/dL (8.5-10.5); Carbon Dioxide 27 mmol/L (22-29); Chloride 97 mmol/L (98-107); Globulin 2.2 g/dL (1.3-4.6); Glucose 170 mg/dL (65-115); Osmolality Calculated 306 mOsm/kg (285-295); Potassium 3.2 mmol/L (3.5-5.1); Sodium 140 mmol/L (136-145); Total Protein 6.5 g/dL (6.6-8.7)
[2020-08-15 06:59] LABS: Glucose Point of Care 181 mg/dL (70-110)
[2020-08-15] MEDS: metOLazone 5 MG Tablet 2.5 MG PO (08:48)
[2020-08-15] MEDS: metoprolol tartrate 25 mg Tablet 12.5 MG PO (08:48)
[2020-08-15] MEDS: amiodarone 200 mg Tablet PO (08:49)
[2020-08-15] MEDS: clopidogrel 75 mg Tablet PO (08:49)
[2020-08-15] MEDS: apixaban 5 mg Tablet PO (08:49)
[2020-08-15] MEDS: ipratropium-albuterol 3 mL Neb INHALATION (09:08)
--- NOTE | 2020-08-15 09:12 | PM.DCS ---
Discharge Providers Date of Admission: 08/02/20 15:43 Date of Discharge: August 15, 2020 Attending Provider at Admission: Betito Jolly M.D Attending Provider at Discharge: Betito Jolly M.D Diagnoses at Discharge Discharge Diagnosis (1) NSTEMI (non-ST elevated myocardial infarction): Status: Resolved (2) Type 2 diabetes mellitus: Status: Acute Qualifiers: Diabetes mellitus prison insulin use: with manager long term care use (3) Hypertension: Status: Acute Qualifiers: Hypertension type: essential hypertension Qualified Code(s): I10 - Essential (primary) hypertension (4) UTI (urinary tract infection): Status: Resolved (5) Ventricular tachycardia: Status: Resolved (6) Atrial fibrillation with RVR: Status: Resolved (7) Cardiogenic shock: Status: Resolved Reason for Visit Reason for Visit: CP Brief History: 74 year old male with PMH of hypertension, diabetes, coronary artery disease s/p CABG x5 at [facility] in 2007 presented with 3 days of on and off chest pain. Substernal and left sided severe chest pain. Last major episode was last night.This is associated with shortness of breath. Patient is now chest pain free. On presentation, EKG showed diffuse ST depressions. Initial troponin was 3200 and trended down. Patient was taken to the laboratory apparatus glass blower. Coronary angiography showed occluded SVG grafts. Only COBB to LAD is patent. RCA is fountain pen nibs inspector. Left main to LCx has severe disease for which there will be staged PCI. Hospital Course Hospital Course 74 year old male with PMH of hypertension, diabetes, coronary artery disease s/p CABG x5 at [facility] in 2007 presented with 3 days of on and off chest pain. Substernal and left sided severe chest pain. Last major episode was last night.This is associated with shortness of breath. Patient is now chest pain free. On presentation, EKG showed diffuse ST depressions. Initial troponin was 3200 and trended down. Patient was taken to the laboratory apparatus glass blower. Coronary angiography showed occluded SVG grafts. Only COBB to LAD is patent. RCA is fountain pen nibs inspector. Left main to LCx has severe disease for which there will be staged PCI. Patient was found to have UTI and was treated for that. LV EF was found to be severely reduced and was 30-35%. Patient was diuresed and was brought back to laboratory apparatus glass blower for staged LCx/ Left main PCI. However with engagement of catheter, h decompensated. We were able to perform balloon angioplasty of the LCx that improved flow. Stents could not be placed as patient went into pulmonary edema. He was stabilized but overnight he went into afib and then later into VT. He was cardiverted x 2 with return of normal sinus rhythm. Next morning secondary to recurrent VT, NSTEMI we decided to perform high risk PCI of Left main/ diagonal artery/ LCx. with impella support. At this time patient had gone into cardiogenic shock requiring pressor support. He had successful PCI and impella was left in place for 2 days as patient was still in cardiogenic shock. He developed signs of infection and was empirically treated for possible pneumonia. His diabetes and medical issues were managed by hospitalist service. Impella was successfully weaned and removed. Patient remained very wean requiring physical therapy. His liver showed signs of shock liver with markedly abnormal LFTs. Lactate went over 6 but then normalized. Patient was anticoagulated because of afib. His rhythm stayed stable after revascularization. Patient was fitted with and discharged with lifevest. He had a signficant nose bleed and his triple therapy was switched to Eliquis and plavix. He was also put on amiodarone 200mg BID. He diuresed well with Bumex. He was discharged home with home health per PT recs. He will follow with cardiology as outpatient. His creatinine was elevated and bumex held for 1 day. Will check BMP as outpatient in 4 days Physical Exam Narrative: EXAM NARRATIVE: General: Alert and oriented x 3 Normal rate and rhythm, S1, S2, has grade 3/6 systolic murmur No acute respiratory distress, mild crakcles Abdomen is soft nontender EOMI No neurological deficit 1+ lower extremity edema Appropriate mood and affect Urinary Catheter Management^: Cantu: Cath Placed During This Visit: yes, but has since been removed by the nurse Reason for Continuing Indwelling Catheter: Accurate Measurement of Urinary Output in Critically Ill Patients Urinary Catheter Date of Insertion: 08/05/20 Urinary Catheter Time of Insertion: 00:35 Date Urinary Catheter Removed: 08/13/20 Time Urinary Catheter Discontinued: 14:52 Discharge Data Data Completed and Pending: Completed Studies During Hospitalization Category Date Time Status GUTTER INSTALLER request for service Routin e Exams 08/04/20 05:56 Completed GUTTER INSTALLER request for service Routin e Exams 08/07/20 13:20 Completed GUTTER INSTALLER request for service Stat Exams 08/02/20 14:01 Completed XR chest 1V [id number] Routine Exams 08/07/20 10:25 Completed XR chest 1V elaine ble [id number] Routine Exams 08/08/20 05:46 Completed XR chest 1V elaine ble [id number] Routine Exams 08/09/20 06:00 Completed XR chest 1V elaine ble [id number] Routine Exams 08/10/20 09:41 Completed XR chest 1V elaine ble [id number] Routine Exams 08/12/20 12:25 Completed XR chest 1V elaine ble [id number] Routine Exams 08/14/20 08:42 Completed XR chest 1V elaine ble 24561 Stat Exams 08/02/20 12:00 Completed XR chest 1V elaine ble 56535 Stat Exams 08/04/20 23:04 Completed XR chest 2V* 7104 6 Routine Exams 08/04/20 Completed CV echo complete* [id number] Routine Ultrasound 08/03/20 06:00 Completed CV echo limited 9 3308 Routine Ultrasound 08/04/20 07:08 Completed CV echo limited 9 3308 Routine Ultrasound 08/05/20 11:52 Completed CV echo limited 9 3308 Stat Ultrasound 08/05/20 17:46 Completed CV guide vascular access [id number] Rout ine Ultrasound 08/05/20 Completed Pending at discharge Category Date Time Status GUTTER INSTALLER request for service Routin e Exams 08/05/20 Taken Labs from last 24 hours 08/15/20 08/15/20 08/15/20 06:50 04:25 04:25 WBC 10.6 H RBC 3.04 L Hgb 8.6 L Hct 26.8 L MCV 88.2 D MCH 28.3 MCHC 32.1 D RDW 15.3 H Plt Count 212 MPV 11.2 H Neut % (Auto) 84.2 Lymph % (Auto) 7.5 Sharkey % (Auto) 7.1 Eos % (Auto) 0.6 Baso % (Auto) 0.2 Neut # (Auto) 8.90 H Lymph # (Auto) 0.8 Sharkey # (Auto) 0.8 Eos # (Auto) 0.1 Baso # (Auto) 0.0 Nucleated RBC % (a uto) 0 Nucleated RBCs # 0.0 Sodium 140 Potassium 3.2 L Chloride 97 L Carbon Dioxide 27 Anion Gap 19.2 H BUN 46 H Creatinine 1.6 H GFR Calculation Not Reportable Glucose 170 H POC Glucose 181 H Calculated Osmolal ity 306 H Calcium 9.1 Total Bilirubin 1.0 AST 48 H ALT 298 H Alkaline Phosphata se 70 Total Protein 6.5 L Albumin 4.3 Globulin 2.2 08/14/20 08/14/20 08/14/20 20:03 16:44 11:33 WBC RBC Hgb Hct MCV MCH MCHC RDW Plt Count MPV Neut % (Auto) Lymph % (Auto) Sharkey % (Auto) Eos % (Auto) Baso % (Auto) Neut # (Auto) Lymph # (Auto) Sharkey # (Auto) Eos # (Auto) Baso # (Auto) Nucleated RBC % (a uto) Nucleated RBCs # Sodium Potassium Chloride Carbon Dioxide Anion Gap BUN Creatinine GFR Calculation Glucose POC Glucose 191 H 130 H 248 H Calculated Osmolal ity Calcium Total Bilirubin AST ALT Alkaline Phosphata se Total Protein Albumin Globulin Vitals: Last Vital Signs Temp 98.2 F 08/15/20 03:35 Pulse 74 08/15/20 09:09 Resp 18 08/15/20 09:09 BP 109/66 08/15/20 03:35 Pulse Ox 94 08/15/20 09:09 Discharge Plan Discharge Patient Disposition: Home Condition: Stable Prescriptions: New atorvastatin 40 mg Tablet 40 mg PO BEDTIME Qty: 90 RF: 3 Pacerone 200 mg Tablet 200 mg PO BID Qty: 120 RF: 1 clopidogrel 75 mg Tablet 75 mg PO DAILY Qty: 90 RF: 3 nitroglycerin 0.4 mg Tablet, Sublingual 0.4 mg sublingual Q5M PRN (Reason: Chest Pain) Qty: 60 RF: 1 metoprolol tartrate 25 mg Tablet 12.5 mg PO BID@0900,2100 Qty: 120 RF: 3 Eliquis 5 mg Tablet 5 mg PO BID@0900,2100 Qty: 120 RF: 3 bumetanide 1 mg tablet 1 mg PO BID Qty: 120 RF: 2 potassium chloride 20 mEq tablet extended release 20 meq PO DAILY Qty: 30 RF: 1 Continued lutein 6 mg Capsule 6 mg PO DAILY@09 RF: 0 cranberry extract 250 mg Tablet 250 mg PO DAILY@09 RF: 0 Victoza 3-Ruben 0.6 mg/0.1 mL (18 mg/3 mL) pen injector 0.6 mg SUBCUT DAILY@12 RF: 0 krill oil 1,380-312-30-80 mg Capsule 1 cap PO DAILY@09 RF: 0 No Action simethicone [Gas Relief (simethicone)] 125 mg capsule 125 mg PO DAILY PRN (Reason: abdominal distention) 30 Days Qty: 30 RF: 0 Discharge Orders: Discharge Order (Routine); Ordered 08/15/20 Ordered By: Betito Jolly Other Ambulatory Orders: Basic Metabolic Panel (Routine) Timeframe: 4 Days Facility: [facility] - Location: Lab - Main Lab Ordered By: Betito Jolly Referrals: [facility] [place] [facility] [Other] - 08/18/20 10:15 am (You have a followup appointment on August 18 at 10:15am at the [facility]. Any questions or changes, please give them a call at [phone]) [facility] [Outside] Betito Jolly M.D [Physician] - 1 month ([facility] will be calling to schedule a cardiology followup to be seen in 1 Month. If you don't hear from them by Monday, please give them a call. thank you) Heather Pastor FNP [Nurse Practitioner] - 7-10 days ([facility] will be calling to schedule a post poricedure followup to be seen in 7-10 days. If you don't hear from them by Monday afternoon, please give them a call. thank you) Discharge Diet: Cardiac Discharge Activity: Increase activity as tolerated Patient Instructions: Metoprolol (By mouth), Bumetanide (By mouth), Amiodarone (By mouth), Nitroglycerin, Rapid Release (By mouth), Clopidogrel (By mouth), Myocardial Infarction (DC) Activity Restrictions/Additional Instructions: Please do not lift more than 5 pounds of weight over the next 5 days. Weigh your self daily, on any given day if you notice more than 2 pounds of weight gain, take extra dose of Bumetanide. Low sodium diet. Limit fluid intake to 1.5 Liters every day Discharge Attestations Time Spent in Discharge Care*: greater than 30 min Quality Metrics Clinical Quality Measures During this hospital stay, did patient experience: None Coding Level of Care Code Acute Chg FW DC note Diagnoses NSTEMI (non-ST elevated myocardial infarction) I21.4 Type 2 diabetes mellitus E11.9 Diabetes mellitus prison insulin use: with prison use Hypertension I10 Hypertension type: essential hypertension UTI (urinary tract infection) N39.0 Ventricular tachycardia I47.2 Atrial fibrillation with RVR I48.91 Cardiogenic shock R57.0
--- NOTE | 2020-08-15 09:32 | PC.SOCIAL ---
IMM Update Pg.2 of IMM updated and explained to patient who verbalized understanding. Copy provided.
[2020-08-15] MEDS: potassium chloride ER 20 mEq Tablet 40 MEQ PO (10:07)
== END 2020-08-15 12:15 | disposition home health service (06) | DRG 215 ==
LOC: ER 14:09 → CCL 14:51 → CSU 15:43 → ICU 08-04 19:32 → CSU 08-04 23:16 → ICU 08-04 23:29 → CSU 08-11 14:56 → ICU 08-11 16:56 → CSU 08-12 05:36
PROVIDERS: Emergency Medicine; Hospitalist; Internal Medicine; Internal Medicine Cardiovascular Disease; Admitting Provider Internal Medicine; Emergency Provider Family Medicine; Visit Provider Internal Medicine
PROC: 027237Z Dilation of Coronary Artery, Three Arteries with Four or More Drug-eluting Intraluminal Devices, Percutaneous Approach (ICD-10-PCS; principal; 2020-08-02 14:00)
PROC: 5A2204Z Restoration of Cardiac Rhythm, Single (ICD-10-PCS; principal; 2020-08-04 06:00)
PROC: 02WAXRZ Revision of Short-term External Heart Assist System in Heart, External Approach (ICD-10-PCS; principal; 2020-08-05 07:00)
DX: I21.4 Non-ST elevation (NSTEMI) myocardial infarction (principal); R57.0 Cardiogenic shock; J81.0 Acute pulmonary edema; K72.00 Acute and subacute hepatic failure without coma; A41.9 Sepsis, unspecified organism; J18.9 Pneumonia, unspecified organism; I25.719 Atherosclerosis of autologous vein coronary artery bypass graft(s) with unspecified angina pectoris; N39.0 Urinary tract infection, site not specified; I47.2 Ventricular tachycardia; E87.1 Hypo-osmolality and hyponatremia; I48.91 Unspecified atrial fibrillation; E87.6 Hypokalemia; E87.70 Fluid overload, unspecified; R04.0 Epistaxis; D64.9 Anemia, unspecified; E11.649 Type 2 diabetes mellitus with hypoglycemia without coma; E11.65 Type 2 diabetes mellitus with hyperglycemia; I10 Essential (primary) hypertension; B96.20 Unspecified Escherichia coli [E. coli] as the cause of diseases classified elsewhere; I25.5 Ischemic cardiomyopathy; Z79.899 Other long term (current) drug therapy; Z87.891 Personal history of nicotine dependence; I25.2 Old myocardial infarction
CPT/HCPCS: 33990; 33992; 36415; 36416; 36600; 51702; 71045; 71046; 76937; 80048; 80053; 80076; 80202; 81001; 82009; 82140; 82803; 82962; 83036; 83605; 83735; 83880; 84100; 84145; 84484; 85014; 85018; 85025; 85347; 85378; 85730; 86850; 86900; 86920; 87040; 87077; 87086; 87186; 87426; 92920; 93005; 93306; 93308; 93459; 94640; 96372; 96374; 97110; 97116; 97163; 97166; 97530; 97535; 99285; C1725; C1760; C1769; C1874; C1887; C1894; C9113; C9600; C9601; J0282; J0696; J1100; J1160; J1644; J1650; J1815 ×2; J1940; J1956; J2001; J2060; J2250; J2270; J2370; J2405; J3010; J3370; J3475; J3480; J3490; J7030; J7040; J7050; J7060; P9041; P9047; Q0163; Q9967

== ENCOUNTER 2020-08-24 16:22 | Emergency (ER) | payer MEDICARE, SELFPAY ==
[2020-08-24 16:48] VITALS: BP 106/65; PULSE 78; RESP 16; TEMP 36.7; O2SAT 99
--- NOTE | 2020-08-24 16:56 | ED_ITS ---
Documented by User: Juan Valdivia DO 08/25/20 06:08 HPI - Epistaxis General: Chief complaint: Epistaxis Stated complaint: nose bleed Time Seen by Provider: 08/24/20 16:28 History of Present Illness: HPI Narrative: 84-year-old male who presents to the emergency room with complaints of epistaxis primarily from the left nare he is on Plavix and Eliquis Plavix because of recent stenting. He has a severe ischemic cardiomyopathy and wears a LifeVest. He was seen last week for this and had silver nitrate cauterization in the nose and it has recurred now. It is still draining just a small amount when he arrives here. MD complaint: epistaxis Location: left nostril Onset (ago): hour(s) Duration: intermittent Context: history of previous and other anticoagulant use (Eliquis and Plavix) Associated symptoms: Reports other; Deny fever(s), headache(s), sinus pain, syncope, vomiting or weakness Treatment prior to arrival: nose pinching, head leaned forward and stuffed nose with tissue Review of Systems Const: Denies: fever(s) ENMT: Denies: sinus pain Card: Denies: syncope Resp: Denies: dyspnea, productive cough or non-productive cough GI: Denies: vomiting : Denies: flank pain, dysuria, urinary frequency or urinary urgency Skin/Breast: Denies: rash or pruritus Neuro: Denies: headache(s) PFS ED PFSH: Medical History Abnormal colonoscopy Polypectomy BPH (benign prostatic hyperplasia) Diverticula of colon Hypertension Pulmonary edema Type 2 diabetes mellitus Surgical History S/P CABG (coronary artery bypass graft) 5 vessel bypass Family History Denies family history of Cancer Social History Smoking and tobacco status: former smoker Alcohol intake: never Household members: family Housing: House Physical Exam Const: COMMON NORMALS: no acute distress GENERAL APPEARANCE: cooperative and comfortable ORIENTATION/CONSCIOUSNESS: Yes awake, Yes oriented to person, Yes oriented to place and Yes oriented to time HENMT: COMMON NORMALS: normocephalic, atraumatic and hearing grossly normal bilaterally HEAD & SCALP: normocephalic and atraumatic OTHER: Mild epistaxis from the left nare after placement of a Rhino Rocket in the left nare patient coughed out a large clot from the pharynx. He continued to have a small amount of oozing so the Rhino Rocket was inflated slightly more. Neck/C-Spine: COMMON NORMALS: no JVD Resp: COMMON NORMALS: normal respiratory effort, No retractions, No use of accessory muscles and clear to auscultation bilaterally AUSCULTATION: clear to auscultation bilaterally Cardio: COMMON NORMALS: no JVD, regular rate, regular rhythm and No murmurs present (Cardio) RATE: regular rate RHYTHM: regular rhythm Extremity: COMMON NORMALS: normal to inspection, capillary refill normal, no clubbing, cyanosis or edema, no calf tenderness and no pedal edema Neuro: SENSORIUM/ORIENTATION: Yes oriented to person, Yes oriented to place and Yes oriented to time Skin: COMMON NORMALS: no rashes or lesions noted GENERAL SKIN EXAM: no rashes or lesions noted Procedures Epistaxis Control Time Out Performed: Yes Nostril: bilateral Direct Inspection: yes and anterior source identified Clots Removed by: blowing nose Cautery Used: none Device Inserted: hemostatic balloon Patient Tolerated Procedure: well and no complications Course Vital Signs: Vital signs: Vital Signs Temperature 98.0 F 08/24/20 16:48 Pulse Rate 78 08/24/20 16:48 Respiratory Rate 16 08/24/20 16:48 Blood Pressure 106/65 08/24/20 16:48 Pulse Oximetry 99 08/24/20 16:48 MDM - Epistaxis MDM Narrative: Medical decision making narrative: Rhino Rocket initially placed on the patient arrived on the left. This significantly slowed but did not stop the bleeding. Reexamined it appeared we had to place a little too deep and some of the anterior bleeding was still ongoing. It was repositioned in the seem to stop but we are about to discharge him and it began bleeding again. I contacted Dr. Caicedo who recommend placing 1 in the right nare as well and then if it did not stop to contact him. Placed a Rhino Rocket in the right nare and we are observing the patient for a time to ensure it had stopped. At change of shift care turned over to Dr. Matos. He will check on the patient approximately 30 minutes if there is still ongoing bleeding the plan is to contact Dr. Caicedo if it is stopped he can be discharged home for follow-up with outpatient with Dr. Caicedo. The daughter who is with the patient asked about changing the medications. Advised her that she should follow-up with Dr. Goodson for that Dr. Goodson happened to be in the department for another issue and informed him of the patient's presence in the emergency room well as his current condition. Daughter also asked about changing his diuretics. He is not in any sign of heart failure at this time also deferred that to his primary care physician. Lab Data: Labs: Lab Results 08/24/20 Range/Units 17:00 WBC 7.0 (4.0-10.0) 10^3/ uL RBC 3.46 L (4.1-5.3) 10^6/u L Hgb 9.7 L (11.7-16.6) g/dL Hct 32.2 L (42.0-52.0) % MCV 93.1 (80-94) fL MCH 28.0 (28.0-34.0) pg MCHC 30.1 (30.0-36.0) g/dL RDW 15.9 H (12.1-15.1) % Plt Count 227 (130-400) 10^3/c mm MPV 10.4 (7.4-10.4) fL Neut % (Auto) 71.6 % Lymph % (Auto) 15.2 % Bureau % (Auto) 9.5 % Eos % (Auto) 2.7 % Baso % (Auto) 0.7 % Neut # (Auto) 5.04 (1.8-7.7) 10^3/u L Lymph # (Auto) 1.1 (0.8-4.8) 10^3/u L Bureau # (Auto) 0.7 (0.2-0.9) 10^3/u L Eos # (Auto) 0.2 (0.0-0.8) 10^3/u L Baso # (Auto) 0.1 (0.0-0.1) 10^3/u L Nucleated RBC % (a uto) 0 % Nucleated RBCs # 0.0 /100WBC Discharge Plan Discharge Patient Disposition: Home Clinical Impression: Epistaxis Condition: Stable Prescriptions: New cephalexin 500 mg capsule 500 mg PO QID 7 Days Qty: 28 RF: 0 No Action simethicone [Gas Relief (simethicone)] 125 mg capsule 125 mg PO DAILY PRN (Reason: abdominal distention) 30 Days Qty: 30 RF: 0 lutein 6 mg Capsule 6 mg PO DAILY@09 RF: 0 cranberry extract 250 mg Tablet 250 mg PO DAILY@09 RF: 0 Victoza 3-Ruben 0.6 mg/0.1 mL (18 mg/3 mL) pen injector 0.6 mg SUBCUT DAILY@12 RF: 0 [id number]-ast [krill oil] 1,000-150-52-80 mg Capsule 1 cap PO DAILY@09 RF: 0 nitroglycerin 0.4 mg Tablet, Sublingual 0.4 mg sublingual Q5M PRN (Reason: Chest Pain) Qty: 60 RF: 1 metoprolol tartrate 25 mg Tablet 12.5 mg PO BID@0900,2100 Qty: 120 RF: 3 Eliquis 5 mg Tablet 5 mg PO BID@00,2100 Qty: 120 RF: 3 atorvastatin 40 mg tablet 40 mg PO BEDTIME@2099 RF: 0 Pacerone 200 mg tablet 200 mg PO BID@00,2100 RF: 0 clopidogrel 75 mg tablet 75 mg PO DAILY@09 RF: 0 bumetanide 1 mg tablet 0.5 mg PO BID@, RF: 0 potassium chloride 20 mEq tablet extended release 20 meq PO DAILY@09 RF: 0 Discharge Orders: Discharge ED (Routine); Ordered 08/24/20 Ordered By: Noe Matos Referrals: Hao Caicedo MD [Physician] - () Discharge Diet: Advance as tolerated Discharge Activity: Resume usual activity Patient Instructions: Epistaxis (ED) Coding Level of Care Code ED Press And Blow Machine Tender for Khoig Fwd Exam Detailed Documented by User: Noe Matos MD 08/24/20 18:55 HPI - Epistaxis General: Chief complaint: Epistaxis Stated complaint: nose bleed Time Seen by Provider: 08/24/20 16:28 PFSH ED PFSH: Medical History Abnormal colonoscopy Polypectomy BPH (benign prostatic hyperplasia) Diverticula of colon Hypertension Pulmonary edema Type 2 diabetes mellitus Surgical History S/P CABG (coronary artery bypass graft) 5 vessel bypass Family History Denies family history of Cancer Social History Smoking and tobacco status: former smoker Alcohol intake: never Household members: family Housing: House Course Vital Signs: Vital signs: Vital Signs Temperature 98.0 F 08/24/20 16:48 Pulse Rate 78 08/24/20 16:48 Respiratory Rate 16 08/24/20 16:48 Blood Pressure 106/65 08/24/20 16:48 Pulse Oximetry 99 08/24/20 16:48 MDM - Epistaxis MDM Narrative: Medical decision making narrative: Patient presents with a nosebleed and is on Eliquis as well. Her splint had placed 2 packings and his bleeding is since stopped. Checking at 6:30 AM at [address] Goodson and seen patient here and recommended stopping his Eliquis. He will start taking 81 mg aspirin tomorrow instead of his Eliquis. I spoke at length with patient and about this and he understands he is going to stop his Eliquis and will take a baby aspirin daily. I spoke to Dr. Caicedo of ENT who wants to see the patient on Monday in his clinic. I informed patient of this as well and will set up an appointment. He is to return if worsening. Lab Data: Labs: Lab Results 08/24/20 Range/Units 17:00 WBC 7.0 (4.0-10.0) 10^3/ uL RBC 3.46 L (4.1-5.3) 10^6/u L Hgb 9.7 L (11.7-16.6) g/dL Hct 32.2 L (42.0-52.0) % MCV 93.1 (80-94) fL MCH 28.0 (28.0-34.0) pg MCHC 30.1 (30.0-36.0) g/dL RDW 15.9 H (12.1-15.1) % Plt Count 227 (130-400) 10^3/c mm MPV 10.4 (7.4-10.4) fL Neut % (Auto) 71.6 % Lymph % (Auto) 15.2 % Bureau % (Auto) 9.5 % Eos % (Auto) 2.7 % Baso % (Auto) 0.7 % Neut # (Auto) 5.04 (1.8-7.7) 10^3/u L Lymph # (Auto) 1.1 (0.8-4.8) 10^3/u L Bureau # (Auto) 0.7 (0.2-0.9) 10^3/u L Eos # (Auto) 0.2 (0.0-0.8) 10^3/u L Baso # (Auto) 0.1 (0.0-0.1) 10^3/u L Nucleated RBC % (a uto) 0 % Nucleated RBCs # 0.0 /100WBC Discharge Plan Discharge Patient Disposition: Home Clinical Impression: Epistaxis Condition: Stable Prescriptions: New cephalexin 500 mg capsule 500 mg PO QID 7 Days Qty: 28 RF: 0 No Action simethicone [Gas Relief (simethicone)] 125 mg capsule 125 mg PO DAILY PRN (Reason: abdominal distention) 30 Days Qty: 30 RF: 0 lutein 6 mg Capsule 6 mg PO DAILY@09 RF: 0 cranberry extract 250 mg Tablet 250 mg PO DAILY@09 RF: 0 Victoza 3-Ruben 0.6 mg/0.1 mL (18 mg/3 mL) pen injector 0.6 mg SUBCUT DAILY@12 RF: 0 [id number]-liv-uxdrixu-ast [krill oil] 1,927-681-40-80 mg Capsule 1 cap PO DAILY@09 RF: 0 nitroglycerin 0.4 mg Tablet, Sublingual 0.4 mg sublingual Q5M PRN (Reason: Chest Pain) Qty: 60 RF: 1 metoprolol tartrate 25 mg Tablet 12.5 mg PO BID@899,2099 Qty: 120 RF: 3 Eliquis 5 mg Tablet 5 mg PO BID@899,2099 Qty: 120 RF: 3 atorvastatin 40 mg tablet 40 mg PO BEDTIME@2099 RF: 0 Pacerone 200 mg tablet 200 mg PO BID@899,2099 RF: 0 clopidogrel 75 mg tablet 75 mg PO DAILY@ RF: 0 bumetanide 1 mg tablet 0.5 mg PO BID@ RF: 0 potassium chloride 20 mEq tablet extended release 20 meq PO DAILY@ RF: 0 Discharge Orders: Discharge ED (Routine); Ordered 08/24/20 Ordered By: Noe Matos Referrals: Hao Caicedo MD [Physician] - () Discharge Diet: Advance as tolerated Discharge Activity: Resume usual activity Patient Instructions: Epistaxis (ED) Coding Level of Care Code ED Press And Blow Machine Tender for Chg Fwd Exam Detailed
[2020-08-24 17:05] LABS: Basophils # 0.1 10^3/uL (0.0-0.1); Basophils % 0.7 %; Eosinophils # 0.2 10^3/uL (0.0-0.8); Eosinophils % 2.7 %; Hematocrit 32.2 % (42.0-52.0); Hemoglobin 9.7 g/dL (11.7-16.6); Lymphocytes # 1.1 10^3/uL (0.8-4.8); Lymphocytes % 15.2 %; Mean Corpuscular HGB Conc 30.1 g/dL (30.0-36.0); Mean Corpuscular Volume 93.1 fL (80-94); Mean Platelet Volume 10.4 fL (7.4-10.4); Monocytes # 0.7 10^3/uL (0.2-0.9); Monocytes % 9.5 %; Neutrophils # 5.04 10^3/uL (1.8-7.7); Neutrophils % 71.6 %; Nucleated Red Blood Cells % 0 %; Platelet Count 227 10^3/cmm (130-400); Red Blood Count 3.46 10^6/uL (4.1-5.3); Red Cell Distribution Width 15.9 % (12.1-15.1)
[2020-08-24] MEDS: aspirin 325 mg Tablet PO (19:01)
--- NOTE | 2020-08-25 09:19 | DCPLANNER ---
state manager had message to reschedule patients appointment from August 26 to August [address] Caicedo at [facility]. state manager emailed patients information to S[facility] and [facility]. Clinic will call patient with appointment information.
--- NOTE | 2020-08-27 08:02 | DCPLANNER ---
Patient has a follow up appointment scheduled for Monday, August 28, 2020 at 9:[address] Caicedo at [facility] clinic. Clinic will call patient with appointment information.
--- NOTE | 2020-09-02 12:41 | DCPLANNER ---
Patient had a follow up appointment scheduled for 08.28.[address] Caicedo, ENT - patient did attend appointment.
== END 2020-08-24 19:01 | disposition home or self-care (01) ==
PROVIDERS: Family Medicine; Emergency Provider Emergency Medicine
DX: R04.0 Epistaxis (principal); Z79.01 Long term (current) use of anticoagulants; Z79.02 Long term (current) use of antithrombotics/antiplatelets; I10 Essential (primary) hypertension; E11.9 Type 2 diabetes mellitus without complications; Z95.1 Presence of aortocoronary bypass graft; Z87.891 Personal history of nicotine dependence
CPT/HCPCS: 30901; 85025; 96361; 96365; 96375; 99283; 99285

== ENCOUNTER → 2020-09-01 11:39 | Outpatient (BNVA) | payer MEDICARE, OTHER, SELFPAY | PROVIDERS: PCP Family Medicine; Visit Provider Family Medicine | DX: R53.81 Other malaise (principal); I25.10 Atherosclerotic heart disease of native coronary artery without angina pectoris; I48.91 Unspecified atrial fibrillation; N17.9 Acute kidney failure, unspecified; I95.9 Hypotension, unspecified; R04.0 Epistaxis | CPT/HCPCS: 36415; 80053; 85025 ==

== ENCOUNTER 2020-11-24 12:38 | Outpatient (CLI) | payer MEDICARE, SELFPAY ==
--- NOTE | 2020-11-24 13:30 | USCV_ITS ---
Ze Waite Age: 74 Gender: M : 1945 Exam Date: 11/24/2020 12:58 Ordering Phys: Betito Jolly M.D ([email or web address]) Technologist: Pamela Martinez [place] [facility] [place] CHF BP: 120 / 70 HR: 87 Rhythm: Sinus Technical Quality: Adequate MEASUREMENTS (Male / Female) Normal Values 2D ECHO LV Diastolic Diameter PLAX 5.1 cm 4.2 - 5.9 / 3.9 - 5.3 cm LV Systolic Diameter PLAX 3.1 cm LV Chamber Size 4.3 cm IVS Diastolic Thickness 0.9 cm 0.6 - 1.0 / 0.6 - 0.9 cm IVS Systolic Thickness 1.5 cm LVPW Diastolic Thickness 0.9 cm 0.6 - 1.0 / 0.6 - 0.9 cm LVPW Systolic Thickness 1.4 cm RV Chamber Size 4.3 cm LVOT Diameter 2.1 cm LV Ejection Fraction 2D Teich 68.8 % LV Ejection Fraction MOD 2C 6.7 % LV Ejection Fraction 2C AL 8.1 % LA Diameter 3.6 cm LA Width 3.9 cm LA Height 4.6 cm RA Width 4.6 cm RA Height 4.7 cm Aorta at Sinotubular Diameter 2.4 cm M-MODE LV Diastolic Diameter MM 4.6 cm 4.2 - 5.9 / 3.9 - 5.3 cm LV Systolic Diameter MM 3.2 cm LV Ejection Fraction MM Teich 57.5 % IVS Diastolic Thickness MM 1.3 cm 0.6 - 1.0 / 0.6 - 0.9 cm IVS Systolic Thickness MM 1.3 cm LVPW Diastolic Thickness MM 0.9 cm 0.6 - 1.0 / 0.6 - 0.9 cm LVPW Systolic Thickness MM 1.3 cm RV Diastolic Diameter MM 1.5 cm Aortic Annulus Diameter 3.5 cm LA Ao Ratio MM 1.1 MV E Point Septal Separation 1.4 cm DOPPLER AV Peak Velocity 106.0 cm/s LVOT Peak Velocity 57.0 cm/s AV Area Cont Eq vti 2.1 cm squared AV Area Cont Eq pk 1.8 cm squared MV Area PHT 3.7 cm squared Mitral E to A Ratio 5.1 MV E' Velocity 77.0 cm/s Mitral E to MV E' Ratio 24.9 Mitral E to LV E' Lateral Ratio 30.5 Mitral E to LV E' Septal Ratio 21.0 TR Peak Velocity 390.9 cm/s TR Peak Gradient 61.1 mmHg TR Mean Velocity 280.8 cm/s TR Mean Gradient 36.9 mmHg TR Velocity Time Integral 129.5 cm TV Peak E Velocity 72.0 cm/s Right Atrial Pressure 3.0 mmHg Pulmonary Artery Systolic Pressu 64.1 mmHg PV Peak Velocity 53.0 cm/s RV Acceleration Time 0.1 s RV Ejection Time 0.3 s RV AcT/ET 0.2 FINDINGS Left Ventricle Normal left ventricular size. LV systolic function is mildly reduced with EF of 40-45%. Moderate to severe hypokinesis of the inferior wall. Moderate hypokinesis of the anterolateral wall. Diastolic function is abnormal Right Ventricle The right ventricle is normal in size. Has moderately reduced funtion Right Atrium The right atrium is normal in size. Left Atrium The left atrium is normal in size. Mitral Valve Structurally normal mitral valve without significant stenosis or prolapse. There is moderate eccenteric mitral regurgitation. Aortic Valve Aortic valve is thickened and calcified without stenosis. There is no aortic regurgitation. Tricuspid Valve Structurally normal tricuspid valve without significant stenosis. Moderate tricuspid regurgitation. RVSP is >60mmHg consistent with severe pulmonary hypertension Pulmonic Valve Structurally normal pulmonic valve without significant stenosis. There is no pulmonic regurgitation. Pericardium Normal pericardium without effusion. Aorta Normal ascending aorta dimension. CONCLUSIONS LV systolic function is mildly reduced with EF of 40-45% Diastolic function is abnormal Moderate eccenteric mitral regurgitation Moderate tricuspid regurgitation Severe pulmonary hypertension Compared to prior echocardiogram from 08/03/20, LV systolic function has improved and is 40-45% now. Betito Jolly MD (Electronically Signed) Final Date: 30 November 2020 11:16 S
== END 2020-11-24 12:39 | disposition home or self-care (01) ==
PROVIDERS: PCP Family Medicine; Visit Provider Internal Medicine
DX: I50.20 Unspecified systolic (congestive) heart failure (principal); I48.91 Unspecified atrial fibrillation; I08.1 Rheumatic disorders of both mitral and tricuspid valves; I27.20 Pulmonary hypertension, unspecified
CPT/HCPCS: 93306

== ENCOUNTER → 2021-07-20 12:20 | Outpatient (BNVA) | payer MEDICARE, SELFPAY | PROVIDERS: PCP Family Medicine; Visit Provider Family Medicine | DX: I11.0 Hypertensive heart disease with heart failure (principal); I50.20 Unspecified systolic (congestive) heart failure; I25.10 Atherosclerotic heart disease of native coronary artery without angina pectoris; E11.9 Type 2 diabetes mellitus without complications; I48.91 Unspecified atrial fibrillation | CPT/HCPCS: 80053; 80061; 83036; 84443; 85025 ==

== ENCOUNTER 2021-08-25 14:14 | Emergency (ER) | payer MEDICARE, SELFPAY ==
--- NOTE | 2021-08-25 14:28 | XR_ITS ---
WS: [id number] XR chest 1V portable [id number] REASON FOR EXAM: cough FINDINGS: Status post coronary artery bypass surgery. Moderate tortuosity the thoracic aorta without aneurysmal dilatation. Heart is at the upper limits of normal in size. Calcified granulomatous disease in both hemithoraces. No acute pulmonary parenchymal or pleural abnormality. Moderate degenerative spondylosis in the mid and lower thoracic spine. XR/XR chest 1V portable [id number] IMPRESSION: No acute chest abnormality.
--- NOTE | 2021-08-25 14:29 | ECG_ITS ---
[facility] Test Date: 2021-08-25 Pat Name: Ze Waite Department: Room: Gender: Male Nuclear Medicine Officer: : 1945 Requested By: Omari Mackenzie Order Number: [id number] Lyn MD: Kiarra Michel M.D. Measurements Intervals [place] Rate: 68 P: 91 ID: [id number] QRS: 270 QRSD: 150 T: 61 QT: 461 QTc: 494 Interpretive Statements SINUS RHYTHM RIGHT AXIS DEVIATION [QRS AXIS > 100] RIGHT BUNDLE BRANCH BLOCK AND POSSIBLE RIGHT VENTRICULAR HYPERTROPHY [RBBB, 1.5 mV R IN V1, RAD] Compared to ECG 08/13/2020 15:42:54 No significant changes Electronically Signed On 08-25-2021 18:23:05 CDT by Kiarra Michel M.D. [id number]
[2021-08-25 16:20] VITALS: BP 138/75; PULSE 65; RESP 15; TEMP 36.8; O2SAT 98; BMI 21.8
[2021-08-25 16:45] LABS: Basophils # 0.1 10^3/uL (0.0-0.1); Basophils % 1.3 %; Eosinophils # 0.6 10^3/uL (0.0-0.8); Eosinophils % 7.5 %; Hematocrit 42.4 % (42.0-52.0); Hemoglobin 13.9 g/dL (11.7-16.6); Lymphocytes # 0.7 10^3/uL (0.8-4.8); Lymphocytes % 8.9 %; Mean Corpuscular HGB Conc 32.8 g/dL (30.0-36.0); Mean Corpuscular Hemoglobin 29.2 pg (28.0-34.0); Mean Corpuscular Volume 89.1 fl (80-94); Mean Platelet Volume 9.6 fL (7.4-10.4); Monocytes # 1.1 10^3/uL (0.2-0.9); Monocytes % 14.5 %; Neutrophils # 5.23 10^3/uL (1.8-7.7); Neutrophils % 67.7 %; Nucleated Red Blood Cells % 0 %; Platelet Count 194 10^3/cmm (130-400); Red Blood Count 4.76 10^6/uL (4.1-5.3); Red Cell Distribution Width 12.3 % (12.1-15.1); White Blood Count 7.7 10^3/uL (4.0-10.0)
[2021-08-25 17:27] LABS: Alanine Aminotransferase 37 U/L (0-41); Albumin Level 3.8 g/dL (3.5-5.2); Alkaline Phosphatase 101 IU/L (40-130); Aspartate Amino Transferase 23 U/L (0-40); Blood Urea Nitrogen 27 mg/dL (8-23); Calcium 9.7 mg/dL (8.5-10.5); Carbon Dioxide 23 mmol/L (22-29); Chloride 96 mmol/L (98-107); Globulin 3.2 g/dL (1.3-4.6); Glucose 287 mg/dL (65-115); NT Pro B Type Natriuretic Pept 2780 pg/mL (0-450); Osmolality Calculated 288 mOsm/kg (285-295); Sodium 131 mmol/L (136-145); Total Bilirubin 0.5 mg/dL (0.15-1.2)
[2021-08-25 17:29] LABS: Anion Gap 16.1 (5-19); Potassium 4.1 mmol/L (3.5-5.1)
--- NOTE | 2021-08-25 19:37 | ED_ITS ---
HPI - General Adult General: Chief complaint: General Medical Stated complaint: cough/abnormal labs Time Seen by Provider: 08/25/21 19:37 History of Present Illness: Mr. Waite is a 75-year-old gentleman with history of diabetes, heart failure, CAD s/p PCI, A. fib who presents to the emergency department due to elevated blood sugar. He reports largely being at his baseline health with exception of mild cough over the past few days. He has been on his diabetes medications for prolonged period of time and normally has well-controlled blood sugar. Over the past few days, especially today he has noticed elevated blood sugar despite no changes in diet. He has noticed increased urination and thirst. Intensity of symptoms is moderate. Denies similar episodes in the past. Course has been worsening. Denies other specific known triggers. No other specific changes in health, exacerbating, or alleviating factors identified. Onset (ago): day(s) Exacerbating factors: none Associated symptoms: Reports cough Review of Systems General: Reports: 10 or more systems reviewed and unremarkable except in HPI and below PFSH ED PFSH: Medical History Abnormal colonoscopy Polypectomy BPH (benign prostatic hyperplasia) Diverticula of colon Hypertension Pulmonary edema Type 2 diabetes mellitus Surgical History S/P CABG (coronary artery bypass graft) 5 vessel bypass Family History Denies family history of Cancer Social History Smoking and tobacco status: never smoked Alcohol intake: never Household members: family Housing: House Physical Exam Const: COMMON NORMALS: alert GENERAL APPEARANCE: cooperative and well developed HENMT: COMMON NORMALS: normocephalic and atraumatic HEAD & SCALP: normocephalic and atraumatic Eye: COMMON NORMALS: conjunctivae normal CONJUNCTIVA: Yes conjunctivae normal SCLERA: sclerae normal Neck/C-Spine: COMMON NORMALS: supple GENERAL: Yes trachea midline Resp: COMMON NORMALS: normal respiratory effort EFFORT & INSPECTION: Yes able to speak in complete sentences AUSCULTATION: rhonchi lower bilaterally Cardio: COMMON NORMALS: regular rate and regular rhythm RATE: regular rate RHYTHM: regular rhythm GI: COMMON NORMALS: Soft to palpation PALPATION: Yes Soft to palpation and No Tenderness to palpation present (GI) PERCUSSION: normal to percussion Extremity: GENERAL: Yes normal exam except as noted and No edema Neuro: COMMON NORMALS: moves all extremities SENSORIUM/ORIENTATION: Yes alert and No Orientation impaired Psych: COMMON NORMALS: mental status grossly normal and Normal thought process present THOUGHT PROCESS: Normal thought process present Course ED course: - Patient was seen and evaluated by me at bedside - Patient placed on cardiac monitors, IV access obtained - Initial evaluation notable for exam as above. - Labs and xrays personally interpreted by me. EKGs from 1617 and 2024 personally interpreted by me. Sinus rhythm. Right bundle branch block. No STEMI. - Fluids given - Labs notable for no significant hematologic abnormality. Metabolic panel consistent with intravascular dehydration, and no evidence of DKA. Urinalysis without evidence of infection. - Imaging notable for no acute abnormality identified on chest x-ray. - Upon serial reexamination after treatment the patient was improved - Based on patient history, evaluation, and testing as interpreted the most likely cause of the patient's condition is pneumonia likely contributing to hyperglycemia without evidence of DKA - The results of ED evaluation were discussed with the patient including prescriptions and/or symptomatic cares (if applicable) including appropriate and responsible use, followup plan, and return precautions. The patient verbalized understanding and felt safe for discharge. - Patient discharged in satisfactory condition. Note: Click bubbles or prepopulated mcgill in note writing are used for assistance with data collection and billing and are inherently more limited than narrative and other text portions of this note. Please use narrative for additional clinical history and defer to narrative/free test for any case of contradictory information. If information appears in only free text or click bubble it should be considered present or absent as reported. Please contact note headline writer for clarifications of clinical information or contradictory information. MDM is a brief summary, contradictory or erroneous seeming information should be clarified and full note should be reviewed. Vital Signs: Vital signs: Vital Signs Temperature 98.2 F 08/25/21 16:20 Pulse Rate 62 08/25/21 22:53 Respiratory Rate 15 08/25/21 22:53 Blood Pressure 122/73 08/25/21 22:53 Pulse Oximetry 95 08/25/21 22:53 MDM - General Adult Medical Decision Making 75-year-old gentleman with history of diabetes presenting with uncontrolled blood glucose of unclear etiology. He does have associated cough. No evidence of DKA on ED evaluation. Will be treated for pneumonia in outpatient setting. Satisfactory for close outpatient follow-up with PCP. Medical Records I reviewed the patient's medical records. Lab Data I reviewed the patient's lab results. : 08/25/21 16:16 08/25/21 16:16 Radiology Impressions Chest X-Ray 08/25/21 14:28 IMPRESSION: No acute chest abnormality. Laboratory Results WBC 7.7 10^3/uL (4.0-10.0) 08/25/21 16:16 RBC 4.76 10^6/uL (4.1-5.3) 08/25/21 16:16 Hgb 13.9 g/dL (11.7-16.6) 08/25/21 16:16 Hct 42.4 % (42.0-52.0) 08/25/21 16:16 MCV 89.1 fl (80-94) 08/25/21 16:16 MCH 29.2 pg (28.0-34.0) 08/25/21 16:16 MCHC 32.8 g/dL (30.0-36.0) 08/25/21 16:16 RDW 12.3 % (12.1-15.1) 08/25/21 16:16 Plt Count 194 10^3/cmm (130-400) 08/25/21 16:16 MPV 9.6 fL (7.4-10.4) 08/25/21 16:16 Neut % (Auto) 67.7 % 08/25/21 16:16 Lymph % (Auto) 8.9 % 08/25/21 16:16 [place] % (Auto) 14.5 % 08/25/21 16:16 Eos % (Auto) 7.5 % 08/25/21 16:16 Baso % (Auto) 1.3 % 08/25/21 16:16 Neut # (Auto) 5.23 10^3/uL (1.8-7.7) 08/25/21 16:16 Lymph # (Auto) 0.7 10^3/uL (0.8-4.8) L 08/25/21 16:16 [place] # (Auto) 1.1 10^3/uL (0.2-0.9) H 08/25/21 16:16 Eos # (Auto) 0.6 10^3/uL (0.0-0.8) 08/25/21 16:16 Baso # (Auto) 0.1 10^3/uL (0.0-0.1) 08/25/21 16:16 Nucleated RBC % (auto) 0 % 08/25/21 16:16 Nucleated RBCs # 0.0 /100WBC 08/25/21 16:16 Sodium 131 mmol/L (136-145) L 08/25/21 16:16 Potassium 4.1 mmol/L (3.5-5.1) 08/25/21 16:16 Chloride 96 mmol/L (98-107) L 08/25/21 16:16 Carbon Dioxide 23 mmol/L (22-29) 08/25/21 16:16 Anion Gap 16.1 (5-19) 08/25/21 16:16 BUN 27 mg/dL (8-23) H 08/25/21 16:16 Creatinine 1.1 mg/dL (0.7-1.2) 08/25/21 16:16 GFR Calculation Not Reportable 08/25/21 16:16 Glucose 287 mg/dL (65-115) H 08/25/21 16:16 POC Glucose 222 mg/dL (70-110) H 08/25/21 20:23 Calculated Osmolality 288 mOsm/kg (285-295) 08/25/21 16:16 Calcium 9.7 mg/dL (8.5-10.5) 08/25/21 16:16 Total Bilirubin 0.5 mg/dL (0.15-1.2) 08/25/21 16:16 AST 23 U/L (0-40) 08/25/21 16:16 ALT 37 U/L (0-41) 08/25/21 16:16 Alkaline Phosphatase 101 IU/L (40-130) 08/25/21 16:16 Troponin T Baseline 21 ng/L (0-15) H 08/25/21 20:56 NT-Pro-B Natriuret Pep 2780 pg/mL (0-450) H 08/25/21 16:16 Total Protein 7.0 g/dL (6.6-8.7) 08/25/21 16:16 Albumin 3.8 g/dL (3.5-5.2) 08/25/21 16:16 Globulin 3.2 g/dL (1.3-4.6) 08/25/21 16:16 Urine Color Yellow (Yellow) 08/25/21 22:11 Urine Appearance Clear (CLEAR) 08/25/21 22:11 Urine pH 5 (5-7) 08/25/21 22:11 Ur Specific [place] 1.015 (1.005-1.030) 08/25/21 22:11 Urine Protein Neg (Negative) 08/25/21 22:11 Urine Glucose (UA) 4+ (Normal) H 08/25/21 22:11 Urine Ketones Negative (Negative) 08/25/21 22:11 Urine Blood Neg (Negative) 08/25/21 22:11 Urine Nitrate Negative (Negative) 08/25/21 22:11 Urine Bilirubin Neg (Negative) 08/25/21 22:11 Urine Urobilinogen Norm mg/dL (Negative) 08/25/21 22:11 Ur Leukocyte Esterase Negative (Negative) 08/25/21 22:11 Discharge Plan Discharge Patient Disposition: Home Clinical Impression: Pneumonia, Hyperglycemia Condition: Stable Prescriptions: New doxycycline hyclate 100 mg tablet 100 mg PO Q12H 10 Days Qty: 20 0RF No Action aspirin 81 mg tablet,delayed release (DR/EC) 81 mg PO DAILY 90 Days Qty: 90 0RF lutein 6 mg capsule 6 mg PO DAILY@09 90 Days Qty: 90 0RF nitroglycerin 0.4 mg tablet, sublingual 0.4 mg sublingual Q5M PRN (Reason: Chest Pain) Qty: 60 1RF coenzyme Q10 10 mg capsule 10 mg PO DAILY 30 Days Qty: 30 0RF lkwpy-gq-4-veq-din-zpxwowc-ast [krill oil] 1,519-551-81-80 mg capsule 1 cap PO .everyother 90 Days Qty: 90 0RF biotin 10,000 mcg capsule PO BID 0RF Victoza 3-Ruben 0.6 mg/0.1 mL (18 mg/3 mL) pen injector 1.8 mg SUBCUT DAILY@12 90 Days Qty: 27 1RF Rx Instructions: Provide 9 pens each 90 days Pacerone 200 mg tablet 200 mg PO DAILY 90 Days Qty: 180 1RF atorvastatin 40 mg tablet 40 mg PO BEDTIME@2100 90 Days Qty: 90 1RF clopidogrel 75 mg tablet 75 mg PO DAILY@09 90 Days Qty: 90 1RF cranberry extract 250 mg Tablet 250 mg PO DAILY@09 0RF Discharge Orders: Discharge ED (Routine); Ordered 08/25/21 Ordered By: Omari Mackenzie Referrals: Harpal Samayoa MD [Primary Care Provider] - Discharge Diet: Usual diet and Diabetic Discharge Activity: Resume usual activity Patient Instructions: Community Acquired Pneumonia (ED), Diabetic Hyperglycemia (ED) Activity Restrictions/Additional Instructions: Thank you for visiting the emergency department. You were seen and evaluated for high blood sugar. The exact cause of your symptoms is unclear however you do not show evidence of diabetic ketoacidosis and therefore do not require hosp italization at this time. Given your cough and possible contribution of infection to your symptoms he will be treated with antibiotics. Please follow-up with your primary care provider within the next 2 days. Please return to the emergency department for worsening symptoms or anything else that you are concerned about and feel needs emergency department evaluation. Coding Level of Care Code ED Shift Coordinator for Terese Somers
--- NOTE | 2021-08-25 20:05 | ECG_ITS ---
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 Measurements Intervals [place] Rate: 63 P: 87 ND: 178 QRS: 267 QRSD: 151 T: 58 QT: 481 QTc: 496 Interpretive Statements SINUS RHYTHM RIGHT AXIS DEVIATION [QRS AXIS > 100] RIGHT BUNDLE BRANCH BLOCK AND POSSIBLE RIGHT VENTRICULAR HYPERTROPHY [RBBB, 1.5 mV R IN V1, RAD] Compared to ECG 08/25/2021 16:18:02 No significant changes Electronically Signed On 08-26-2021 7:11:14 CDT by Kiarra Michel M.D. [id number]
[2021-08-25 20:12] VITALS: BP 137/75; PULSE 70; RESP 16; O2SAT 98
[2021-08-25 20:40] LABS: Glucose Point of Care 222 mg/dL (70-110)
[2021-08-25 21:22] LABS: Troponin(5th) Baseline 21 ng/L (0-15)
[2021-08-25 21:56] VITALS: BP 117/62; PULSE 60; RESP 17; O2SAT 96
[2021-08-25] MEDS: sodium chloride 0.9% 1,000 ML 999 ML IV (22:12)
[2021-08-25 22:15] LABS: Add Urine Microscopic? NO; Charge for UA Resulting for Rev
[2021-08-25 22:18] LABS: Protein Urine Neg (Negative); Specific Gravity, Urine 1.015 (1.005-1.030); Urine Appearance Clear (CLEAR); Urine Color Yellow (Yellow); pH Urine 5 (5-7)
[2021-08-25 22:19] LABS: Bilirubin Urine Neg (Negative); Blood Urine Neg (Negative); Glucose Urine UA 4+ (Normal); Ketones Urine Negative (Negative); Leukocyte Esterase Urine Negative (Negative); Nitrate Urine Negative (Negative); Urobilinogen Urine Norm (Negative)
[2021-08-25 22:53] VITALS: BP 122/73; PULSE 62; RESP 15; O2SAT 95
[2021-08-25] MEDS: doxycycline 100 mg Tablet PO (23:09)
== END 2021-08-25 23:22 | disposition home or self-care (01) ==
PROVIDERS: Emergency Provider Emergency Medicine; PCP Family Medicine
DX: J18.9 Pneumonia, unspecified organism (principal); E11.65 Type 2 diabetes mellitus with hyperglycemia; I10 Essential (primary) hypertension; N40.0 Benign prostatic hyperplasia without lower urinary tract symptoms; Z79.899 Other long term (current) drug therapy
CPT/HCPCS: 36415; 36416; 71045; 80053; 81003; 82962; 83880; 84484; 85025; 93005; 96360; 99284; J7030

== ENCOUNTER → 2021-10-01 11:24 | Outpatient (BNVA) | payer MEDICARE, SELFPAY | PROVIDERS: PCP Family Medicine; Visit Provider Internal Medicine | DX: I11.0 Hypertensive heart disease with heart failure (principal); I50.20 Unspecified systolic (congestive) heart failure; I25.10 Atherosclerotic heart disease of native coronary artery without angina pectoris; E11.9 Type 2 diabetes mellitus without complications; Z79.4 Long term (current) use of insulin | CPT/HCPCS: 99214 ==

== ENCOUNTER → 2022-03-16 10:19 | Outpatient (BNVA) | payer MEDICARE, SELFPAY | PROVIDERS: PCP Family Medicine; Visit Provider Surgery | DX: K40.90 Unilateral inguinal hernia, without obstruction or gangrene, not specified as recurrent (principal) | CPT/HCPCS: 99203 ==

== ENCOUNTER → 2022-04-22 09:46 | Outpatient (BNVA) | payer MEDICARE, SELFPAY | PROVIDERS: PCP Family Medicine; Visit Provider Internal Medicine | DX: I11.0 Hypertensive heart disease with heart failure (principal); I50.20 Unspecified systolic (congestive) heart failure; I25.10 Atherosclerotic heart disease of native coronary artery without angina pectoris; I48.91 Unspecified atrial fibrillation; E11.9 Type 2 diabetes mellitus without complications | CPT/HCPCS: 99214 ==

== ENCOUNTER 2022-05-02 07:28 | Day surgery (SDC) | payer MEDICARE, SELFPAY ==
--- NOTE | 2022-04-28 10:52 | ECG_ITS ---
[facility] Test Date: 2022-04-28 Pat Name: Ze Waite Department: Room: Gender: Male Domestic Technician: : 1945 Requested By: Jian Ferreira Order Number: [id number] Eboni MD: Betito Jolly M.D. Measurements Intervals [place] Rate: 62 P: 71 [place]: 194 QRS: -75 QRSD: 152 T: 45 QT: 481 QTc: 490 Interpretive Statements SINUS RHYTHM WITH OCCASIONAL SUPRAVENTRICULAR PREMATURE COMPLEXES RIGHT BUNDLE BRANCH BLOCK [120+ ms QRS DURATION, UPRIGHT V1, 40+ ms S IN I/aVL/V4/V5/V6] LEFT ANTERIOR FASCICULAR BLOCK [QRS AXIS <= -45, QR IN I, RS IN II] INFERIOR MYOCARDIAL INFARCTION , PROBABLY OLD [40+ ms Q WAVE AND/OR ST/T ABNORMALITY IN II/aVF] Compared to ECG 08/25/2021 20:25:24 Left anterior fascicular block now present Myocardial infarct finding now present Right-axis deviation no longer present Electronically Signed On 04-28-2022 13:47:16 [employer] by Betito Jolly M.D. [id number]
[2022-04-28 11:01] VITALS: BMI 22.4
[2022-04-28 11:51] LABS: Basophils # 0.1 10^3/uL (0.0-0.1); Basophils % 1.2 %; Eosinophils # 0.2 10^3/uL (0.0-0.8); Hematocrit 42.6 % (42.0-52.0); Hemoglobin 14.2 g/dL (11.7-16.6); Lymphocytes # 0.8 10^3/uL (0.8-4.8); Lymphocytes % 14.1 %; Mean Corpuscular HGB Conc 33.3 g/dL (30.0-36.0); Mean Corpuscular Hemoglobin 30.1 pg (28.0-34.0); Mean Corpuscular Volume 90.4 fl (80-94); Mean Platelet Volume 9.6 fL (7.4-10.4); Monocytes # 0.5 10^3/uL (0.2-0.9); Monocytes % 8.2 %; Neutrophils # 4.21 10^3/uL (1.8-7.7); Neutrophils % 73.2 %; Nucleated Red Blood Cells % 0 %; Platelet Count 155 10^3/cmm (130-400); Red Blood Count 4.71 10^6/uL (4.1-5.3); Red Cell Distribution Width 12.8 % (12.1-15.1); White Blood Count 5.8 10^3/uL (4.0-10.0)
[2022-04-28 12:06] LABS: Anion Gap 14.3 (5-19); Blood Urea Nitrogen 23 mg/dL (8-23); Calcium 9.6 mg/dL (8.5-10.5); Carbon Dioxide 26 mmol/L (22-29); Chloride 97 mmol/L (98-107); Glucose 246 mg/dL (65-115); Osmolality Calculated 288 mOsm/kg (285-295); Potassium 4.3 mmol/L (3.5-5.1); Sodium 133 mmol/L (136-145)
--- NOTE | 2022-04-28 13:29 | P.ANESASSM_ITS ---
Pre-Anesthetic Assessment Height/Weight: Height 1.75 m Weight 68.946 kg Preop Diagnosis: NSTEMI/ Ventricular tachycardia Operation Date: 05/02/22 11:10 Proposed Procedures p 60188 lap right inguinal hernia repair K40.90(Right) - Jason Rosas MD Familial anesthetic complications: none Was Beta Trinity taken within 24 hours: N/A Was Clonidine taken within 24 hours: N/A Social No alcohol and No tobacco Exam alert, oriented x 3, clear to auscultation bilaterally and regular rate & rhythm Airway Submandibular: within normal limits Cervical ROM: within normal limits Mallampati: Class II Dentition: false CV/HEM Atrial Fibrillation, Arrythmia, Coronary Artery Disease, Congestive Heart Failure (EF 40-45% 12/09), Hypertension and Myocardial Infarction Significant CADz hx, stenting and PTCA in 08/09, CABG previously doing well now Chronic Renal Insufficiency Metabolic Diabetes Mellitus Anesthetic Plan ASA status: 3 Anesthesia: General Medications/Allergies Home Medications Medication Instructions Recorded Confirmed Last Taken Type cranberry extract 250 mg tablet 250 mg PO DAILY@09 08/02/20 04/28/22 08/24/20 History aspirin 81 mg tablet,delayed 81 mg PO DAILY 90 days #90 tabs 09/15/20 04/28/22 Unknown Rx release lutein 6 mg capsule 6 mg PO DAILY@09 90 days #90 caps 09/15/20 04/28/22 Unknown Rx nitroglycerin 0.4 mg sublingual 0.4 mg sublingual Q5M PRN Chest 09/15/20 04/28/22 Unknown Rx tablet Pain #60 tabs coenzyme Q10 10 mg capsule 10 mg PO DAILY 30 days #30 caps 12/29/20 04/28/22 Unknown Rx krill 1,000 mg-omega-3 170 mg-dha 1 cap PO .everyother 90 days #90 12/29/20 04/28/22 Unknown Rx 50 mg-epa 80 ww-nrfzwu-fwbew caps capsule (krill oil) biotin 10,000 mcg capsule 10,000 mcg PO 1XD 03/26/21 04/28/22 Unknown History amiodarone 200 mg tablet (Pacerone) 200 mg PO DAILY 90 days #180 tabs 08/10/21 04/28/22 Unknown Rx liraglutide 0.6 mg/0.1 mL (18 mg/3 1.2 mg (0.2 mL) SUBCUT DAILY@12 90 08/31/21 04/28/22 Unknown Rx mL) subcutaneous pen injector days #27 mL (Victoza 3-Ruben) atorvastatin 40 mg tablet 40 mg PO BEDTIME@2100 90 days #90 02/10/22 04/28/22 Unknown Rx tabs clopidogrel 75 mg tablet See Rx Instructions .Route 04/13/22 04/28/22 Unknown Rx .COMPLEX #90 tabs diphenhydramine HCl 25 mg capsule 25 mg PO TID PRN Allergic Reaction 04/22/22 04/28/22 Unknown History (Benadryl) Allergies Allergy/AdvReac Type Severity Reaction Status Date / Time erythromycin base Allergy rash and Verified 04/22/22 10:04 fever Penicillins Allergy ALGY-Anaphy Verified 04/22/22 10:04 laxis [facility] Anesthesia Medical History Abnormal colonoscopy Polypectomy BPH (benign prostatic hyperplasia) Diverticula of colon Hypertension Pulmonary edema Type 2 diabetes mellitus Surgical History S/P CABG (coronary artery bypass graft) 5 vessel bypass Family History Denies family history of Cancer Social History Smoking and tobacco status: never smoked Alcohol intake: never Household members: family Housing: House Data Anesthesia 04/28/22 11:35 04/28/22 11:35 Short CBC 04/28/22 Range/Units 11:35 WBC 5.8 (4.0-10.0) 10^3/uL Hgb 14.2 (11.7-16.6) g/dL Hct 42.6 (42.0-52.0) % MCV 90.4 (80-94) fl Plt Count 155 (130-400) 10^3/cmm Neut % (Auto) 73.2 % Neut # (Auto) 4.21 (1.8-7.7) 10^3/uL BMP 04/28/22 11:35 Sodium 133 L Potassium 4.3 Chloride 97 L Carbon Dioxide 26 BUN 23 Creatinine 1.2 Glucose 246 H Calcium 9.6 Cardiac Studies: Echocardiogram Limited Views 08/05/20 Echocardiogram Ultrasound 11/24/20
[2022-05-02] VITALS (9 sets, daily range): BP systolic 121–141; BP diastolic 57–74; PULSE 56–66; RESP 14–18; TEMP 36.1–36.7; O2SAT 95–99
[2022-05-02 08:34] LABS: Glucose Point of Care 141 mg/dL (70-110)
[2022-05-02] MEDS: sodium chloride 0.9% 1,000 ML 30 ML IV (08:38)
--- NOTE | 2022-05-02 08:41 | W.PM.OPSFHP ---
Same Day Surgery H&P Indication for Procedure/HPI DATE OF PROCEDURE: May 02, 2022 CHIEF COMPLAINT/INDICATIONFOR SURGICAL PROCEDURE: Hernia on my right groin PREOP DIAGNOSIS: Right inguinal Hernia PLANNED PROCEDURE: Operation Date: 05/02/22 09:15 Proposed Procedures p 88846 lap right inguinal hernia repair K40.90(Right) - Jason Rosas MD 03/16/2022 This is a pleasant 76 years old gentleman comes today with his partner.? Presenting with reducible right groin hernia that has been bothering him for the past couple of months or so.? Patient has been on chronic Plavix therapy for coronary artery stent placement.? Is referred to my practice for further evaluation potential intervention. 05/02/2022 Patient comes today for elective laparoscopic right inguinal hernia repair. It was seen and evaluated by cardiology service and was deemed to be acceptable cardiac risk to undergo the procedure. ROS All systems have been reviewed negative except as for the above or per problem list. Medications/Allergies* Home Medications Medication Instructions Recorded Confirmed Type cranberry extract 250 mg tablet 250 mg PO DAILY@08/02/20 05/02/22 History biotin 10,000 mcg capsule 10,000 mcg PO 1XD 03/26/21 05/02/22 History diphenhydramine HCl 25 mg capsule 25 mg PO TID PRN Allergic Reaction 04/22/22 05/02/22 History (Benadryl) Allergies/Adverse Reactions Allergy/AdvReac Type Severity Reaction Status Date / Time erythromycin base Allergy rash and Verified 05/02/22 08:42 fever Penicillins Allergy ALGY-Anaphy Verified 05/02/22 08:42 laxis Current Medications: Generic Name Dose Route Start Last Admin Trade Name Freq PRN Reason Stop Dose Admin Sodium Chloride 1,000 mls @ 30 mls/hr 05/02/22 07:45 05/02/22 08:38 Sodium Chloride 0.9% IV 05/03/22 07:44 30 mls/hr .Q24H MONICA Administration Pertinent History/Comorbid Conditions* Medical History (Updated 02/18/22 @ 11:35 by CONTRERAS Alejandra) Abnormal colonoscopy Polypectomy BPH (benign prostatic hyperplasia) Diverticula of colon Hypertension Pulmonary edema Type 2 diabetes mellitus Surgical History (Updated 08/02/20 @ 16:01 by Shi Burgess MD) S/P CABG (coronary artery bypass graft) 5 vessel bypass Family History (Updated 08/02/20 @ 16:02 by Shi Burgess MD) Denies family history of Cancer Social History Smoking and tobacco status: never smoked Alcohol intake: never Household members: family Housing: House Pertinent Exam Findings alert, oriented x 3, regular rate & rhythm, operative site marked (Right groin hernia) and procedure specific exam findings (Reducible right groin hernia) Recommendations Surgery/Procedure today (Laparoscopic right inguinal hernia repair with mesh placement possible open) Coding Level of Care Code Acute Human Resources Office Assistant for Terese Somers
--- NOTE | 2022-05-02 08:51 | P.ANESUD_ITS ---
Pre-Anesthetic Update Pre-Anesthetic Assessment: Date of Surgery/Procedure: 05/02/22 Preop Lucina gnosis: Right inguinal Hernia Proposed Procedure: Operation Date: 05/02/22 09:15 Proposed Procedures p 53086 lap right inguinal hernia repair K40.90(Right) - Jason Rosas MD Any changes to Pre-Anesthetic Assessment?: No Last Intake: Intake Last Liquid Date 05/01/22 Last Liquid Time 21:30 Last Solid Date 05/01/22 Last Solid Time 19:00 Vitals: Temperature 97.7 F 05/02/22 08:01 Temperature Source Temporal Artery S can 05/02/22 08:01 Pulse Rate 58 L 05/02/22 08:01 Pulse Rhythm 05/02/22 08:02 Pulse Strength 3+ Normal 05/02/22 08:02 Respiratory Rate 16 05/02/22 08:01 Blood Pressure 121/72 05/02/22 08:01 Blood Pressure Sanaz n 88 05/02/22 08:01 Pulse Oximetry 99 05/02/22 08:01 Oxygen Delivery Me thod 05/02/22 08:02 Exam: Pre-Anes Outpt Exam: alert, oriented x 3, clear to auscultation bilaterally and regular rate & rhythm Cardiac Studies: Echocardiogram Limited Views 08/05/20 Echocardiogram Ultrasound 11/24/20
[2022-05-02] MEDS: heparin 5,000 unit/mL INJ 1 mL 2000 UNIT SUBCUT (09:02)
[2022-05-02] MEDS: ciprofloxacin 400 MG/200 ML PREMIX 200 MG IV (09:08)
--- NOTE | 2022-05-02 10:39 | P.OP_ITS ---
Operative Report Date of procedure: May 02, 2022 Pre-op diagnosis: Preop Diagnosis Right inguinal Hernia Procedure done: Laparoscopic right inguinal hernia repair with mesh placement Laparoscopic excision of lipoma of the cord Implants: 3D mesh Specimens removed/disposition: Lipoma of the cord Surgeon: Jason Rosas MD Supervisor Functional Testing: Surgical raul Delarosa Circulating nurse Linda Estimated blood loss (mL): 10 IV fluids (mL): 700 Urine output (mL): 350 Procedure: Patient was identified in the holding area ,patient was transferred to the operating room where he was placed in supine position, with both arms were tucked, antibiotic was given with induction, endotracheal tube was placed per anesthesia, Cantu catheter was inserted by the circulating nurse and revealed clear urine, prep and drape of the abdomen was done under the usual sterile technique as well as the scrotal area. Time-out was done verifying the patient's name/date of /planned procedure destination after the procedure, all were in agreement. SCDs confirmed to be functioning, preoperative antibiotics administered per protocol, and beta archie protocol was confirmed. A vertical skin incision of 1.2 cm was made with 11 blade knife through the supra umbilicus , incision was carried down to the subcutaneous tissue and deepened to identify the anterior fascia, two stay sutures were applied to the f ascia, and safe entrance to the abdominal cavity was achieved, a Hsu trocar technique safe entry to the abdominal cavity was achieved verified by using 10 mm zero degree laparoscopy, switched to a 30 degrees scope,low flow followed by a higher flow of CO2 gas up to 15 mmHg. There was no evidence of injury to intra-abdominal structures from the port entry, attention was deviated to both groins, there was a large direct hernia defect with herniation of peritoneum and preperitoneal fat was noted on the right side, two 5 mm ports were placed on the right and left lateral aspect of the abdomen slightly above the level of the umbilicus, under direct visualization, anesthesia 2% lidocaine local was injected at all trocar sites prior to incisions. The peritoneum above the level of the iliopubic tract was incised to the right of the midline and dissection was performed to create a preperitoneal space medial to lateral aspect up to anterior superior iliac spine on the right side. Dissection was continued onto the medial aspect and the right spermatic was identified, there was evidence of direct inguinal hernia .the sac was dissected. As it applied medial to the right inferior epigastric vessels/ dissection was performed to clear the space lateral to the spermatic cord and dorsomedial to it, yet the patient was noticed to have excessive scarring of the right groin which encased the spermatic cord, the hernia sac was reduced and retracted far back, so there was an evidence of lipoma of the cord that was excised and sent for permanent pathology. Then a large right 3-D mesh was rolled and placed into the abdominal cavity through the Hsu port, after the mesh was introduced it was positioned to lie in the myopectineal orifice and the mesh was unrolled and this covered the entire my myope pectineal orifice. Intra-abdominal pressure was dropped to 12 mmHg to help placement of the mesh good position On the lateral aspect of the mesh extended up to the anterior superior iliac spine on the medial aspect the mesh crossed the midline onto the left side, then using absorbable tacks, placed above the iliopubic tract onto the rectus abdominis muscle on the medial aspect and also to the lateral abdominal wall superomedial to the sacroiliac spine, then the mesh was also anchored to the pubis and the Erik's ligament inferiorly. The peritoneal leaflets were then brought together to cover the mesh and isolated from the other viscera, extra tacks were used to secure the peritoneum in good position. Final look demonstrated good hemostasis and the mesh in good position There was an incidental finding of a very small peritoneal indentation likely represent a small hernia without complication on the left groin, the patient was asymptomatic, patient was counseled about any incidental findings preoperativley if he would like to proceed and fix it and he said he is not complaining of anything on the left side. Prefers not to. A total of 20 mL Exparel 40 ml Normal saline 20 ml bupivacaine 0.25% were injected at the remaining of the tacks site and trocar sites as well Final look demonstrated good hemostasis.Then the fascia on the supra umbilical fascial defect was closed using #1 PDS sutures under direct visualization using fascial closure device Ty Bishop.All ports were removed,then the abdomen was desufflated. All skin incisions were closed with 4-0 Monocryl subcuticular suture and Dermabond was applied. The patient tolerated the procedure well, Cantu catheter was taken out and a scrotal support was provided,patient got extubated and was transferred to the recovery area in stable condition. All counts of instruments, needles and sponges were completed I was present for the whole entire procedure
[2022-05-02] MEDS: HYDROcodone-acetaminophen 5-325 mg Tablet 1 TAB PO (12:35)
--- NOTE | 2022-05-02 14:25 | ANE.PACU2 ---
Inpatient post-anesthesia follow up: Airway intact: Yes Vital signs: Temperature 98.1 F Pulse Rate 61 Respiratory Rate 14 Blood Pressure 124/60 Pulse Oximetry 97 Oxygen Delivery Me thod Room Air Oxygen Flow Rate 6 Fraction of Inspir ed Oxygen Hydration adequate: Yes Nausea and vomiting: No Pain level: 1 Mental status: Baseline
== END 2022-05-02 13:45 | disposition home or self-care (01) ==
PROVIDERS: Anesthesiology; PCP Family Medicine; Visit Provider Surgery
PROC: (CPT 49650; principal; 2022-05-02 09:05)
DX: K40.90 Unilateral inguinal hernia, without obstruction or gangrene, not specified as recurrent (principal); D17.6 Benign lipomatous neoplasm of spermatic cord; I48.91 Unspecified atrial fibrillation; I25.10 Atherosclerotic heart disease of native coronary artery without angina pectoris; I11.0 Hypertensive heart disease with heart failure; I50.9 Heart failure, unspecified; I25.2 Old myocardial infarction; Z95.5 Presence of coronary angioplasty implant and graft; Z95.1 Presence of aortocoronary bypass graft; E11.9 Type 2 diabetes mellitus without complications; Z79.82 Long term (current) use of aspirin; N40.0 Benign prostatic hyperplasia without lower urinary tract symptoms
CPT/HCPCS: 49650; 36416; 51702; 80048; 82962; 85025; 88304; 93005; C1781; C9290; J0131; J0744; J1100; J1644; J2405; J2704; J2710; J3010; J3490; J7030

== ENCOUNTER → 2022-05-09 13:53 | Outpatient (BNVA) | payer MEDICARE, SELFPAY | PROVIDERS: PCP Family Medicine; Visit Provider Surgery | DX: Z09 Encounter for follow-up examination after completed treatment for conditions other than malignant neoplasm (principal) | CPT/HCPCS: 99024 ==

== ENCOUNTER → 2022-05-17 11:02 | Outpatient (BNVA) | payer MEDICARE, SELFPAY | PROVIDERS: PCP Family Medicine; Visit Provider Surgery | DX: Z09 Encounter for follow-up examination after completed treatment for conditions other than malignant neoplasm (principal) | CPT/HCPCS: 99212 ==

== ENCOUNTER → 2022-05-20 08:19 | Outpatient (BNVA) | payer MEDICARE, SELFPAY | PROVIDERS: PCP Family Medicine; Visit Provider Surgery | DX: Z09 Encounter for follow-up examination after completed treatment for conditions other than malignant neoplasm (principal) | CPT/HCPCS: 99024 ==

== ENCOUNTER → 2022-10-21 10:35 | Outpatient (BNVA) | payer MEDICARE, SELFPAY | PROVIDERS: PCP Family Medicine; Visit Provider Internal Medicine | DX: I11.0 Hypertensive heart disease with heart failure (principal); I50.20 Unspecified systolic (congestive) heart failure; I25.10 Atherosclerotic heart disease of native coronary artery without angina pectoris; I48.91 Unspecified atrial fibrillation; E11.9 Type 2 diabetes mellitus without complications | CPT/HCPCS: 99214 ==

== ENCOUNTER → 2023-02-14 10:16 | Outpatient (BNVA) | payer MEDICARE, SELFPAY | PROVIDERS: PCP Family Medicine; Visit Provider Nurse Practitioner Family | DX: E11.9 Type 2 diabetes mellitus without complications (principal); R74.01 Elevation of levels of liver transaminase levels; I10 Essential (primary) hypertension | CPT/HCPCS: 80053; 80061; 81000; 83036; 85025 ==

== ENCOUNTER → 2023-06-13 12:50 | Outpatient (BNVA) | payer MEDICARE, SELFPAY | PROVIDERS: PCP Family Medicine; Visit Provider Internal Medicine | DX: I11.0 Hypertensive heart disease with heart failure (principal); I50.20 Unspecified systolic (congestive) heart failure; I25.10 Atherosclerotic heart disease of native coronary artery without angina pectoris; I48.91 Unspecified atrial fibrillation; E11.9 Type 2 diabetes mellitus without complications | CPT/HCPCS: 99214 ==

== ENCOUNTER → 2023-12-05 11:44 | Outpatient (BNVA) | payer MEDICARE, SELFPAY | PROVIDERS: PCP Family Medicine; Visit Provider Nurse Practitioner Family | DX: E11.9 Type 2 diabetes mellitus without complications (principal); I48.91 Unspecified atrial fibrillation; I10 Essential (primary) hypertension | CPT/HCPCS: 80053; 80061; 83036; 85025 ==

== ENCOUNTER → 2023-12-19 11:37 | Outpatient (BNVA) | payer MEDICARE, SELFPAY | PROVIDERS: PCP Family Medicine; Visit Provider Internal Medicine | DX: I11.0 Hypertensive heart disease with heart failure (principal); I50.20 Unspecified systolic (congestive) heart failure; I25.10 Atherosclerotic heart disease of native coronary artery without angina pectoris; I48.91 Unspecified atrial fibrillation; E11.9 Type 2 diabetes mellitus without complications; Z87.891 Personal history of nicotine dependence | CPT/HCPCS: 99214 ==

== ENCOUNTER 2024-06-12 15:05 | Outpatient (CLI) | payer MEDICARE, SELFPAY ==
[2024-06-12 16:03] LABS: Estmated Average Glucose 166; Hemoglobin A1C 7.4 % (4.0-6.0)
[2024-06-12 16:52] LABS: Blood Urea Nitrogen 19 mg/dL (8-23); Calcium 10.2 mg/dL (8.5-10.5); Carbon Dioxide 25 mmol/L (22-29); Chloride 98 mmol/L (98-107); Glucose 295 mg/dL (65-115); Osmolality Calculated 293 mOsm/kg (285-295); Sodium 135 mmol/L (136-145)
== END 2024-06-12 15:06 | disposition home or self-care (01) ==
PROVIDERS: PCP Family Medicine; Visit Provider Nurse Practitioner Family
DX: E11.9 Type 2 diabetes mellitus without complications (principal); I10 Essential (primary) hypertension
CPT/HCPCS: 36415; 80048; 83036

== ENCOUNTER → 2024-09-17 12:35 | Outpatient (BNVA) | payer MEDICARE, SELFPAY | PROVIDERS: PCP Family Medicine; Visit Provider Internal Medicine | DX: I11.0 Hypertensive heart disease with heart failure (principal); I50.20 Unspecified systolic (congestive) heart failure; E11.9 Type 2 diabetes mellitus without complications; I25.10 Atherosclerotic heart disease of native coronary artery without angina pectoris; I48.91 Unspecified atrial fibrillation | CPT/HCPCS: 99214 ==

== ENCOUNTER → 2024-12-17 11:26 | Outpatient (BNVA) | payer MEDICARE, SELFPAY | PROVIDERS: PCP Nurse Practitioner Family; Visit Provider Nurse Practitioner Family | DX: R10.9 Unspecified abdominal pain (principal); I50.20 Unspecified systolic (congestive) heart failure; I25.10 Atherosclerotic heart disease of native coronary artery without angina pectoris; I48.91 Unspecified atrial fibrillation; I10 Essential (primary) hypertension; E11.9 Type 2 diabetes mellitus without complications; E55.9 Vitamin D deficiency, unspecified; Z12.5 Encounter for screening for malignant neoplasm of prostate | CPT/HCPCS: 80053; 80061; 81003; 82150; 82306; 83036; 83690; 84443; 85025; G0103 ==